=== PATIENT | male | born 1955 | race Hispanic/Latino ===

== ENCOUNTER 2017-03-26 20:55 | Inpatient (IN) | payer MEDICARE ==
[2017-03-26 22:16] LABS: ABG ALLEN TEST YES; ARTERIAL BLOOD GAS HCO3 26.9 mmol/L (21-28); ARTERIAL BLOOD GAS PH 7.44 (7.35-7.45); ARTERIAL BLOOD GAS PO2 58 mm/Hg (80-100)
[2017-03-26 22:19] LABS: BASO # 0.1 K/uL (0.0-0.2); EOS # 0.3 K/uL (0.0-0.7); EOS % 5.1 % (0.0-4.0); HEMATOCRIT 40.4 % (35.0-51.0); LYMPH # 1.9 K/uL (1.0-4.3); LYMPH % 28.2 % (20.0-40.0); MEAN CELL VOLUME 82.7 fl (80.0-94.0); MEAN CORPUSCULAR HEMOGLOBIN 27.3 pg (27.0-31.0); MEAN CORPUSCULAR HGB CONC 33.1 g/dL (33.0-37.0); MEAN PLATELET VOLUME 7.1 fl (7.2-11.7); MONO # 0.7 K/uL (0.0-0.8); MONO % 10.1 % (0.0-10.0); NEUT # 3.8 K/uL (1.8-7.0); NEUT % 55.6 % (50.0-75.0); RED CELL DISTRIBUTION WIDTH 15.7 % (11.5-14.5); WHITE BLOOD COUNT 6.8 K/uL (4.8-10.8)
--- NOTE | 2017-03-26 22:22 | ED PDOC ---
HPI: SOB/CHF/COPD Time Seen by Provider: 03/26/17 21:00 Chief Complaint (Nursing): Shortness Of Breath Chief Complaint (Provider): Shortness of Breath History Per: Patient, Family History/Exam Limitations: no limitations Onset/Duration Of Symptoms: Days (x 1) Additional Complaint(s): 61 year old male with past medical history of glioblastoma, atherosclerosis and seizures, brought in by family, who presents to the emergency department with difficulty breathing since yesterday. Patient is reported by family to be generally weaker than baseline. He fell off the couch onto the carpet earlier today and is reported as being less verbal than normal. Was just discharged from [facility]. Dr. Hughes pt neurologist at [facility] did an EEG this morning that was negative and started patient on seizure medication. Denies fever, vomiting, diarrhea. PMD: Dr. Les Holguin MD Past Medical History Reviewed: Historical Data, Nursing Documentation, Vital Signs Vital Signs: Last Vital Signs Temp 97.6 F 03/27/17 02:35 Pulse 70 03/27/17 04:15 Resp 18 03/27/17 02:44 BP 175/90 H 03/27/17 02:35 Pulse Ox 93 L 03/27/17 04:57 - Medical History PMH: Diabetes, HTN, Seizures - Surgical History Other surgeries: Brain surgery. History of neoblastoma - Family History Family History: States: Unknown Family Hx - Social History Current smoker - smoking cessation education provided: No Alcohol: None - Home Medications Home Medications: Ambulatory Orders Medication Instructions Recorded Cilostazol [Pletal] 50 mg PO Q12 03/27/17 Clopidogrel [Plavix] 75 mg PO DAILY 03/27/17 Ergocalciferol (Vitamin D2) 1.25 mg PO QWK 03/27/17 [Vitamin D2] Escitalopram [Lexapro] 10 mg PO DAILY 03/27/17 Iron Ps Cmplx/Vit B12/FA [Ferrex 150 mg PO Q12 03/27/17 150 Forte Capsule] Labetalol [Trandate] 100 mg PO Q12 03/27/17 Lacosamide [Vimpat] 150 mg PO Q12 03/27/17 Linagliptin [Tradjenta] 5 mg PO DAILY 03/27/17 Metformin HCl [Glucophage] 500 mg PO DAILY 03/27/17 Rosuvastatin Calcium [Crestor] 20 mg PO DAILY 03/27/17 Ubidecarenone [Coq-10] 100 mg PO DAILY 03/27/17 - Allergies Allergies/Adverse Reactions: Allergies Allergy/AdvReac Type Severity Reaction Status Date / Time No Known Allergies Allergy Verified 03/30/15 08:43 Review of Systems ROS Statement: Except As Marked, All Systems Reviewed And Found Negative (as per HPI, otherwise negative) Constitutional: Positive for: Weakness (Generalized). Negative for: Fever Respiratory: Positive for: Other (Difficulty breathing) Gastrointestinal: Negative for: Vomiting, Diarrhea Neurological: Positive for: Other (Less verbal) Physical Exam - Reviewed Nursing Documentation Reviewed: Yes Vital Signs Reviewed: Yes - Physical Exam Appears: Positive for: Non-toxic, No Acute Distress Head Exam: Positive for: ATRAUMATIC, NORMAL INSPECTION, NORMOCEPHALIC Skin: Positive for: Normal Color, Warm, Dry Eye Exam: Positive for: Normal appearance, PERRL Cardiovascular/Chest: Positive for: Regular Rate, Rhythm. Negative for: Murmur Respiratory: Positive for: Normal Breath Sounds. Negative for: Accessory Muscle Use, Respiratory Distress Gastrointestinal/Abdominal: Positive for: Normal Exam, Soft. Negative for: Tenderness Extremity: Negative for: Pedal Edema Neurologic/Psych: Positive for: Alert, Oriented (x1. Only to his name. ), Facial Droop (according to family, this is from previous (left facial)), Other (responsive to painful and verbal stimuli; follows basic commands). Negative for: Motor/Sensory Deficits - Laboratory Results Result Diagrams: 03/26/17 22:10 03/26/17 22:10 - ECG O2 Sat by Pulse Oximetry: 93 (RA) Pulse Ox Interpretation: Normal Medical Decision Making Medical Decision Making: Time: 21:50 Clinical Impression:weakness rule out infection as well as stroke. Initial Plan: --ABG Shock Panel --Heat CT without contrast --CMP --CBC (with differential) --Chest X-ray --Urine C&S --Urinalysis --Sodium Chloride 150 mls/hr IV Time: 21:50 --Spoke with Dr. Holguin. He agreed with plan of imaging and labs. --Dr. Holguin wants to consult Dr. Quezada of neurology 3[address] FINDINGS Brain: Ezff-wa-pmcorlca atrophy. No intracranial hemorrhage. No definite mass. Small calcification within brainstem. No definite edema. Probable mild encephalomalacia within LEFT temporal region. Several scattered foci of decreased attenuation within periventricular/ subcortical white matter. No definite edema. Ventricles: No hydrocephalus. Bones/joints: No acute fracture. LEFT craniotomy. Soft tissues: Unremarkable. Sinuses: Scattered pfzt-mz-jyfcxgrr mucosal thickening of ethmoid sinuses. Scattered minimal to mild mucosal thickening of remaining sinuses. Mastoid air cells: No mastoid effusion. Orbits: Unremarkable as visualized. IMPRESSION: 1. Nonspecific white matter changes. Acute infarction may be CT occult within first 24 hours. If a focal deficit persists, consider followup CT or MRI for further evaluation. 2. Incidental/non-acute findings are described above. Pt and family refusing Urine. explained that we need it to rule out UTI. ABG noted, o2 slightly low. patients 02 sat on room air is 95%. family raises issue that pt could have sleep apnea, doest sleep well at night/snoring etc Scribe Attestation: Documented by Moncia Peacock, acting as a scribe for Kamilla Casetllanos MD. Provider Scribe Attestation: All medical record entries made by the Scribe were at my direction and personally dictated by me. I have reviewed the chart and agree that the record accurately reflects my personal performance of the history, physical exam, medical decision making, and the department course for this patient. I have also personally directed, reviewed, and agree with the discharge instructions and disposition. Disposition - Clinical Impression Clinical Impression: Generalized weakness, Falls - Disposition Disposition Time: 23:00 Condition: STABLE
[2017-03-26 22:27] LABS: ALB/GLOB RATIO 1.2 (1.0-2.1); ALKALINE PHOSPHATASE 68 U/L (38-126); ALT/SGPT 32 U/L (21-72); AST/SGOT 25 U/L (17-59); BILIRUBIN,TOTAL 0.2 mg/dl (0.2-1.3); BLOOD UREA NITROGEN 16 mg/dl (9-20); CALCIUM 8.9 mg/dL (8.4-10.2); CARBON DIOXIDE 25 mmol/L (22-30); CHLORIDE 106 mmol/L (98-107); GFR AFRICAN-AMERICAN > 60; GLUCOSE,RANDOM 114 mg/dL (75-110); POTASSIUM 3.9 MMOL/L (3.6-5.0); SODIUM 142 mmol/l (132-148); TOTAL PROTEIN 7.9 G/DL (6.3-8.2)
[2017-03-26] MEDS ORDERED: Sodium Chloride 0.9% 1,000 ML IV STA (22:47)
--- NOTE | 2017-03-26 23:28 | CT ---
EXAM: CT Head Without Intravenous Contrast CLINICAL HISTORY: 61 years old, male; Condition or disease; Other: Lethargy; Prior surgery; Surgery date: 6+ months; Surgery type: 2010; Patient HX: Neoblastoma; Additional info: Lethargy. Sent phy. Doc. TECHNIQUE: Axial computed tomography images of the head/brain without intravenous contrast. All CT scans at this facility use one or more dose reduction techniques, viz.: automated exposure control; ma/kV adjustment per patient size (including targeted exams where dose is matched to indication; i.e. head); or iterative reconstruction technique. Coronal and sagittal reformatted images were created and reviewed. COMPARISON: MR - BRAIN W WO CONTRAST 2015-03-30 08:07 FINDINGS: Brain: Otsa-oc-llzcifax atrophy. No intracranial hemorrhage. No definite mass. Small calcification within brainstem. No definite edema. Probable mild encephalomalacia within LEFT temporal region. Several scattered foci of decreased attenuation within periventricular/subcortical white matter. No definite edema. Ventricles: No hydrocephalus. Bones/joints: No acute fracture. LEFT craniotomy. Soft tissues: Unremarkable. Sinuses: Scattered apjb-nc-klsaprrs mucosal thickening of ethmoid sinuses. Scattered minimal to mild mucosal thickening of remaining sinuses. Mastoid air cells: No mastoid effusion. Orbits: Unremarkable as visualized. IMPRESSION: 1. Nonspecific white matter changes. Acute infarction may be CT occult within first 24 hours. If a focal deficit persists, consider followup CT or MRI for further evaluation. 2. Incidental/non-acute findings are described above.
[2017-03-27] MEDS ORDERED: Ergocalciferol 50,000 Intl Units Cap PO SCH (04:15)
[2017-03-27 06:36] LABS: MAGNESIUM 2.1 MG/DL (1.6-2.3); PHOSPHOROUS 3.7 mg/dl (2.5-4.5)
[2017-03-27] MEDS ORDERED: UBIDECARENONE 100 MG PO SCH (09:00)
[2017-03-27] MEDS ORDERED: [UNRECOGNIZED DRUG - OTHER] PO SCH (09:00)
[2017-03-27] MEDS ORDERED: IRON PS CMPLX PO SCH (09:00)
[2017-03-27] MEDS ORDERED: VIT B12 PO SCH (09:00)
[2017-03-27] MEDS: Insulin Regular 100 units/ml SC SCH ×3 (09:09→16:43)
--- NOTE | 2017-03-27 09:29 | RAD ---
HISTORY: lethargy COMPARISON: No prior. FINDINGS: LUNGS: No consolidation. Lung volumes are shallow - PLEURA: No significant pleural effusion identified, no pneumothorax apparent. CARDIOVASCULAR: Heart size within normal limits - crowded central pulmonary vasculature OSSEOUS STRUCTURES: No significant abnormalities. VISUALIZED UPPER ABDOMEN: Normal. OTHER FINDINGS: None. IMPRESSION: Limited exam-given shallow inspiration /shallow lung volumes. No obvious cardiopulmonary pathology appreciated
[2017-03-27] MEDS ORDERED: Sodium Chloride 3% for Inhalation 4 ML VIAL.NEB IH PRN (09:32)
[2017-03-27] MEDS ORDERED: Albuterol-Ipratrop 3 mg / 0.5 (3 ml) UD INH PRN (09:35)
[2017-03-27] MEDS ORDERED: Gadodiamide 287 MG/ML VIAL (15ML) IV ONE (09:46)
--- NOTE | 2017-03-27 10:29 | CP.PCM.PN ---
Subjective - Date & Time of Evaluation Date of Evaluation: 03/27/17 Time of Evaluation: 10:24 - Subjective Subjective: 61 year old male admitted with neurological issues was found to have 600cc pvr on straight catheterazation,pt has hx glioblastoma and is being worked up for acute pathology by neurology,PT is in mri at this time Suggest start pt on flomax get urine c&s Cath again after flomax and if PVR is greater then 250cc leave renae in place. [place] Objective - Vital Signs/Intake and Output Vital Signs (last 24 hours): Temp Pulse Resp BP Pulse Ox 97 F L 70 18 164/89 H 99 03/27/17 08:00 03/27/17 08:00 03/27/17 08:00 03/27/17 08:00 03/27/17 08:00 - Medications Medications: Current Medications Albuterol/Ipratropium (Duoneb 3 Mg/0.5 Mg (3 Ml) Ud) 3 ml INH RQ6 PRN PRN Reason: Shortness of Breath Atorvastatin Calcium (Lipitor) 40 mg PO DAILY [facility] Cilostazol (Pletal) 50 mg PO Q12 [facility] Clopidogrel Bisulfate (Plavix) 75 mg PO DAILY [facility] Ergocalciferol (Drisdol 50,000 Intl Units Cap) 1 cap PO QWK [facility] Escitalopram Oxalate (Lexapro) 10 mg PO DAILY [facility] Home Med (Iron Ps Cmplx/Vit B12/Fa [Ferrex 150 Forte Capsule]) 150 mg PO Q12 [facility] Home Med (Ubidecarenone [Coq-10]) 100 mg PO DAILY [facility] Insulin Human Regular (Humulin R) 0 units SC BID [facility] PRN Reason: Protocol Last Admin: 03/27/17 09:10 Dose: Not Given Labetalol HCl (Trandate) 100 mg PO Q12 [facility] Lacosamide (Vimpat) 150 mg PO Q12 [facility] Metformin HCl (Glucophage) 500 mg PO DAILY [facility] Sitagliptin Phosphate (Januvia) 100 mg PO DAILY [facility] Tamsulosin HCl (Flomax) 0.4 mg PO DAILY [facility] - Labs Labs: 03/26/17 22:10 03/26/17 22:10
[2017-03-27 10:41] LABS: RBC URINE 9 /hpf (0-3); URINE BACTERIA RARE (<OCC); URINE BILIRUBIN NEGATIVE (NEGATIVE); URINE BLOOD SMALL (NEGATIVE); URINE COLOR YELLOW (YELLOW); URINE GLUCOSE (UA) NEG (Normal); URINE KETONE NEGATIVE (NEGATIVE); URINE LEUKOCYTE ESTERASE NEG Leu/uL (Negative); URINE PROTEIN NEGATIVE (NEGATIVE); URINE UROBILINOGEN 0.2-1.0 mg/dL (0.2-1.0); WBC URINE < 1 /hpf (0-5)
--- NOTE | 2017-03-27 11:18 | MRI ---
PROCEDURE: MRI BRAIN WITH AND WITHOUT CONTRAST HISTORY: recurrent mass COMPARISON: Comparison is made to the previous study dated 03/30/2015 TECHNIQUE: Multiplanar, multisequence MR images of the brain were obtained with and without intravenous contrast enhancement. FINDINGS: HEMORRHAGE: None DWI: There are foci of diffusion restriction noted at the right indu and left internal capsule consistent with acute / early subacute infarction. BRAIN PARENCHYMA: Foci of encephalomalacia is again noted at the left temporal region without evidence of enhancement likely represent encephalomalacia and post surgical changes given the patient's history of prior tumor resection at this region. There is adjacent ex vacuo dietitian of the left lateral ventricle. Bexi-em-dndbznkv atrophy is again noted. Moderate to extensive white matter chronic microvascular ischemic changes are again noted. ENHANCEMENT: No abnormal intracranial enhancement. VENTRICLES: Unremarkable. No hydrocephalus. CRANIUM: Unremarkable. ORBITS: Grossly unremarkable. PARANASAL SINUSES/MASTOIDS: Mild sinuses mucosal thickening is noted without evidence of air-fluid level. VASCULAR SYSTEM: Skull base flow voids intact. OTHER FINDINGS: None . IMPRESSION: Foci of diffusion restriction with mild increased FLAIR signal noted at the right indu and left internal capsule consistent with acute/ early subacute infarction. Otherwise no significant interval change compared to the previous exam. No evidence of enhancing mass lesion in the brain. Findings were reported to and discussed with the referring Dr.Krish Vikas MCDONOUGH at 11:07 a.m. on 03/27/2017.
[2017-03-27 12:09] VITALS: BMI 29.2
[2017-03-27] MEDS: Lacosamide 50 MG Tab PO SCH ×2 (13:10→22:25)
[2017-03-27] MEDS: Cilostazol 50 mg Tab UD PO SCH ×2 (13:12→22:25)
--- NOTE | 2017-03-27 15:16 | US ---
PROCEDURE: Bilateral duplex Doppler carotid arterial ultrasound examination HISTORY: falls lethargy COMPARISON: Not available TECHNIQUE: Ultrasound examination of the carotid and vertebral arteries was performed utilizing a linear array color Doppler transducer. FINDINGS: Right carotid artery: Intimal thickening seen throughout the CCA. No atheromatous plaque identified. Peak systolic velocity measurements: CCA: 111.3 cm/sec ICA: 62.9 cm/sec ICA/CCA peak systolic velocity ratio: 0.6 Antegrade flow demonstrated in vertebral artery Left carotid artery: Intimal thickening seen throughout CCA. No atheromatous plaque identified. Peak systolic velocity measurements: CCA: 92.4 cm/sec ICA: 74.7 cm/sec ICA/CCA peak systolic velocity ratio: 0.8 Antegrade flow demonstrated in vertebral artery IMPRESSION: No evidence of hemodynamically significant carotid arterial stenosis bilaterally (less than 50 percent).
--- NOTE | 2017-03-27 16:26 | CARD ---
APPROVED REPORT EKG Measurement Heart [id number] <Conclusion> Normal sinus rhythm Nonspecific T wave abnormality Abnormal ECG
[2017-03-27] MEDS: Aspirin-Dipyridamole 200-25 mg ER Cap PO SCH (16:43)
[2017-03-27] MEDS: Sodium Chloride 0.9% 1,000 ML IV SCH (19:30)
--- NOTE | 2017-03-27 20:30 | MRI ---
EXAM: MR Angiography Neck Without Intravenous Contrast CLINICAL HISTORY: 61 years old, male; Signs and symptoms; Other: Vasculitis TECHNIQUE: Magnetic resonance angiography images of the neck without intravenous contrast. COMPARISON: No relevant prior studies available. FINDINGS: Right common carotid artery: No significant stenosis. No dissection or occlusion. Right internal carotid artery: No significant stenosis. No dissection or occlusion. Right external carotid artery: No occlusion. Right vertebral artery: Diminutive. No dissection or occlusion. Left common carotid artery: No significant stenosis. No dissection or occlusion. Left internal carotid artery: No significant stenosis. No dissection or occlusion. Left external carotid artery: No occlusion. Left vertebral artery: Dominant. No dissection or occlusion. Soft tissues: Unremarkable as visualized. CAROTID STENOSIS REFERENCE USING NASCET CRITERIA: % ICA stenosis = (1 - narrowest ICA diameter/diameter of distal cervical ICA) x 100. Mild - <50% stenosis. Moderate - 50-69% stenosis. Severe - 70-94% stenosis. Near occlusion - 95-99% stenosis. Occluded - 100% stenosis. IMPRESSION: No significant stenosis or occlusion.
--- NOTE | 2017-03-28 00:59 | CON ---
DATE: 03/27/2017 REASON FOR THE CONSULTATION: Change in mental status and new weakness. CHIEF COMPLAINT: The patient was brought into [facility] with history of progressive weakness and change in mental status. From neurological point of view, I was called in to evaluate him for further management. HISTORY OF PRESENTING ILLNESS: Mr. Margo Martinez is a 61-year-old right-handed Stateless male who is known to me for the last more than 3 years. He is being seen by me for his new onset of seizures and workup showed left temporal lobe primary tumor (glioblastoma). Following that, he did undergo craniotomy, radiation, and chemotherapy. Patient was kept on Vimpat 150 mg for his seizure prophylaxis. He has been doing well and he has been doing his day-to-day activities. No recent seizures. Recently been evaluated by Dr. Uribe as outpatient; he did have electroencephalogram in his office and electroencephalogram shows bilateral slow activities with some sharp wave activities over his left temporal region. Medications were trying to be adjusted for the abnormal change in mental status and abnormal EEGs. However, his status got worsened to become a problem in swallow, speech, including change in mental status and progressive weakness on his right side. No history of loss of consciousness or any involuntary movements during the whole process of his event. PAST MEDICAL HISTORY: Hypertension, diabetes mellitus, dyslipidemia, primary brain tumor status post surgery, radiation therapy, and seizures. PERSONAL HISTORY: Denies smoking or alcohol use. ALLERGIES: NO KNOWN ALLERGIES. REVIEW OF SYSTEMS: Twelve-point system being reviewed. From neuro, new onset of weakness. MEDICATIONS: Drisdol, DuoNeb, Flomax, Glucophage, Humulin, Januvia, Lexapro, Lipitor, Plavix, cilostazol, and Vimpat. PHYSICAL EXAMINATION: VITAL SIGNS: Blood pressure 121/73, mean arterial pressure of 89, respiratory rate of 16, temperature 97.7 with a pulse rate of 75, regular. NECK: Supple. No carotid bruit. HEART: Sounds regular. EXTREMITIES: Left leg externally rotated. NEUROLOGIC: Patient is arousable on calling his name. He knows his family members; however, he could not recognize me. He does not follow commands. He falls back asleep with snoring. No Shivam-Strokes breathing pattern. His speech is dysarthric. No clear speech output noted. Cranial Nerve Examination: Responded to visual threat on his both sides. Corneal reflex is present. No facial sensory deficit. Dense facial asymmetry manifesting with flattening of left nasolabial fold. Impaired gag. Motor Examination: Dense hemiplegia on his left side. Deep tendon reflexes, trace. Plantars are upgoing majestically on his left side, right side was equivocal response. Sensory Examination: Responded to pain symmetrically on both sides. Coordination: Gait is deferred at this time. Patient also showed evidence of urinary retention. WORKUP: MRI of the brain showed diffusion-weighted image mismatch at right pontine and left thalamic region with superimposed encephalomalacia over his left temporal lobe. Patient also showed significant evidence of periventricular ischemic changes consistent with his small vessel disease secondary to his hypertension and diabetes mellitus with superimposed radiationd history. RECOMMENDATIONS: 1. The patient being on Plavix only; I would like to put him on better dual antiplatelets, Aggrenox is given. 2. Speech and swallow evaluation and follow their recommendation. 3. Keep the head in elevation. 4. Keep mean arterial pressure around 90 to 100. 5. Aspiration precaution.and continuos Michaels catheterization The patient's condition extensively discussed with Dr. Holguin as well as Dr. Bryan. Patient also is scheduled to have transesophageal echocardiogram on Saturday and routine echocardiogram does not show any left atrial enlargement or any thrombus formation in the atrium as well as in the ventricle. The patient will be followed closely with you. Vikas Quezada MD [facility]
--- NOTE | 2017-03-28 08:54 | RAD ---
PROCEDURE: CHEST RADIOGRAPH, 1 VIEW HISTORY: PNEUMONIA COMPARISON: 03/26/2017 FINDINGS: LUNGS: Clear. PLEURA: No pneumothorax or pleural fluid seen. CARDIOVASCULAR: Normal. OSSEOUS STRUCTURES: No significant abnormalities. VISUALIZED UPPER ABDOMEN: Normal. OTHER FINDINGS: None. IMPRESSION: No new infiltrate or CHF. Improved aeration.
--- NOTE | 2017-03-28 09:35 | CP.PCM.PN ---
Subjective - Date & Time of Evaluation Date of Evaluation: 03/28/17 Time of Evaluation: 09:37 - Subjective Subjective: MORE AWAKE TODAY MOTHER AT BEDSIDE STILL HAVING PROBLEMS SWALLOWING FOOD Objective - Vital Signs/Intake and Output Vital Signs (last 24 hours): Temp Pulse Resp BP Pulse Ox 98.1 F 72 18 143/77 99 03/28/17 08:23 03/28/17 08:23 03/28/17 08:23 03/28/17 08:23 03/28/17 08:23 Intake and Output: 03/28/17 03/28/17 06:59 18:59 Intake Total 720 Output Total 550 Balance 170 - Medications Medications: Current Medications Albuterol/Ipratropium (Duoneb 3 Mg/0.5 Mg (3 Ml) Ud) 3 ml INH RQ6 PRN PRN Reason: Shortness of Breath Atorvastatin Calcium (Lipitor) 40 mg PO DAILY [facility] Last Admin: 03/27/17 13:12 Dose: 40 mg Cilostazol (Pletal) 50 mg PO Q12 [facility] Last Admin: 03/27/17 22:25 Dose: 50 mg Clopidogrel Bisulfate (Plavix) 75 mg PO DAILY [facility] Last Admin: 03/27/17 13:12 Dose: 75 mg Dipyridamole/Aspirin (Aggrenox 25-200 Mg) 1 ea PO BID [facility] Last Admin: 03/27/17 16:43 Dose: 1 ea Ergocalciferol (Drisdol 50,000 Intl Units Cap) 1 cap PO QWK [facility] Escitalopram Oxalate (Lexapro) 10 mg PO DAILY [facility] Last Admin: 03/27/17 13:12 Dose: 10 mg Home Med (Iron Ps Cmplx/Vit B12/Fa [Ferrex 150 Forte Capsule]) 150 mg PO Q12 [facility] Home Med (Ubidecarenone [Coq-10]) 100 mg PO DAILY [facility] Sodium Chloride (Sodium Chloride 0.9%) 1,000 mls @ 60 mls/hr IV .[id number] [facility] Stop: 03/28/17 17:34 Last Admin: 03/27/17 19:30 Dose: 60 mls/hr Insulin Human Regular (Humulin R) 0 units SC BID [facility] PRN Reason: Protocol Last Admin: 03/27/17 16:43 Dose: Not Given Labetalol HCl (Trandate) 100 mg PO Q12 [facility] Last Admin: 03/27/17 22:25 Dose: 100 mg Lacosamide (Vimpat) 150 mg PO Q12 [facility] Last Admin: 03/27/17 22:25 Dose: 150 mg Metformin HCl (Glucophage) 500 mg PO DAILY [facility] Last Admin: 03/27/17 13:10 Dose: 500 mg Sitagliptin Phosphate (Januvia) 100 mg PO DAILY [facility] Last Admin: 03/27/17 10:00 Dose: Not Given Tamsulosin HCl (Flomax) 0.4 mg PO DAILY [facility] Last Admin: 03/27/17 13:10 Dose: 0.4 mg Tamsulosin HCl (Flomax) 0.4 mg PO DAILY [facility] - Labs Labs: 03/26/17 22:10 03/26/17 22:10 - Constitutional Appears: Chronically Ill - Head Exam Head Exam: ATRAUMATIC, NORMAL INSPECTION, NORMOCEPHALIC - Eye Exam Eye Exam: EOMI, Normal appearance, PERRL Pupil Exam: NORMAL ACCOMODATION, PERRL - ENT Exam ENT Exam: Mucous Membranes Moist, Normal Exam - Neck Exam Neck Exam: Full ROM, Normal Inspection. absent: Lymphadenopathy - Respiratory Exam Respiratory Exam: Decreased Breath Sounds, Rales, NORMAL BREATHING PATTERN - Cardiovascular Exam Cardiovascular Exam: REGULAR RHYTHM, +S1, +S2. absent: Murmur - GI/Abdominal Exam GI & Abdominal Exam: Soft, Normal Bowel Sounds. absent: Tenderness - Rectal Exam Rectal Exam: NORMAL INSPECTION - Extremities Exam Extremities Exam: Full ROM, Normal Capillary Refill, Normal Inspection. absent : Joint Swelling, Pedal Edema - Back Exam Back Exam: NORMAL INSPECTION - Neurological Exam Neurological Exam: Alert, Awake, CN II-XII Intact - Skin Skin Exam: Dry, Intact, Normal Color, Warm Assessment and Plan - Assessment and Plan (Free Text) Assessment: ASPIRATION PNEUMONIA PROBABLY DUE TO NEW BRAIN INFARCT Plan: CONTINUE PULMONARY TOILETRY NO NEED FOR ANTIBIOTIC RX AT PRESENT UNLESS FEVER/PURULENT SECRETIONS/POSITIVE CULTURES RESULT
[2017-03-28] MEDS: Insulin Regular 100 units/ml SC SCH ×2 (09:37→16:46)
[2017-03-28] MEDS: Cilostazol 50 mg Tab UD PO SCH ×2 (09:39→20:36)
[2017-03-28] MEDS: Aspirin-Dipyridamole 200-25 mg ER Cap PO SCH ×2 (09:40→17:26)
[2017-03-28] MEDS: Lacosamide 50 MG Tab PO SCH ×2 (09:44→20:34)
[2017-03-28] MEDS: Sodium Chloride 0.9% 1,000 ML IV SCH (12:33)
--- NOTE | 2017-03-28 16:24 | PN ---
DATE: 03/28/2017 SUBJECTIVE: The patient is seen today on 03/28/2017. He is not in any cardiopulmonary distress. The patient still has significant choking and difficulty swallowing. The patient is still open for swallowing evaluation. PHYSICAL EXAMINATION VITAL SIGNS: Blood pressure is 140/70, temperature 98.2, respiratory rate 18 and pulse is 72. HEENT: Pupils equal, reactive to light. Normal-appearing mucosa of the conjunctivae, oropharynx and nasal membrane mucosa. NECK: Supple. No JVD. No carotid bruit. No lymph nodes. No thyromegaly. CHEST AND LUNGS: Bilateral symmetrical expansion. Good air exchange. No rales, no rhonchi. CARDIOVASCULAR: PMI not localized. S1 and S2. No additional sounds. ABDOMEN: Normoactive bowel sounds. No tenderness. No organomegaly. No masses. EXTREMITIES: No cyanosis, no clubbing, no edema. 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 ASSESSMENT: 1. 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 2. Status post brain surgery for glioblastoma in 2010, status post radiation therapy and chemotherapy, currently being followed [facility] and he is not in any active oncology treatment. 3. Type 2 diabetes mellitus. 4. Hypertension. PLAN: Continue current medications and follow recommendations of Neurology. Les Holguin MD
--- NOTE | 2017-03-28 20:53 | PN ---
DATE: SUBJECTIVE: The patient is slightly more awake. He still has expressive aphasia and significant left-sided weakness. No reports of arrhythmia. PHYSICAL EXAMINATION: VITAL SIGNS: Blood pressure 151/82, heart rate 81, temperature 97.8, respirations 18. HEENT: Loss of left nasolabial fold. CHEST: Clear. HEART: S1 and S2 regular. EXTREMITIES: No edema. LABORATORY DATA: Today's blood sugar is 120. Today's chest x-ray revealed no new infiltrate or CHF. Improved aeration. ASSESSMENT: 1. Acute/subacute cerebrovascular accident involving the right side of the indu and the left internal capsule with residual left hemiplegia and expressive aphasia. 2. History of left temporal glioblastoma removal, six years ago. 3. Hypertension and diabetes mellitus. RECOMMENDATION: Continue current Aggrenox at 1 tablet twice a day, metformin 500 mg daily, Lipitor 20 mg once a day, Plavix 75 mg once a day, Pletal 50 mg p.o. twice a day, labetalol mg p.o. twice a day. The patient was evaluated by Dr. Murrell today and he recommended to continue pulmonary toiletry, no need for antibiotics at present time. Raúl Bryan MD
[2017-03-29] MEDS ORDERED: Dextrose 5%/0.9% NS 1,000 ML IV SCH (07:45)
--- NOTE | 2017-03-29 07:49 | HP ---
DATE: 03/27/2017 HISTORY OF PRESENT ILLNESS: This is a 61-year-old [place] male with history of status post brain surgery for glioblastoma, currently on antiseizure medications. The patient presented to the hospital for symptoms of inability to walk and difficulty in speech that has been happening in a fluctuating way for 4 days prior to this admission. The patient had previous visits to emergency room and one-night admission to the hospital during the last 4 days prior to this admission for similar presentation. The patient was admitted through emergency room for further management after neurology was consulted. CAT scan of the head was done that did not show any acute focal lesions. REVIEW OF SYSTEM: Other review of systems is not obtainable as the patient is aphasic at this time of examination. ALLERGIES: NO KNOWN ALLERGY. HOME MEDICATIONS: As per MAR. PAST MEDICAL HISTORY: Status post brain surgery glioblastoma multiforme done in 09/2010. Hypertension and type 2 diabetes mellitus. SOCIAL HISTORY: No history of smoking, EtOH, or substance abuse. FAMILY HISTORY: Noncontributory. PHYSICAL EXAMINATION: GENERAL: The patient is in bed, not in any cardiopulmonary distress. VITAL SIGNS: Blood pressure 126/75, temperature 98.3, respiratory rate 14 and pulse of 85. HEENT: Pupils equal, reactive to light. Normal-appearing mucosa of the conjunctivae, oropharynx, and nasal membrane mucosa. NECK: Supple. No JVD. No carotid bruit. No lymph node. No thyromegaly. CHEST AND LUNGS: Bilateral symmetrical expansion. Good air exchange. No rales, no rhonchi. CARDIOVASCULAR: PMI not localized. S1 and S2. No additional sounds. ABDOMEN: Normoactive bowel sounds. No tenderness. No organomegaly. No masses. EXTREMITIES: No cyanosis, no clubbing and no edema. CENTRAL NERVOUS SYSTEM: Awake and follow commands but there is left-sided upper motor neuron facial as well as left-sided hemiparesis. MRI of the head showed right indu as well as left internal capsule infarctions acute or early subacute. ASSESSMENT: Cardiovascular accident with left-sided hemiparesis and left upper motor neuron facial as well as difficulty swallowing and speech. PLAN: We will continue IV fluid, Michaels catheter for urinary retention, Accu-Cheks with insulin coverage, continue antiseizure medications, swallowing evaluations, physical therapy, neurology followup, and neurology recommendations. [facility] MD [facility] # [id number]
[2017-03-29] MEDS: Insulin Regular 100 units/ml SC SCH ×2 (08:00→17:00)
--- NOTE | 2017-03-29 08:15 | CON ---
CARDIOLOGY CONSULTATION DATE: REASON FOR CONSULTATION: CVA. HISTORY OF PRESENT ILLNESS: The patient is a 61-year-old [place] male who has a history of craniotomy for glioblastoma six years ago, and initially the tumor was found in the left temporal lobe. The patient since then has been on antiseizure medications and underwent radiation therapy with a followup MRI every six months. The patient had multiple ischemic strokes following the surgery. On Saturday, the patient was admitted to [facility] because of lethargy and speech difficulty. He recovered after overnight stay and was discharged to be readmitted yesterday because of left sided weakness and aphasia. A brain MRI performed today and revealed foci of diffusion restriction with mild increased FLAIR signal noted at the right indu and left internal capsule consistent with acute/early subacute infarction. No known history of arrhythmia and no reported seizure activity since the patient has a surgery, and the patient has been on seizure medications since he had his surgery. MEDICATIONS: The patient was on Plavix at 75 mg daily and Pletal 50 mg twice a day at home. Restart metformin 500 mg p.o. daily, Crestor 20 mg once a day, linagliptin 5 mg daily, labetalol 100 mg q. 12 hours, Lexapro 10 mg daily. REVIEW OF SYSTEMS: The patient is able to tolerate solid food, but no clear liquids. No fever or chills. No nausea or vomiting. PHYSICAL EXAMINATION: GENERAL: The patient is a middle-aged male who is lethargic, but responds to verbal commands. He has expressive aphasia. VITAL SIGNS: Blood pressure 121/73, heart rate 75, temperature 97.7, and respirations 16. HEENT: Loss of nasolabial fold. NECK: No JVD. CHEST: Clear. HEART: S1 and S2, regular. EXTREMITIES: No edema. LABORATORY DATA: SMA-7 is within normal limits except for glucose of 114. CBC: WBC 6.8, hemoglobin 13.4, hematocrit 40.4, platelet count 249,000. EKG revealed normal sinus rhythm at the rate of 70. I did review the echocardiography study, which revealed moderate concentric LVH with normal ejection fraction and normal left atrial size. ASSESSMENT: 1. Status post acute cerebrovascular accident involving the left internal capsule and right indu. 2. History of craniotomy for left temporal glioblastoma six years ago. 3. Hypertension and diabetes mellitus. RECOMMENDATIONS: Case was discussed at length with the primary physician, Dr. Holguin, and with the neurologist, Dr. Quezada. The patient will be maintained on Aggrenox at one tablet twice a day, Lipitor at 40 mg once a day, Plavix 75 mg once a day, Pletal at 50 mg twice a day, labetalol at 100 mg twice a day, and Vimpat at 150 mg twice a day as antiseizures. Further consideration for ABBY after more medical stability, and the earliest will be for Saturday in two days. Raúl Bryan MD
--- NOTE | 2017-03-29 08:38 | CON ---
DATE: HISTORY OF PRESENT ILLNESS: Mr. Martinez is a 61-year-old male who was referred for pulmonary consultation by Dr. Holguin. He was admitted via the emergency room because of lethargy, shortness of breath, which started 2 days prior to presentation. He was unable to give any history, but seems to respond appropriately to verbal commands by moving eyes, opening mouth and nodding his head. His family is at bedside, a brother and mother. He has a history of glioblastoma, which was surgically resected about 6 years ago and has also arteriosclerosis and seizures. As per brother, he recently had an EEG of the brain, which was unremarkable and he was just discharged from [facility]. The patient is unable to give any history, but family indicated that a few days prior to his presentation, they found out he was getting more lethargic, was snoring at night and had breath-holding episodes. He also was having difficulty swallowing, even simple orange juice was difficult to swallow and he has a lot of mucus secretions in his upper airways. FAMILY HISTORY: Nonrevealing. No other history is obtained. PHYSICAL EXAMINATION: GENERAL: The patient is responsive to verbal commands. Easily arousable, but feels somewhat drowsy. VITAL SIGNS: Remarkable for blood pressure of 164/89 with a pulse of 70, respiratory rate 18. He is afebrile. O2 sat 99% on room air. HEENT: Mouth shows fair hygiene with some mucosal engorgement of pharynx. LUNGS: Fair aeration. Some dullness at the bases. HEART: S1 and S2. ABDOMEN: Soft, nontender. No organomegaly. EXTREMITIES: Show no edema or cyanosis. CENTRAL NERVOUS SYSTEM: The patient is easily arousable. Moves all extremities, right better than left. He is able to grab my fingers and squeeze. The left side of the body appears somewhat weak. The patient is also able to open up his mouth on being instructed to do so and open up his eyes. LABORATORY DATA: Remarkable for WBC of 6.8, hemoglobin 13.4, platelet count of 249,000. ABGs done on room air: PH 7.44, pCO2 of 40, pO2 of 58, O2 sat 95%. Sodium 142, potassium 3.9, BUN of 16, creatinine 1.0, serum glucose 114. Chest x-ray official report pending, but reviewed by me, one does not see any acute cardiopulmonary pathology . CAT scan of the brain official report indicates no specific white matter changes. Acute infarctions may be consider CT followup or MRI for further evaluation. IMPRESSION: A 61-year-old male with history of glioblastoma that was surgically resected 6 years ago with history of seizures, now presented with shortness of breath and mucus plug in the upper airways, one has to entertain aspiration pneumonia, even though chest x-ray is unremarkable. One also has to entertain finding of possible obstructive sleep apnea syndrome. I would suggest BiPAP therapy especially at bedtime and nasal cannula oxygen during the day. I would repeat chest x-ray in the a.m. to further evaluate the pulmonary findings to rule out aspiration pneumonia to promote pulmonary toiletry. Swallowing evaluation in process at present. I would obtain sputum for cultures and consider empiric antibiotic therapy if fever develops. Case discussed at length with the patient's family at bedside. We will continue to follow with you. Trevor Murrell MD
[2017-03-29] MEDS ORDERED: Barium Sulfate Susp 0.1% w/v, 0.1% w/w 450 mL Bottle PO ONE (08:59)
--- NOTE | 2017-03-29 10:30 | CARD ---
APPROVED REPORT EXAM: Two-dimensional and M-mode echocardiogram with Doppler and color Doppler. Other Information Quality : GoodRhythm : NSR INDICATION [place] 2D DIMENSIONS IVSd0.86 (0.7-1.1cm)LVDd4.15 (3.9-5.9cm) LVOT Diameter2.18 (1.8-2.4cm)PWd0.59 (0.7-1.1cm) IVSs1.73 (0.8-1.2cm)LVDs1.94 (2.5-4.0cm) FS (%) 53.2 %PWs1.46 (0.8-1.2cm) M-Mode DIMENSIONS Left Atrium (MM)3.24 (2.5-4.0cm)IVSd0.65 (0.7-1.1cm) Aortic Root2.88 (2.2-3.7cm)LVDd6.50 (4.0-5.6cm) Aortic Cusp Exc.1.71 (1.5-2.0cm)PWd0.71 (0.7-1.1cm) IVSs1.47 cmFS (%) 42 % LVDs3.76 (2.0-3.8cm)PWs1.50 cm Mitral Valve MV E Pnvovfpg83.6cm/sMV DECEL [id number] A Yqjyowhu04.7cm/s MV DXA51qmQ/A ratio0.8MVA (PHT)3.30cm2 TDI Lateral E' Peak V10.19cm/sMedial E' Peak V8.47cm/sE/Lateral E'5.2 E/Medial E'6.2 Pulmonary Valve PV Peak Ueqeonaw652.2cm/s LEFT VENTRICLE The left ventricle is normal size. There is normal left ventricular wall thickness. Left ventricle systolic function is normal. The Ejection Fraction is 60-65%. There is normal LV segmental wall motion. Transmitral Doppler flow pattern is Grade I-abnormal relaxation pattern. RIGHT VENTRICLE The right ventricle is normal size. There is normal right ventricular wall thickness. The right ventricular systolic function is normal. ATRIA The left atrium size is normal. The right atrium size is normal. AORTIC VALVE The aortic valve is normal in structure. No aortic regurgitation is present. There is no aortic valvular stenosis. MITRAL VALVE The mitral valve is normal in structure. There is no evidence of mitral valve prolapse. There is no mitral valve stenosis. There is no mitral valve regurgitation noted. TRICUSPID VALVE The tricuspid valve is normal in structure. There is no tricuspid valve regurgitation noted. PULMONIC VALVE The pulmonary valve is normal in structure. There is no pulmonic valvular regurgitation. GREAT VESSELS The aortic root is normal in size. Due to poor image quality, the IVC could not be assessed. PERICARDIAL EFFUSION The pericardium appears normal. <Conclusion> The left ventricle is normal size. There is normal left ventricular wall thickness. There is normal LV segmental wall motion. Left ventricle systolic function is normal. The Ejection Fraction is 60-65%. Transmitral Doppler flow pattern is Grade I-abnormal relaxation pattern.
[2017-03-29] MEDS: Cilostazol 50 mg Tab UD PO SCH (10:39)
[2017-03-29] MEDS: Aspirin-Dipyridamole 200-25 mg ER Cap PO SCH ×2 (10:40→18:23)
[2017-03-29] MEDS: Lacosamide 50 MG Tab PO SCH ×2 (10:53→23:54)
--- NOTE | 2017-03-29 11:32 | CP.PCM.PN ---
Subjective - Date & Time of Evaluation Date of Evaluation: 03/29/17 Time of Evaluation: 11:36 - Subjective Subjective: MORE AWAKE RESPONDS TO VERBAL COMMANDS ABLE TO SWALLOW PUREE DIET Objective - Vital Signs/Intake and Output Vital Signs (last 24 hours): Temp Pulse Resp BP Pulse Ox 98.4 F 74 18 156/82 H 96 03/29/17 08:04 03/29/17 10:41 03/29/17 08:04 03/29/17 10:41 03/29/17 08:04 Intake and Output: 03/29/17 03/29/17 06:59 18:59 Intake Total 490 Output Total 500 Balance -10 - Medications Medications: Current Medications Albuterol/Ipratropium (Duoneb 3 Mg/0.5 Mg (3 Ml) Ud) 3 ml INH RQ6 PRN PRN Reason: Shortness of Breath Last Admin: 03/29/17 07:51 Dose: 3 ml Atorvastatin Calcium (Lipitor) 40 mg PO DAILY COUNT INCLUDES THE [facility] Last Admin: 03/29/17 10:42 Dose: 40 mg Cilostazol (Pletal) 50 mg PO Q12 COUNT INCLUDES THE [facility] Last Admin: 03/29/17 10:39 Dose: 50 mg Clopidogrel Bisulfate (Plavix) 75 mg PO DAILY COUNT INCLUDES THE [facility] Last Admin: 03/29/17 10:41 Dose: 75 mg Dipyridamole/Aspirin (Aggrenox 25-200 Mg) 1 ea PO BID COUNT INCLUDES THE [facility] Last Admin: 03/29/17 10:40 Dose: 1 ea Ergocalciferol (Drisdol 50,000 Intl Units Cap) 1 cap PO QWK COUNT INCLUDES THE [facility] Escitalopram Oxalate (Lexapro) 10 mg PO DAILY COUNT INCLUDES THE [facility] Last Admin: 03/29/17 10:40 Dose: 10 mg Dextrose/Sodium Chloride (Dextrose 5%/0.9% Ns 1000 Ml) 1,000 mls @ 50 mls/hr IV .Q20H COUNT INCLUDES THE [facility] Stop: 03/30/17 07:42 Insulin Human Regular (Humulin R) 0 units SC BID LOUISE PRN Reason: Protocol Last Admin: 03/29/17 08:00 Dose: Not Given Labetalol HCl (Trandate) 100 mg PO Q12 COUNT INCLUDES THE [facility] Last Admin: 03/29/17 10:41 Dose: 100 mg Lacosamide (Vimpat) 150 mg PO Q12 COUNT INCLUDES THE [facility] Last Admin: 03/29/17 10:53 Dose: 150 mg Metformin HCl (Glucophage) 500 mg PO DAILY COUNT INCLUDES THE [facility] Last Admin: 03/29/17 10:40 Dose: 500 mg Sitagliptin Phosphate (Januvia) 100 mg PO DAILY COUNT INCLUDES THE [facility] Last Admin: 03/29/17 10:38 Dose: 100 mg Tamsulosin HCl (Flomax) 0.4 mg PO DAILY COUNT INCLUDES THE [facility] Last Admin: 03/29/17 10:42 Dose: 0.4 mg - Labs Labs: 03/26/17 22:10 03/26/17 22:10 - Constitutional Appears: No Acute Distress - Head Exam Head Exam: ATRAUMATIC, NORMAL INSPECTION, NORMOCEPHALIC - Eye Exam Eye Exam: EOMI, Normal appearance, PERRL Pupil Exam: NORMAL ACCOMODATION, PERRL - ENT Exam ENT Exam: Mucous Membranes Moist, Normal Exam - Neck Exam Neck Exam: Full ROM, Normal Inspection. absent: Lymphadenopathy - Respiratory Exam Respiratory Exam: Clear to Ausculation Bilateral, NORMAL BREATHING PATTERN - Cardiovascular Exam Cardiovascular Exam: REGULAR RHYTHM, +S1, +S2. absent: Murmur - GI/Abdominal Exam GI & Abdominal Exam: Soft, Normal Bowel Sounds. absent: Tenderness - Rectal Exam Rectal Exam: NORMAL INSPECTION - Extremities Exam Extremities Exam: Full ROM, Normal Capillary Refill, Normal Inspection. absent : Joint Swelling, Pedal Edema Additional comments: L ARM AND LEG WEAKNESS PERSIST - Back Exam Back Exam: NORMAL INSPECTION - Neurological Exam Neurological Exam: Alert, Awake, CN II-XII Intact - Skin Skin Exam: Dry, Intact, Normal Color, Warm Assessment and Plan - Assessment and Plan (Free Text) Assessment: CVA WITH DYSPHAGIA Plan: CONTINUE RX ORDERED
--- NOTE | 2017-03-29 12:03 | PN ---
FOLLOWUP DATE: SUBJECTIVE: The patient still has dense left hemiplegia and verbal aphasia. He does not appear to be in respiratory distress. He follows command by allowing for good it senior analyst on the right hand. PHYSICAL EXAMINATION: VITAL SIGNS: Blood pressure 156/82, heart rate 74, temperature 98.4, respirations 18. HEENT: Loss of left nasolabial fold. CHEST: Clear. HEART: S1 and S2 regular. EXTREMITIES: No edema. LABORATORY DATA: Today's blood sugar is 88. ASSESSMENT: 1. Acute cerebrovascular accident. Consider ischemic left pontine and right internal capsule infarcts. 2. History of left temporal glioblastoma, removed 6 years ago. 3. Hypertension and diabetes mellitus. RECOMMENDATIONS: Continue with current Plavix 75 mg once a day, Pletal 50 mg twice a day, Lipitor 40 mg once a day, Aggrenox 25/200 mg twice a day. The patient underwent barium swallow study and I have followed the results. Raúl Bryan MD
--- NOTE | 2017-03-29 12:52 | RAD ---
PROCEDURE: Modified barium swallow study. HISTORY: recommended by speech therapist COMPARISON: None available. TECHNIQUE: Under fluoroscopic guidance, barium meals of various consistency were administered to the patient by the speech pathologist. FINDINGS: Laryngeal penetration with honey thick liquids was noted with silent aspiration identified in 1 trial. Delayed swallow initiation was evident. No penetration was seen with chin-tuck. IMPRESSION: Laryngeal penetration with honey thick liquids with 1 episode of silent aspiration. Please refer to the detailed report and recommendations of the speech pathologist.
--- NOTE | 2017-03-29 15:54 | PN ---
DATE: NEUROLOGICAL PROBLEM: Brainstem infarct, left hemiparesis. PHYSICAL EXAMINATION: VITAL SIGNS: Blood pressure 165/83, mean arterial pressure of 110, respiratory rate 18, temperature 97.9, pulse rate 82. NEUROLOGIC: The patient is examined in the presence of the family members including his son. The patient is awake, good visual contact. Keep follows 1-step command. His weakness on his left arm is somewhat improved to 4/5. Still he has left leg weakness about 2/5. Plantars are upgoing on his left side. LABORATORY DATA: His electroencephalogram had been reviewed. No acute paroxysmal activities or focal slowing noted. RECOMMENDATION: The patient is tolerating Aggrenox. The patient can continue Aggrenox with Plavix. The patient failed with cilostazol at this point. He does not need cilostazol at present. Because of the polypharmacy, I suggested to cut down the all medications which are unwanted for him at present. The patient is also scheduled to have a transesophageal echocardiogram which probably will be done on Saturday. DVT prophylaxis and the patient should get bedside physical therapy. The patient is a very good candidate for acute rehabilitation. Continue with the present management. The patient will be followed closely while he is in the hospital. Vikas Quezada MD [email or web address]
[2017-03-30] MEDS ORDERED: Labetalol 5 mg/ml Inj 20ML IVP STA (01:10)
[2017-03-30 08:09] LABS: BASO % 0.5 % (0.0-2.0); EOS # 0.1 K/uL (0.0-0.7); HEMATOCRIT 39.1 % (35.0-51.0); LYMPH # 1.6 K/uL (1.0-4.3); LYMPH % 22.7 % (20.0-40.0); MEAN CELL VOLUME 82.3 fl (80.0-94.0); MEAN CORPUSCULAR HEMOGLOBIN 27.7 pg (27.0-31.0); MEAN CORPUSCULAR HGB CONC 33.7 g/dL (33.0-37.0); MEAN PLATELET VOLUME 7.2 fl (7.2-11.7); MONO # 0.7 K/uL (0.0-0.8); MONO % 10.4 % (0.0-10.0); NEUT # 4.6 K/uL (1.8-7.0); NEUT % 64.4 % (50.0-75.0); RED CELL DISTRIBUTION WIDTH 15.8 % (11.5-14.5); WHITE BLOOD COUNT 7.2 K/uL (4.8-10.8)
[2017-03-30] MEDS: Lacosamide 50 MG Tab PO SCH ×2 (08:51→22:20)
[2017-03-30] MEDS: Aspirin-Dipyridamole 200-25 mg ER Cap PO SCH ×2 (08:52→18:13)
[2017-03-30] MEDS: Insulin Regular 100 units/ml SC SCH ×2 (08:53→18:12)
[2017-03-30 08:58] LABS: ALB/GLOB RATIO 1.2 (1.0-2.1); ALKALINE PHOSPHATASE 75 U/L (38-126); ALT/SGPT 37 U/L (21-72); AST/SGOT 40 U/L (17-59); BILIRUBIN,TOTAL 0.5 mg/dl (0.2-1.3); BLOOD UREA NITROGEN 16 mg/dl (9-20); CALCIUM 8.9 mg/dL (8.4-10.2); CARBON DIOXIDE 26 mmol/L (22-30); CHLORIDE 104 mmol/L (98-107); GFR AFRICAN-AMERICAN > 60; GLUCOSE,RANDOM 116 mg/dL (75-110); POTASSIUM 3.9 MMOL/L (3.6-5.0); SODIUM 140 mmol/l (132-148)
[2017-03-30] MEDS ORDERED: Sodium Chloride 0.9% 1,000 ML IV SCH (14:45)
--- NOTE | 2017-03-30 15:39 | CT ---
PROCEDURE: CT HEAD WITHOUT CONTRAST. HISTORY: New Stroke Vs. Bleed COMPARISON: 03/26/2017 TECHNIQUE: Axial computed tomography images were obtained through the head/brain without intravenous contrast. Radiation dose: Total exam DLP = mGy-cm. This CT exam was performed using one or more of the following dose reduction techniques: Automated exposure control, adjustment of the mA and/or kV according to patient size, and/or use of iterative reconstruction technique. FINDINGS: HEMORRHAGE: No intracranial hemorrhage. BRAIN: No mass effect or edema. Extensive periventricular white matter ischemic disease with old left temporal infarct. Re- demonstration of focal hypodensity in the left indu compatible with ischemia. No acute hemorrhage. VENTRICLES: Unremarkable. No hydrocephalus. CALVARIUM: Unremarkable. PARANASAL SINUSES: Unremarkable as visualized. No significant inflammatory changes. MASTOID AIR CELLS: Unremarkable as visualized. No inflammatory changes. OTHER FINDINGS: None. IMPRESSION: Extensive periventricular white matter ischemic disease with old left temporal infarct. Re- demonstration of focal hypodensity in the left indu compatible with ischemia. No acute hemorrhage. No significant interval change.
--- NOTE | 2017-03-30 21:53 | PN ---
CARDIOLOGY FOLLOWUP DATE: SUBJECTIVE: The patient became mildly hypotensive and then lethargic. No reported arrhythmia. PHYSICAL EXAMINATION: VITAL SIGNS: Blood pressure 119/73, heart rate 75, temperature 97.9, and respirations 20. HEENT: Loss of left nasolabial fold. CHEST: Clear. HEART: S1 and S2 regular. NEUROLOGIC: Dense left-sided hemiplegia. LABORATORY DATA: Today's SMA-7 is within normal limits, except for glucose of 116, and today's hemoglobin and hematocrit, white count, and platelet count are within normal limits. Repeat head CT scan around 02:30 p.m. revealed extensive periventricular white matter ischemic disease, also old left temporal infarct, demonstration of focal hypodensity in the left indu compatible with ischemia, no acute hemorrhage, and no significant interval change. ASSESSMENT: 1. Acute cerebrovascular disease with residual left hemiplegia and expressive aphasia. 2. History of surgical removal of left temporal glioblastoma six years ago. 3. Mild hypotension, most likely iatrogenic. RECOMMENDATIONS: The case was discussed with Dr. Holguin. The patient will be maintained on Aggrenox and Plavix. Pletal was discontinued. The patient will be also maintained on Lipitor at 40 mg once a day. A repeat CAT scan will be done tonight to rule out any hemorrhagic changes and the recent infarct zone. Raúl Bryan MD
[2017-03-30] MEDS: Sodium Chloride 0.9% 1,000 ML IV SCH (22:21)
[2017-03-31] MEDS: Insulin Regular 100 units/ml SC SCH ×2 (09:27→19:47)
[2017-03-31] MEDS: Aspirin-Dipyridamole 200-25 mg ER Cap PO SCH ×2 (09:30→16:40)
[2017-03-31] MEDS: Lacosamide 50 MG Tab PO SCH ×2 (09:30→21:41)
[2017-03-31] MEDS: Sodium Chloride 0.9% 1,000 ML IV SCH (09:37)
--- NOTE | 2017-03-31 13:11 | CP.PCM.PN ---
Subjective - Date & Time of Evaluation Date of Evaluation: 03/31/17 Time of Evaluation: 13:12 - Subjective Subjective: SLEEPING WITHOUT BIPAP NO APPARENT DISTRESS ABLE TO EAT TODAY Objective - Vital Signs/Intake and Output Vital Signs (last 24 hours): Temp Pulse Resp BP Pulse Ox 97.7 F 77 20 140/71 95 03/31/17 12:00 03/31/17 12:00 03/31/17 12:00 03/31/17 12:00 03/31/17 12:00 Intake and Output: 03/31/17 03/31/17 06:59 18:59 Intake Total 960 Output Total 350 Balance 610 - Medications Medications: Current Medications Albuterol/Ipratropium (Duoneb 3 Mg/0.5 Mg (3 Ml) Ud) 3 ml INH RQ6 PRN PRN Reason: Shortness of Breath Last Admin: 03/29/17 07:51 Dose: 3 ml Atorvastatin Calcium (Lipitor) 40 mg PO DAILY [facility] [place] Last Admin: 03/31/17 09:31 Dose: 40 mg Clopidogrel Bisulfate (Plavix) 75 mg PO DAILY [facility] Last Admin: 03/31/17 09:31 Dose: 75 mg Dipyridamole/Aspirin (Aggrenox 25-200 Mg) 1 ea PO BID [facility] [place] Last Admin: 03/31/17 09:30 Dose: 1 ea Ergocalciferol (Drisdol 50,000 Intl Units Cap) 1 cap PO QWK [facility] [place] Escitalopram Oxalate (Lexapro) 10 mg PO DAILY [facility] [place] Last Admin: 03/31/17 09:31 Dose: 10 mg Sodium Chloride (Sodium Chloride 0.9%) 1,000 mls @ 80 mls/hr IV .[id number] [facility] Stop: 03/31/17 14:38 Last Admin: 03/31/17 09:37 Dose: 80 mls/hr Insulin Human Regular (Humulin R) 0 units SC BID [facility] PRN Reason: Protocol Last Admin: 03/31/17 09:27 Dose: Not Given Labetalol HCl (Trandate) 50 mg PO Q8 [facility] Last Admin: 03/31/17 09:27 Dose: Not Given Lacosamide (Vimpat) 150 mg PO Q12 [facility] [place] Last Admin: 03/31/17 09:30 Dose: 150 mg Metformin HCl (Glucophage) 500 mg PO DAILY [facility] [place] Last Admin: 03/31/17 09:31 Dose: 500 mg Sitagliptin Phosphate (Januvia) 25 mg PO DAILY [facility] - Labs Labs: 03/30/17 06:30 03/30/17 06:30 - Constitutional Appears: No Acute Distress - Head Exam Head Exam: ATRAUMATIC, NORMAL INSPECTION, NORMOCEPHALIC - Eye Exam Eye Exam: EOMI, Normal appearance, PERRL Pupil Exam: NORMAL ACCOMODATION, PERRL - ENT Exam ENT Exam: Mucous Membranes Moist, Normal Exam - Neck Exam Neck Exam: Full ROM, Normal Inspection. absent: Lymphadenopathy - Respiratory Exam Respiratory Exam: Clear to Ausculation Bilateral, NORMAL BREATHING PATTERN - Cardiovascular Exam Cardiovascular Exam: REGULAR RHYTHM, +S1, +S2. absent: Murmur - GI/Abdominal Exam GI & Abdominal Exam: Soft, Normal Bowel Sounds. absent: Tenderness - Rectal Exam Rectal Exam: NORMAL INSPECTION - Extremities Exam Extremities Exam: Full ROM, Normal Capillary Refill, Normal Inspection. absent : Joint Swelling, Pedal Edema - Back Exam Back Exam: NORMAL INSPECTION - Skin Skin Exam: Dry, Intact, Normal Color, Warm Assessment and Plan - Assessment and Plan (Free Text) Plan: WILL CHANGE BIPAP TO BEDTIME
--- NOTE | 2017-03-31 20:05 | PN ---
DATE: SUBJECTIVE: The patient's condition of alertness has improved today. The patient has left hemiplegia with expressive aphasia; however, he can sit, follow commands, and he was able to eat soft diet. No reported arrhythmia. PHYSICAL EXAMINATION: VITAL SIGNS: Blood pressure 140/71, heart rate 77, temperature 97.7, respirations 20. HEENT: Loss of left nasolabial fold. CHEST: Clear. HEART: Sounds are regular. EXTREMITIES: No edema. LABORATORY DATA: Today's blood sugar is 106 and 116. ASSESSMENT: 1. Acute cerebrovascular accident with left hemiplegia and expressive aphasia. 2. Hypertension and diabetes mellitus. 3. History of removal of left temporal glioblastoma. RECOMMENDATIONS: Continue current Aggrenox 1 tablet twice a day, metformin 500 mg daily, Januvia 25 mg once a day, Plavix 75 mg once a day, Lipitor 40 mg once a day, and labetalol 50 mg q. 8 hours. Raúl Bryan MD
--- NOTE | 2017-04-01 00:14 | PN ---
DATE: 03/31/2017 SUBJECTIVE: The patient is seen today on 03/31/2017. He is able to swallow today better than the last 2 days. PHYSICAL EXAMINATION: GENERAL: The patient is awake and follows commands. VITAL SIGNS: Blood pressure 168/91, temperature 97.8, respiratory rate 20, and pulse 83. HEENT: Pupils equal and reactive to light. Normal-appearing mucosa of the conjunctivae, oropharynx, and nasal membrane mucosa. NECK: Supple. No JVD. No carotid bruit. No lymph nodes. No thyromegaly. CHEST AND LUNGS: Bilateral symmetrical expansion. Good air exchange. No rales, no rhonchi. CARDIOVASCULAR: PMI not localized. S1 and S2. No additional sounds. ABDOMEN: Normoactive bowel sounds. No tenderness. No organomegaly. No masses. EXTREMITIES: No cyanosis. No clubbing. No edema. CENTRAL NERVOUS SYSTEM: Alert, awake, oriented x3. There is left-sided upper motor neuron facial as well as left upper and lower extremity weakness. ASSESSMENT: 1. Cerebrovascular accident with left-sided hemiplegia and left facial palsy as well as difficulty swallowing and speech. 2. Hypertension. 3. Type 2 diabetes mellitus. PLAN: 1. We will continue current management including the Aggrenox and Plavix. 2. We will manage hypertension to keep systolic blood pressure around 140 to 150. 3. Physical therapy and discharge plan to acute rehabilitation. Les Holguin MD
[2017-04-01 08:09] VITALS: RESP 20
--- NOTE | 2017-04-01 08:35 | PN ---
DATE: 03/30/2017 SUBJECTIVE: The patient is seen today, 03/30/2017. He is not in any cardiopulmonary distress. PHYSICAL EXAMINATION: VITAL SIGNS: Blood pressure 126/68, temperature 97.7, respiratory rate 20, and pulse 82. HEENT: Pupils equal, reactive to light. Normal-appearing mucosa of the conjunctivae, oropharyngeal and nasal membrane mucosa. NECK: Supple. No JVD. No carotid bruit. No lymph node. No thyromegaly. CHEST AND LUNGS: Bilateral symmetrical expansion. Good air exchange. No rales, no rhonchi. CARDIOVASCULAR SYSTEM: PMI not localized. S1 and S2. No additional sounds. ABDOMEN: Normoactive bowel sounds. No tenderness. No organomegaly. No masses. EXTREMITIES: No cyanosis, no clubbing. No edema. CENTRAL NERVOUS SYSTEMS: Awake and oriented x2. Patient has slurred speech as well as left-sided hemiparesis. ASSESSMENT: 1. Cerebrovascular accidents with above neurological deficits. 2. Hypertension. 3. Type 2 diabetes mellitus. 4. Possible sleep apnea. PLAN: We will give patient BiPAP at night and give the patient today on IV bolus as he was more lethargic during the course of the day when his systolic blood pressure was 110/71. Patient was given enalapril as well as labetalol over social welfare research worker due to his increased blood pressure. We will continue the labetalol with parameters to hold his systolic blood pressure below 140. Communicated all these information with the nurse on duty. Les Holguin MD
--- NOTE | 2017-04-01 08:37 | PN ---
DATE: 03/29/2017 SUBJECTIVE: The patient was seen on 03/29/2017. He was more awake and alert, still has difficulty swallowing as well as difficulty to speak and left-sided hemiparesis. PHYSICAL EXAMINATION: VITAL SIGNS: Blood pressure was 156/82, temperature 98.4, respiratory rate 20 and pulse 74. HEENT: Pupils equal and reactive to light. Normal-appearing mucosa of the conjunctivae, oropharyngeal and nasal membrane mucosa. NECK: Supple. No JVD. No carotid bruit. No lymph node. No thyromegaly. CHEST AND LUNGS: Bilateral symmetrical expansion. Good air exchange. No rales, no rhonchi. CARDIOVASCULAR: PMI not localized. S1 and S2. No additional sounds. ABDOMEN: Normoactive bowel sounds. No tenderness. No organomegaly. No masses. EXTREMITIES: No cyanosis, no clubbing, no edema. CENTRAL NERVOUS SYSTEM: The patient is awake and he is oriented to person and place, but he has decreased speech output as well as left-sided hemiparesis. Patient had a swallow evaluation that allowed patient to eat pureed diet with thickened liquid. ASSESSMENT: Cerebrovascular accident with left-sided hemiparesis, difficulty speaking and difficulty swallowing. Hypertension, type 2 diabetes mellitus, history of glioblastoma status post brain surgery in 2010. PLAN: Continue current medications. Maintain systolic blood pressure around 140 to 150. Physical therapy and follow recommendations of the physical medicine and rehabilitation. Les Holguin MD
[2017-04-01] MEDS: Aspirin-Dipyridamole 200-25 mg ER Cap PO SCH ×2 (08:45→17:45)
[2017-04-01] MEDS: Lacosamide 50 MG Tab PO SCH (08:47)
[2017-04-01] MEDS: Insulin Regular 100 units/ml SC SCH ×2 (09:00→18:02)
--- NOTE | 2017-04-01 09:10 | EEG ---
DATE: 03/27/2017 This is a 16-channel electroencephalogram of aphasic adult. During the study, photic stimulation was performed, hyperventilation was not performed. The resting electroencephalogram consists of 30 to 40 microvolt diffuse 4 to 5 Hz delta mixed with theta activities noted in bilateral cortical leads. This low activity is continuously noted. Some frontal muscle artifact contaminated the background rhythm. There is diffuse delta activity seen which is consistent with drowsy. The photic stimulation did not evoke driving response noted at 2 to 20 Hz. IMPRESSION: This is abnormal electroencephalogram because of persistent slowing throughout the record suggestive of bilateral cerebral dysfunction. This is probably secondary to metabolic vascular degenerative process. During the study, neither electroencephalographic paroxysmal activities nor focal slowing noted. Vikas Quezada MD
--- NOTE | 2017-04-01 10:50 | CP.PCM.CON ---
History of Present Illness - History of Present Illness History of Present Illness: Dr Weiss PMR consultation on Margo Martinez, born 1955 who has been admitted to [facility] with acute onset of left HP secondary to a right CVA. He had been independent [employer]. He is right hand dominant. MRI showed acute right Pontine infarct Past Patient History - Past Medical History & Family History Past Medical History?: Yes - Past Social History Alcohol: None - CARDIAC Hx Hypertension: Yes - PULMONARY Hx Respiratory Disorders: No - NEUROLOGICAL Hx Seizures: Yes - HEENT Hx HEENT Problems: No - RENAL Hx Chronic Kidney Disease: No - ENDOCRINE/METABOLIC Hx Endocrine Disorders: Yes Hx Diabetes Mellitus Type 2: Yes - HEMATOLOGICAL/ONCOLOGICAL Hx Blood Disorders: No Hx AIDS: No Hx Human Immunodeficiency Virus (HIV): No - INTEGUMENTARY Hx Dermatological Problems: No - MUSCULOSKELETAL/RHEUMATOLOGICAL Hx Musculoskeletal Disorders: Yes Hx Falls: Yes - GASTROINTESTINAL Hx Gastrointestinal Disorders: No - GENITOURINARY/GYNECOLOGICAL Hx Genitourinary Disorders: No - PSYCHIATRIC Hx Psychophysiologic Disorder: No Hx Substance Use: No - SURGICAL HISTORY Hx Surgeries: Yes Other/Comment: Brain surgery - ANESTHESIA Hx Anesthesia: Yes Hx Anesthesia Reactions: No Meds Home Medications: Home Medication List Medication Instructions Recorded Confirmed Type Albuterol/Ipratropium [Duoneb 3 3 ml INH RQ6 PRN neb 04/01/17 Rx mg/0.5 mg (3 ml) UD] SITagliptin [Januvia] 25 mg PO DAILY tab 04/01/17 Rx Allergies/Adverse Reactions: Allergies Allergy/AdvReac Type Severity Reaction Status Date / Time No Known Allergies Allergy Verified 03/30/15 08:43 - Medications Medications: Current Medications Albuterol/Ipratropium (Duoneb 3 Mg/0.5 Mg (3 Ml) Ud) 3 ml INH RQ6 PRN PRN Reason: Shortness of Breath Last Admin: 03/29/17 07:51 Dose: 3 ml Atorvastatin Calcium (Lipitor) 40 mg PO DAILY [facility] Last Admin: 04/01/17 08:45 Dose: 40 mg Clopidogrel Bisulfate (Plavix) 75 mg PO DAILY [facility] Last Admin: 04/01/17 08:45 Dose: 75 mg Dipyridamole/Aspirin (Aggrenox 25-200 Mg) 1 ea PO BID [facility] Last Admin: 04/01/17 08:45 Dose: 1 ea Ergocalciferol (Drisdol 50,000 Intl Units Cap) 1 cap PO QWK [facility] Escitalopram Oxalate (Lexapro) 10 mg PO DAILY [facility] Last Admin: 04/01/17 08:45 Dose: 10 mg Insulin Human Regular (Humulin R) 0 units SC BID [facility] PRN Reason: Protocol Last Admin: 03/31/17 19:47 Dose: Not Given Labetalol HCl (Trandate) 50 mg PO Q8H [facility] Last Admin: 04/01/17 08:45 Dose: 50 mg Lacosamide (Vimpat) 150 mg PO Q12 [facility] Last Admin: 04/01/17 08:47 Dose: 150 mg Metformin HCl (Glucophage) 500 mg PO DAILY [facility] Last Admin: 04/01/17 08:45 Dose: 500 mg Sitagliptin Phosphate (Januvia) 25 mg PO DAILY [facility] Last Admin: 04/01/17 08:45 Dose: 25 mg Physical Exam - Constitutional Appears: Non-toxic - Head Exam Head Exam: ATRAUMATIC, NORMAL INSPECTION, NORMOCEPHALIC - ENT Exam ENT Exam: Mucous Membranes Moist - Respiratory Exam Respiratory Exam: NORMAL BREATHING PATTERN - Cardiovascular Exam Cardiovascular Exam: REGULAR RHYTHM - GI/Abdominal Exam GI & Abdominal Exam: absent: Firm, Guarding - Extremities Exam Extremities exam: Negative for: calf tenderness, pedal edema - Neurological Exam Neurological exam: Alert Results - Vital Signs Recent Vital Signs: Last Vital Signs Temp 98.7 F 04/01/17 08:00 Pulse 74 04/01/17 08:45 Resp 20 04/01/17 08:00 BP 153/85 H 04/01/17 08:45 Pulse Ox 96 04/01/17 08:00 - Labs Result Diagrams: 03/30/17 06:30 03/30/17 06:30 Labs: Laboratory Results - last 24 hr 03/31/17 03/31/17 04/01/17 10:53 17:10 05:39 POC Glucose (mg/dL) 116 H 133 H 126 H Assessment & Plan - Assessment and Plan (Free Text) Assessment: Patient with left HP 0/5 left UE and 1+/5 proximal left LE strength He is able to look to the left side and there is not blatant left neglect but as he becomes more active this will be further evaluated He is able to follow commands (simple) He has left sided facial weakness as well but can puff up cheeks albeit asymmetrically Plan: He will need acute inpatient rehab and is an ideal candidate He may require REGULO as well and this will be determined as he progresses in therapies He has 15 stairs to get to his room but a basement room is available as well which is only 5 steps
--- NOTE | 2017-04-01 12:52 | CON ---
DATE: 03/27/2017 CHIEF COMPLAINT: Urinary retention. HISTORY OF PRESENT ILLNESS: The patient was admitted with neurological issues and found to have a 600 mL postvoid residual. He has a history of glioblastoma and he is being worked up for acute cerebral event by Neurology. The patient was having difficulty urination with straight cath and found to have over 600 mL postvoid residual. Subsequently, Michaels catheter was inserted and a similar amount of urine was obtained. PHYSICAL EXAMINATION: GENERAL: The patient is awake, alert, but appears not fully oriented. HEENT: Within normal limits. NECK: Supple. There are no bruits. No evidence of masses. CHEST: Clear bilaterally. There are no rales or rhonchi. HEART: Normal sinus rhythm. ABDOMEN: There are no masses or organomegaly. Soft, nontender. Bladder is not palpably distended. LUNGS: Clear bilaterally. There are no rales or rhonchi. EXTREMITIES: Normal. RECTAL: Examination shows a 2 to 3+ prostate. PLAN: Suggest the following; the patient should be started on Flomax and give PVR checked again. If the PVR is over 250 mL, suggest leaving the Michaels catheter and once the patient is stabilized, he may be referred for outpatient urological evaluation. Gael Sen MD
--- NOTE | 2017-04-01 13:02 | PQF GENQUE ---
This form is a permanent part of the medical record 04/01/17 Dr. Murrell, Would you please clarify if Aspiration Pneumonia is ruled in or ruled out after workup. Admitted with difficulty breathing, weakness, inability to walk and difficulty in speech. MRI Brain + acute infarct. + difficulty swallowing and difficulty with speech. Pulmonary consult: presents with sob and mucus plug in the upper airways, one has to ruled entertain aspiration pneumonia even though cxr is unremarkable. Consider antibiotic therapy if fever develops. Clarification of your documentation is requested to better reflect the severity of illness and intensity of treatment of your patient. Indicators present [] Specify: [] [] Specify: [] [] Specify: [] [] Specify: [] Location in the medical record that reflects the above clinical findings: [] Treatment Provided: [] PHYSICIAN'S RESPONSE Based on your medical judgment of the clinical indicators outlined above please clarify the following: [] Practitioner response [] If unable to determine, please check the box, sign and date. Present On Admission (POA) Indicator: [] Present at the time of admission [] Not present at the time of admission [] Clinically Undetermined In responding to this query, please exercise your independent professional judgment. The fact that a question is asked does not imply that any particular answer is desired or expected. Thank you for your clarification on this documentation. If you have any questions please call:extension [phone] * Thank you, Angelica Akhtar RN [facility]
--- NOTE | 2017-04-01 13:41 | PN ---
DATE: SUBJECTIVE: The patient is currently sleepy, the family at the bedside. According to family members, the patient started to verbalize a few words today. He was able to swallow without choking. He still has significant left-sided weakness. PHYSICAL EXAMINATION: VITAL SIGNS: Blood pressure 153/85, heart rate 74, temperature 98.7, respirations 20. LABORATORY DATA: Today's blood sugar is 126. ASSESSMENT: 1. Acute cerebrovascular accident with residual expressive aphasia and left hemiplegia. 2. Diabetes mellitus. 3. History of left temporal glioblastoma, removed 6 years ago. RECOMMENDATIONS: Continue current Aggrenox, Lipitor, Plavix, and labetalol. Plan is to perform transesophageal echo. We will await until a definite decision is made by neurologist. Case was discussed with Dr. Holguin. Raúl Bryan MD
[2017-04-01 16:13] VITALS: BP 139/81; PULSE 75; TEMP 98.3; O2SAT 100
--- NOTE | 2017-04-02 00:14 | DS ---
REASON FOR ADMISSION: This is a 61-year-old Bangladeshi male with history of glioblastoma, status post craniotomy with excision of brain tumor in 2010, status post radiation and chemotherapy, was admitted for acute CVA of the right indu. COURSE OF HOSPITALIZATION: Patient was admitted to the telemetry floor and he had Neurology consult with Dr. Quezada and Cardiology consult with Dr. Bryan. Patient was started on Aggrenox in addition to Plavix. Patient was started also on physical therapy. Patient states, telemetry was uneventful with slight improvement of swallowing and speech, but still has left-sided hemiplegia. The patient was discharged to acute rehabilitation floor after he had a consultation by Dr. Jack Weiss. FINAL DIAGNOSES: 1. Acute cerebrovascular accident, right indu. 2. Hypertension. 3. Type 2 diabetes mellitus. 4. History of glioblastoma, status post excision in 2010. [facility] MD Ezio
== END 2017-04-01 18:50 | DRG 64 ==
LOC: H.ER 20:55 → H.ERHOLD 03-27 00:36 → H.TEL 03-27 02:00
PROVIDERS: ADMIT Internal Medicine; ATTEND Internal Medicine
DX: I63.9 Cerebral infarction, unspecified (principal); J69.0 Pneumonitis due to inhalation of food and vomit; C71.2 Malignant neoplasm of temporal lobe; R56.9 Unspecified convulsions; I95.9 Hypotension, unspecified; G81.94 Hemiplegia, unspecified affecting left nondominant side; R13.10 Dysphagia, unspecified; E11.9 Type 2 diabetes mellitus without complications; E78.5 Hyperlipidemia, unspecified; G51.0 Bell's palsy; I10 Essential (primary) hypertension; I67.89 Other cerebrovascular disease; I69.320 Aphasia following cerebral infarction; J44.9 Chronic obstructive pulmonary disease, unspecified; I69.391 Dysphagia following cerebral infarction; R33.9 Retention of urine, unspecified; Z91.81 History of falling; Z79.02 Long term (current) use of antithrombotics/antiplatelets; Z79.84 Long term (current) use of oral hypoglycemic drugs; Z79.899 Other long term (current) drug therapy; Z85.841 Personal history of malignant neoplasm of brain; Z92.21 Personal history of antineoplastic chemotherapy; Z92.3 Personal history of irradiation; R26.2 Difficulty in walking, not elsewhere classified; R41.82 Altered mental status, unspecified

== ENCOUNTER 2017-04-01 15:45 | Inpatient (IN) | payer MEDICARE ==
[2017-04-01] MEDS ORDERED: Albuterol-Ipratrop 3 mg / 0.5 (3 ml) UD INH PRN (20:33)
[2017-04-01] MEDS ORDERED: Ergocalciferol 50,000 Intl Units Cap PO SCH (20:45)
[2017-04-01] MEDS: Aspirin-Dipyridamole 200-25 mg ER Cap PO SCH (21:00)
[2017-04-01] MEDS: Sodium Chloride 0.9% 1,000 ML IV SCH (22:11)
[2017-04-01] MEDS: Insulin Regular 100 units/ml SC SCH (22:13)
[2017-04-01] MEDS: Lacosamide 50 MG Tab PO SCH (22:57)
[2017-04-02] MEDS: Insulin Regular 100 units/ml SC SCH ×2 (06:00→21:13)
[2017-04-02] MEDS: Aspirin-Dipyridamole 200-25 mg ER Cap PO SCH ×2 (08:41→21:11)
[2017-04-02] MEDS: Lacosamide 50 MG Tab PO SCH ×2 (08:45→21:02)
--- NOTE | 2017-04-02 13:02 | CP.PCM.CON ---
History of Present Illness - History of Present Illness History of Present Illness: Dr Weiss PMR consultation on Margo Martinez, born 1955, who has been admitted to [facility] acute rehab following a right pontine CVA with left hemiplegia. He has increased lethargy at times. Prior he was independent Review of Systems - Review of Systems Systems not reviewed;Unavailable: Altered Mental Status Past Patient History - Past Medical History & Family History Past Medical History?: Yes - Past Social History Smoking Status: Never Smoked Alcohol: None Drugs: Denies Home Situation {Lives}: With Family - CARDIAC Hx Cardiac Disorders: Yes Hx Hypercholesterolemia: Yes Hx Hypertension: Yes Other/Comment: Atherosclerosis,Dyslipidemia - PULMONARY Hx Respiratory Disorders: No - NEUROLOGICAL HX Cerebrovascular Accident: Yes (past CVA's) Hx Seizures: Yes - HEENT Hx HEENT Problems: Yes Hx Difficulty Chewing: Yes Other/Comment: uses eyeglasses for reading and distance - RENAL Hx Chronic Kidney Disease: No - ENDOCRINE/METABOLIC Hx Endocrine Disorders: Yes Hx Diabetes Mellitus Type 2: Yes - HEMATOLOGICAL/ONCOLOGICAL Hx Blood Disorders: Yes Hx AIDS: No Hx Blood Transfusions: Yes Hx Human Immunodeficiency Virus (HIV): No - INTEGUMENTARY Hx Dermatological Problems: No - MUSCULOSKELETAL/RHEUMATOLOGICAL Hx Falls: Yes (fall off couch on 03/26/2017) - GASTROINTESTINAL Hx Gastrointestinal Disorders: No - GENITOURINARY/GYNECOLOGICAL Hx Genitourinary Disorders: Yes Other/Comment: 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 - PSYCHIATRIC Hx Psychophysiologic Disorder: No Hx Substance Use: No - SURGICAL HISTORY Hx Surgeries: Yes Other/Comment: s/p Craniotomy,Radiation and Chemotherapy=09/2010-Glioblastoma - ANESTHESIA Hx Anesthesia: Yes Hx Anesthesia Reactions: No Hx Malignant Hyperthermia: No Meds Allergies/Adverse Reactions: Allergies Allergy/AdvReac Type Severity Reaction Status Date / Time No Known Allergies Allergy Verified 04/01/17 20:07 - Medications Medications: Current Medications Albuterol/Ipratropium (Duoneb 3 Mg/0.5 Mg (3 Ml) Ud) 3 ml INH RQ6 PRN PRN Reason: Shortness of Breath Atorvastatin Calcium (Lipitor) 40 mg PO HS [facility] Clopidogrel Bisulfate (Plavix) 75 mg PO DAILY [facility] Last Admin: 04/02/17 08:41 Dose: 75 mg Dipyridamole/Aspirin (Aggrenox 25-200 Mg) 1 ea PO Q12 [facility] Last Admin: 04/02/17 08:41 Dose: 1 ea Ergocalciferol (Drisdol 50,000 Intl Units Cap) 1 cap PO TUE [facility] Escitalopram Oxalate (Lexapro) 10 mg PO DAILY [facility] Last Admin: 04/02/17 08:41 Dose: 10 mg Sodium Chloride (Sodium Chloride 0.9%) 1,000 mls @ 70 mls/hr IV .[id number] [facility] Stop: 04/02/17 20:38 Last Admin: 04/01/17 22:11 Dose: 70 mls/hr Insulin Human Regular (Humulin R) 0 units SC 0600,2100 [facility] PRN Reason: Protocol Last Admin: 04/02/17 06:00 Dose: Not Given Labetalol HCl (Trandate) 50 mg PO Q8@0200,1000,1800 [facility] Last Admin: 04/02/17 10:40 Dose: 50 mg Lacosamide (Vimpat) 150 mg PO Q12 [facility] Last Admin: 04/02/17 08:45 Dose: 150 mg Metformin HCl (Glucophage) 500 mg PO DAILYWM [facility] Last Admin: 04/02/17 08:41 Dose: 500 mg Sitagliptin Phosphate (Januvia) 25 mg PO DAILY [facility] Last Admin: 04/02/17 08:41 Dose: 25 mg Physical Exam - Constitutional Appears: Other (lethargy) - Head Exam Head Exam: ATRAUMATIC, NORMAL INSPECTION, NORMOCEPHALIC - Eye Exam Eye Exam: EOMI - ENT Exam ENT Exam: Mucous Membranes Moist - Respiratory Exam Respiratory Exam: NORMAL BREATHING PATTERN - Cardiovascular Exam Cardiovascular Exam: REGULAR RHYTHM - GI/Abdominal Exam GI & Abdominal Exam: absent: Firm - Extremities Exam Extremities exam: Negative for: calf tenderness - Neurological Exam Neurological exam: Altered Results - Vital Signs Recent Vital Signs: Last Vital Signs Temp 98.2 F 04/02/17 12:02 Pulse 76 04/02/17 12:02 Resp 21 04/02/17 12:02 BP 146/91 H 04/02/17 12:02 Pulse Ox 97 04/02/17 10:00 - Labs Labs: Laboratory Results - last 24 hr 04/02/17 06:00 POC Glucose (mg/dL) 117 H Assessment & Plan - Assessment and Plan (Free Text) Assessment: Right MCA CVA with left HP PT/OT to continue to help increase functional independence Team conference for d/c planning Pain: controlled Vascular: no evidence of DVT GI: No evidence of constipation or diarrhea I will put on a low dose of Provigil Patient is an excellent acute rehabilitation candidate and will have focused speech, PT, OT and recreational therapy to help facilitate a safe and appropriate d/c plan
--- NOTE | 2017-04-02 13:03 | PCM.OPOC ---
Physiatry Overall Plan of Care - Overall Plan of Care Estimated Length of Stay in Weeks: 3 Rehab Impairment: Mobility, Gait, Cognition, Speech, Balance, Coordination Etiologic Diagnosis: Cerebrovascular Accident Rehab/Medical Prognosis: Fair - Anticipated Interventions Physical Therapy:: Yes Occupational Therapy:: Yes Speech Therapy:: Yes Recreational Therapy:: Yes - Therapy Goals Bed Mobility: Minimal Assistance Ambulation: Minimal Assistance Functional Positional Changes:: Minimal Assistance - Discharge Plan Identification of Barriers to Discharge: Home Situation Discharge Destination: Subacute
--- NOTE | 2017-04-02 13:18 | PSY.TMCNF ---
Nursing - Vital Signs Vital Signs (Last 8 hours): Vital Signs 04/02/17 04/02/17 04/02/17 08:57 10:00 10:40 Temperature 98.2 F Pulse Rate 81 76 76 Respiratory 21 Rate Blood Pressure 133/71 146/91 H 146/91 H O2 Sat by Pulse 97 97 Oximetry 04/02/17 12:02 Temperature 98.2 F Pulse Rate 76 Respiratory 21 Rate Blood Pressure 146/91 H O2 Sat by Pulse Oximetry Pain: 0 - Precautions: Precautions: Aspiration - Medications/Other Issues Comment: Aphasic - Consults Comment: Dr. Weiss - Toileting Toileting: Dependent - Bladder Management Voiding Method: Indwelling Catheter Bladder Management: Dependent Frequency of Accidents: 0 - Bowel Management Bowel Pattern: Incontinent Bowel Management: Dependent Frequency of Accidents: >5 - Transfers Transfers: Maximal Assistance - ADL's ADL's: Dependent - Patient/Family Teaching Comments: Care post CVA, Safety and Aspiration precautions - Goals/Time Frame Comments: Per multidisciplinary care plans and goals - Provider Provider: Nelly CUELLARN RN CRRN Physical Therapy - Bed Mobility Bed Mobility: Moderate Assistance, Maximum Assistance Comment: rolling R: mod A. rolling L: min A. supine to sit: max A - Transfers Wheelchair to Mat: Verbal Cues, Maximum Assistance Sit to Stand: Verbal Cues, Moderate Assistance, Maximum Assistance Comment: no device - Ambulation Level of Assistance: Maximum Assistance Distance (ft.): 12 Orthoses: LUE giv-sarthak sling Comment: 12 feet, R wall bar, LUE giv-sarthak sling. -max A for LLE progression in swing for flexion and control and max to mod A to stabilize LLE during stance into knee extension. -step by step VCs for sequencing with facilitation for hip extension and VCs for upright gaze; assistance for weight shifting. - mirror feedback utilized with close WC follow for safety - Stair Negotiation Stairs: Level of Assistance: Not Tested Comment: to be assessed when medically appropriate - Standing Balance Static Stand: Moderate Assistance Dynamic Stand: Maximal Assistance - Pain Pain (assessed during therapy session): 0 Comment: pt denies pain - Insight/Carryover Insight/Carryover: Fair - Patient/Family Education Comment: therapy schedule, therapy goals, mobility, safety, use of call larry, stroke recovery, POC, various services, safety, postural control - Assessment/Plan Assessment: Mr. Martinez is a 61 year old male admitted to [facility] acute rehab on s/p CVA. Patient requires moderate complexity decision making and condition is evolving. Patient's history of glioblastoma removal, HTN, DM, falls and his home set-up which includes stairs to enter and negotiate inside of the home will all impact his PT POC. Patient has impaired strength/reduced muscular activation of the L side, impaired postural control, and reduced tolerance to activity, impaired gait, impaired mobility and impaired safety. Pt requires moderate to maximal assistance with all tasks at this time with close monitoring of vital signs. Patient will benefit from skilled therapy services addressing above limited impairments 5-6x per week for 3-4 weeks to maximize safety and independence with all tasks s/p CVA. PT recommends home with 24 hour assistance possible at a WC level pending patient's progress in therapy at completion of full length of stay in acute rehab. - Goals Timeframe: 7 days Goals: Negotiate 4 training steps with single rail with max A. Ambulate 25 feet with WBQC with mod A. min A for sit to/from stand transfers. mod A for SPT. rolling left: CG. rolling right: min A. supine to/from sit: mod A - Provider Therapist: Tina Treadwell PT, DPT License Number: [id number] Occupational Therapy - Arousal/Attention/Orientation Patient Orientation: Person - Pain Pain (assessed during therapy session): 0 Comment: pt denies pain - Insight/Carryover Insight/Carryover: Fair - Patient/Family Education Comment: therapy schedule, therapy goals, mobility, safety, use of call larry, stroke recovery, POC, various services, safety, postural control - Assessment/Plan Assessment: Mr. Martinez is a 61 year old male admitted to [facility] acute rehab on s/p CVA. Patient requires moderate complexity decision making and condition is evolving. Patient's history of glioblastoma removal, HTN, DM, falls and his home set-up which includes stairs to enter and negotiate inside of the home will all impact his PT POC. Patient has impaired strength/reduced muscular activation of the L side, impaired postural control, and reduced tolerance to activity, impaired gait, impaired mobility and impaired safety. Pt requires moderate to maximal assistance with all tasks at this time with close monitoring of vital signs. Patient will benefit from skilled therapy services addressing above limited impairments 5-6x per week for 3-4 weeks to maximize safety and independence with all tasks s/p CVA. PT recommends home with 24 hour assistance possible at a WC level pending patient's progress in therapy at completion of full length of stay in acute rehab. - Goals Timeframe: 7 days Goals: Negotiate 4 training steps with single rail with max A. Ambulate 25 feet with WBQC with mod A. min A for sit to/from stand transfers. mod A for SPT. rolling left: CG. rolling right: min A. supine to/from sit: mod A Speech Therapy - Plan Assessment: Mr. Martinez is a 61 year old male admitted to [facility] acute rehab on s/p CVA. Patient requires moderate complexity decision making and condition is evolving. Patient's history of glioblastoma removal, HTN, DM, falls and his home set-up which includes stairs to enter and negotiate inside of the home will all impact his PT POC. Patient has impaired strength/reduced muscular activation of the L side, impaired postural control, and reduced tolerance to activity, impaired gait, impaired mobility and impaired safety. Pt requires moderate to maximal assistance with all tasks at this time with close monitoring of vital signs. Patient will benefit from skilled therapy services addressing above limited impairments 5-6x per week for 3-4 weeks to maximize safety and independence with all tasks s/p CVA. PT recommends home with 24 hour assistance possible at a WC level pending patient's progress in therapy at completion of full length of stay in acute rehab. Recreational Therapy - Assessment Assessment/Plan: Mr. Martinez is a 61 year old male admitted to [facility] acute rehab on 04/01/17 s/p CVA. Patient requires moderate complexity decision making and condition is evolving. Patient's history of glioblastoma removal, HTN, DM, falls and his home set-up which includes stairs to enter and negotiate inside of the home will all impact his PT POC. Patient has impaired strength/reduced muscular activation of the L side, impaired postural control, and reduced tolerance to activity, impaired gait, impaired mobility and impaired safety. Pt requires moderate to maximal assistance with all tasks at this time with close monitoring of vital signs. Patient will benefit from skilled therapy services addressing above limited impairments 5-6x per week for 3-4 weeks to maximize safety and independence with all tasks s/p CVA. PT recommends home with 24 hour assistance possible at a level pending patient's progress in therapy at completion of full length of stay in acute rehab. Nutrition - Current Diet Current Diet/ Supplement/ Feedings: moderate consistent CHO 2 gram NA pureed honey thick liquids - Appetite Percent Meal Consumed: 75-100% - Comments Comments: Care post CVA, Safety and Aspiration precautions - Assessment/Goals/Time Frame Assessment/Goals/Time Frame: Aphasic - Provider Provider: Hannah Hopson RD Case Management - Discharge Plan Discharge Plan: Subacute care Rehabilitation Plan - Treatment Plan Treatment Plan: Physical Therapy, Occupational Therapy, Speech, Dietary, Patient /Family Education - Discharge Plan Discharge to: Subacute
[2017-04-02] MEDS: Ergocalciferol 50,000 Intl Units Cap PO SCH (13:30)
[2017-04-02] MEDS: Sodium Chloride 0.9% 1,000 ML IV SCH ×2 (13:30→17:56)
[2017-04-03] MEDS ORDERED: Sodium Chloride 0.9% 1,000 ML IV SCH (00:10)
[2017-04-03] MEDS: Insulin Regular 100 units/ml SC SCH ×2 (07:00→21:49)
[2017-04-03] MEDS: Aspirin-Dipyridamole 200-25 mg ER Cap PO SCH ×2 (08:34→21:48)
[2017-04-03] MEDS: Lacosamide 50 MG Tab PO SCH ×2 (08:37→21:47)
--- NOTE | 2017-04-03 12:28 | CP.PCM.PN ---
Subjective - Date & Time of Evaluation Date of Evaluation: 04/03/17 Time of Evaluation: 12:28 - Subjective Subjective: Pt with recent c[place] [id number] cc pvr on admission to [facility] pt is now in rehab. Suggest leave renae when out of rehab refer for gu reEVAL. Thanks Mckinley Objective - Vital Signs/Intake and Output Vital Signs (last 24 hours): Temp Pulse Resp BP Pulse Ox 98.4 F 86 20 173/76 H 97 04/03/17 08:17 04/03/17 09:20 04/03/17 08:17 04/03/17 09:20 04/03/17 08:17 Intake and Output: 04/03/17 04/03/17 06:59 18:59 Intake Total 940 Output Total 1000 Balance -60 - Medications Medications: Current Medications Albuterol/Ipratropium (Duoneb 3 Mg/0.5 Mg (3 Ml) Ud) 3 ml INH RQ6 PRN PRN Reason: Shortness of Breath Atorvastatin Calcium (Lipitor) 40 mg PO HS [facility] Last Admin: 04/02/17 21:11 Dose: 40 mg Clopidogrel Bisulfate (Plavix) 75 mg PO DAILY [facility] Last Admin: 04/03/17 08:34 Dose: 75 mg Dipyridamole/Aspirin (Aggrenox 25-200 Mg) 1 ea PO Q12 [facility] Last Admin: 04/03/17 08:34 Dose: 1 ea Ergocalciferol (Drisdol 50,000 Intl Units Cap) 1 cap PO TUE [facility] Last Admin: 04/02/17 13:30 Dose: 1 cap Escitalopram Oxalate (Lexapro) 10 mg PO DAILY [facility] Last Admin: 04/03/17 08:34 Dose: 10 mg Famotidine (Pepcid) 20 mg PO BID [facility] Last Admin: 04/03/17 08:34 Dose: 20 mg Heparin Sodium (Porcine) (Heparin) 5,000 units SC Q12 [facility] PRN Reason: Protocol Last Admin: 04/03/17 08:34 Dose: 5,000 units Insulin Human Regular (Humulin R) 0 units SC 0600,2100 [facility] PRN Reason: Protocol Last Admin: 04/03/17 07:00 Dose: Not Given Labetalol HCl (Trandate) 50 mg PO Q8@0200,1000,1800 [facility] Last Admin: 04/03/17 09:20 Dose: 50 mg Lacosamide (Vimpat) 150 mg PO Q12 [facility] Last Admin: 04/03/17 08:37 Dose: 150 mg Metformin HCl (Glucophage) 500 mg PO DAILYWM [facility] Last Admin: 04/03/17 08:35 Dose: 500 mg Modafinil (Provigil) 100 mg PO DAILY [facility] Last Admin: 04/03/17 08:37 Dose: 100 mg Sitagliptin Phosphate (Januvia) 25 mg PO DAILY [facility] Last Admin: 04/03/17 08:34 Dose: 25 mg Tamsulosin HCl (Flomax) 0.4 mg PO HS [facility] Last Admin: 04/02/17 21:44 Dose: 0.4 mg
[2017-04-03] MEDS ORDERED: cefTRIAXone IV 1 gm in Dextros 50 ML IVPB SCH (15:34)
--- NOTE | 2017-04-03 18:03 | RAD ---
HISTORY: FEVER COMPARISON: Chest x-ray performed 03/28/17 TECHNIQUE: Chest PA and lateral FINDINGS: Examination limited by habitus. Lateral view obscured by patient's arm which was not elevated. LUNGS: Biapical pleural thickening. Mild patchy opacity in the right hilar/infrahilar region ; infiltrate is not excluded. Please note that chest x-ray has limited sensitivity for the detection of pulmonary masses. PLEURA: No significant pleural effusion identified. No definite pneumothorax . CARDIOVASCULAR: Heart size appears within normal limits. OSSEOUS STRUCTURES: Degenerative changes. VISUALIZED UPPER ABDOMEN: Unremarkable. OTHER FINDINGS: None. IMPRESSION: Biapical pleural thickening. Mild patchy opacity in the right hilar/infrahilar region ; infiltrate is not excluded.
[2017-04-03 18:49] LABS: RBC URINE 1924 /hpf (0-3); URINE BILIRUBIN NEGATIVE (NEGATIVE); URINE BLOOD LARGE (NEGATIVE); URINE COLOR YELLOW (YELLOW); URINE GLUCOSE (UA) NEG (Normal); URINE KETONE TRACE mg/dL (NEGATIVE); URINE LEUKOCYTE ESTERASE TRACE Leu/uL (Negative); URINE PROTEIN 100 mg/dL (NEGATIVE); URINE UROBILINOGEN 0.2-1.0 mg/dL (0.2-1.0); WBC URINE 65 /hpf (0-5)
[2017-04-03] MEDS: Sodium Chloride 0.9% 1,000 ML IV SCH (18:52)
[2017-04-03] MEDS: Piperacillin/Tazobact 3.375 GM in Sodium Chloride 0.9% 100 ML IVPB SCH (23:54)
[2017-04-04 00:07] LABS: BASO % 0.2 % (0.0-2.0); EOS % 0.1 % (0.0-4.0); HEMATOCRIT 37.7 % (35.0-51.0); LYMPH # 1.2 K/uL (1.0-4.3); LYMPH % 10.3 % (20.0-40.0); MEAN CELL VOLUME 82.9 fl (80.0-94.0); MEAN CORPUSCULAR HEMOGLOBIN 27.1 pg (27.0-31.0); MEAN CORPUSCULAR HGB CONC 32.6 g/dL (33.0-37.0); MEAN PLATELET VOLUME 7.4 fl (7.2-11.7); MONO # 1.1 K/uL (0.0-0.8); MONO % 9.2 % (0.0-10.0); NEUT # 9.5 K/uL (1.8-7.0); NEUT % 80.2 % (50.0-75.0); RED CELL DISTRIBUTION WIDTH 15.7 % (11.5-14.5); WHITE BLOOD COUNT 11.8 K/uL (4.8-10.8)
[2017-04-04 00:16] LABS: ALB/GLOB RATIO 1.1 (1.0-2.1); ALKALINE PHOSPHATASE 82 U/L (38-126); ALT/SGPT 32 U/L (21-72); AST/SGOT 33 U/L (17-59); BILIRUBIN,TOTAL 0.6 mg/dl (0.2-1.3); BLOOD UREA NITROGEN 23 mg/dl (9-20); CALCIUM 9.1 mg/dL (8.4-10.2); CARBON DIOXIDE 24 mmol/L (22-30); CHLORIDE 106 mmol/L (98-107); GFR AFRICAN-AMERICAN > 60; GLUCOSE,RANDOM 152 mg/dL (75-110); SODIUM 142 mmol/l (132-148); TOTAL PROTEIN 7.8 G/DL (6.3-8.2)
--- NOTE | 2017-04-04 02:33 | PN ---
DATE: 04/03/2017 SUBJECTIVE: The patient is seen today, 04/03/2017. The patient is more lethargic and he developed fever of 101.4. PHYSICAL EXAMINATION VITAL SIGNS: Temperature 101.4, blood pressure 178/82, respiratory rate 20, and pulse 111. HEENT: Pupils are equal and reactive to light. Normal-appearing mucosa of the conjunctivae, oropharynx, and nasal membrane mucosa. NECK: Supple. No JVD, no carotid bruit, no lymph node, and no thyromegaly. CHEST AND LUNGS: Bilaterally symmetrical expansion. Good air exchange. No rales or rhonchi. CARDIOVASCULAR SYSTEM: PMI is not localized. S1, S2. No additional sounds. ABDOMEN: Normoactive bowel sounds. No tenderness. No organomegaly. No masses. EXTREMITIES: No cyanosis. No clubbing. No edema. CENTRAL NERVOUS SYSTEM: Awake, but has aphasia and left-sided hemiplegia. ASSESSMENT: 1. Cerebrovascular accident. 2. Rule out aspiration pneumonia versus urinary tract infection related to the Michaels catheter. 3. Hypertension. 4. Type 2 diabetes mellitus. PLAN: Chest x-ray and follow results. Urinalysis and culture. Infectious Disease consult. Started Rocephin 1 g IV daily. Stoney MD Ezio
[2017-04-04] MEDS: Piperacillin/Tazobact 3.375 GM in Sodium Chloride 0.9% 100 ML IVPB SCH ×4 (05:06→23:51)
[2017-04-04] MEDS: Insulin Regular 100 units/ml SC SCH ×2 (05:30→21:52)
[2017-04-04 06:32] LABS: BASO % 0.3 % (0.0-2.0); EOS % 0.1 % (0.0-4.0); HEMATOCRIT 37.4 % (35.0-51.0); LYMPH # 1.3 K/uL (1.0-4.3); LYMPH % 10.6 % (20.0-40.0); MEAN CELL VOLUME 84.1 fl (80.0-94.0); MEAN CORPUSCULAR HEMOGLOBIN 27.6 pg (27.0-31.0); MEAN CORPUSCULAR HGB CONC 32.8 g/dL (33.0-37.0); MEAN PLATELET VOLUME 7.6 fl (7.2-11.7); MONO # 1.1 K/uL (0.0-0.8); MONO % 8.9 % (0.0-10.0); NEUT # 10.2 K/uL (1.8-7.0); NEUT % 80.1 % (50.0-75.0); RED CELL DISTRIBUTION WIDTH 15.7 % (11.5-14.5); WHITE BLOOD COUNT 12.7 K/uL (4.8-10.8)
[2017-04-04] MEDS: Sodium Chloride 0.9% 1,000 ML IV SCH (08:13)
[2017-04-04] MEDS: Aspirin-Dipyridamole 200-25 mg ER Cap PO SCH ×2 (08:14→21:51)
[2017-04-04] MEDS: Lacosamide 50 MG Tab PO SCH ×2 (08:20→21:50)
--- NOTE | 2017-04-04 08:58 | HP ---
HISTORY OF PRESENT ILLNESS: This is a 61-year-old [place] male with history of multiple medical problems, recently had a CVA with left-sided hemiplegia. The patient was admitted to acute rehabilitation at [facility] for physical, occupational and speech therapy. The patient still has slurred speech with slight improvement of swallowing. The patient still has left-sided weakness. No chest pain or shortness of breath. REVIEW OF SYSTEMS: Other review of systems is negative. ALLERGIES: No known allergy. MEDICATIONS: As per MAR. PAST MEDICAL HISTORY: 1. History of glioblastoma status post right craniotomy with excision followed by radiation and chemotherapy in 2010. 2. Hypertension. 3. Type 2 diabetes mellitus. SOCIAL HISTORY: No history of smoking, EtOH or substance abuse. FAMILY HISTORY: Not contributory. PHYSICAL EXAMINATION: GENERAL: The patient is in bed comfortable, at the time of this examination. VITAL SIGNS: Blood pressure 131/66, temperature 97.4, respiratory rate 20 and pulse 70. HEENT: Pupils equal, reactive to light. Normal-appearing mucosa of the conjunctivae, oropharynx and nasal membrane mucosa. NECK: Supple. No JVD. No carotid bruit. No lymph node. No thyromegaly. CHEST AND LUNGS: Bilateral symmetrical expansion. Good air exchange. No rales, no rhonchi. CARDIOVASCULAR: PMI not localized. S1 and S2. No additional sounds. ABDOMEN: Normoactive bowel sounds. No tenderness. No organomegaly. No masses. EXTREMITIES: No cyanosis, no clubbing, no edema. 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 ASSESSMENT 1. Cerebrovascular accident. 2. Hypertension. 3. Type 2 diabetes mellitus. 4. Functional urinary retention. PLAN: Continue Michaels catheter for now and we will start the patient on DVT prophylaxis and GI prophylaxis. Neurology consult. Continue physical therapy and current medications. Les Holguin MD
--- NOTE | 2017-04-04 10:51 | CP.PCM.CON ---
History of Present Illness - History of Present Illness History of Present Illness: Infectious Disease Consultation Note- Asked to see this patient at the request of for fever. HPI- Patient is a pleasant 61 year old male with pmh of Gliobalstoma 6 years ago s/p chemo and radiation, atherosclerosis and seizures who was admitted on 2016 for resp difficulty and weakness and was admitted for further work up and he developed difficulty swallowing and had Brain CT and MRI which showed acute pontine infarct and hence was transferred to acute rehab unit for PT and rehab since he has developed left hemiplagia and almost nonverbal at this time. I'm asked to evaluate him because he was more lethargic yesterday and was found to have new onset of fever of 101. per pt. has had renae catheter in place since admission because he was also found to have urinary retention and was advised buy to have renae in place. yesterday UA and urine cx was sent from old renae and new renae was placed. pt. currently sitting in wheelchair with his son by his side in the room and PT also in the room. Pt. can nod yes or no to questions and currently he is denying any complaints. PMD: Dr. Les Holguin MD Review of Systems - Review of Systems Review of Systems: ROS- denies any chills, denies any LERNER, denies any cough but he can't swallow his own spit well secondary to the CVA , denies any sob, denies anyc hest pain, denies any abd. pain. no nausea or vomiting, denies any diarrhea as per pt's son no h/o UTI in the past and pt. did not c/o any dysurea prior to admission or on admission Past Patient History - Past Medical History & Family History Past Medical History?: Yes - Past Social History Smoking Status: Never Smoked Alcohol: None Drugs: Denies Home Situation {Lives}: With Family - CARDIAC Hx Hypertension: Yes - PULMONARY Hx Respiratory Disorders: No - NEUROLOGICAL HX Cerebrovascular Accident: Yes (past CVA's) Hx Seizures: Yes - HEENT Hx HEENT Problems: Yes Hx Difficulty Chewing: Yes Other/Comment: uses eyeglasses for reading and distance - RENAL Hx Chronic Kidney Disease: No - HEMATOLOGICAL/ONCOLOGICAL Hx Cancer: Yes (glioblastoma) - INTEGUMENTARY Hx Dermatological Problems: No - MUSCULOSKELETAL/RHEUMATOLOGICAL Hx Falls: Yes (fall off couch on 03/26/2017) - GASTROINTESTINAL Hx Gastrointestinal Disorders: No - GENITOURINARY/GYNECOLOGICAL Hx Genitourinary Disorders: Yes Other/Comment: 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 - PSYCHIATRIC Hx Psychophysiologic Disorder: No Hx Substance Use: No - SURGICAL HISTORY Hx Surgeries: Yes Other/Comment: s/p Craniotomy,Radiation and Chemotherapy=09/2010-Glioblastoma - ANESTHESIA Hx Anesthesia: Yes Hx Anesthesia Reactions: No Hx Malignant Hyperthermia: No Meds Allergies/Adverse Reactions: Allergies Allergy/AdvReac Type Severity Reaction Status Date / Time No Known Allergies Allergy Verified 04/01/17 20:07 - Medications Medications: Current Medications Acetaminophen (Tylenol 650 Mg Supp) 650 mg [place] Q4 PRN PRN Reason: Fever >100.4 F Last Admin: 04/03/17 18:10 Dose: 650 mg Albuterol/Ipratropium (Duoneb 3 Mg/0.5 Mg (3 Ml) Ud) 3 ml INH RQ6 PRN PRN Reason: Shortness of Breath Atorvastatin Calcium (Lipitor) 40 mg PO HS [facility] Last Admin: 04/03/17 21:48 Dose: 40 mg Clopidogrel Bisulfate (Plavix) 75 mg PO DAILY [facility] Last Admin: 04/04/17 08:17 Dose: 75 mg Dipyridamole/Aspirin (Aggrenox 25-200 Mg) 1 ea PO Q12 [facility] Last Admin: 04/04/17 08:14 Dose: 1 ea Ergocalciferol (Drisdol 50,000 Intl Units Cap) 1 cap PO TUE [facility] Last Admin: 04/02/17 13:30 Dose: 1 cap Escitalopram Oxalate (Lexapro) 10 mg PO DAILY [facility] Last Admin: 04/04/17 08:15 Dose: 10 mg Famotidine (Pepcid) 20 mg PO BID [facility] Last Admin: 04/04/17 08:15 Dose: 20 mg Heparin Sodium (Porcine) (Heparin) 5,000 units SC Q12 [facility] PRN Reason: Protocol Last Admin: 04/04/17 08:14 Dose: 5,000 units Sodium Chloride (Sodium Chloride 0.9%) 1,000 mls @ 70 mls/hr IV .[id number] [facility] Stop: 04/04/17 18:08 Last Admin: 04/04/17 08:13 Dose: 70 mls/hr Piperacillin Sod/Tazobactam (Sod 3.375 gm/ Sodium Chloride) 100 mls @ 100 mls/ hr IVPB Q6 [facility] PRN Reason: Protocol Last Admin: 04/04/17 05:06 Dose: 100 mls/hr Insulin Human Regular (Humulin R) 0 units SC 0600,2100 [facility] PRN Reason: Protocol Last Admin: 04/04/17 05:30 Dose: Not Given Labetalol HCl (Trandate) 50 mg PO Q8 [facility] Last Admin: 04/04/17 05:24 Dose: 50 mg Lacosamide (Vimpat) 150 mg PO Q12 [facility] Last Admin: 04/04/17 08:20 Dose: 150 mg Metformin HCl (Glucophage) 500 mg PO DAILYWM [facility] Last Admin: 04/04/17 08:13 Dose: 500 mg Sitagliptin Phosphate (Januvia) 25 mg PO DAILY [facility] Last Admin: 04/04/17 08:14 Dose: 25 mg Tamsulosin HCl (Flomax) 0.4 mg PO HS [facility] Last Admin: 04/03/17 21:48 Dose: 0.4 mg Physical Exam - Constitutional Appears: No Acute Distress - Eye Exam Eye Exam: EOMI - ENT Exam ENT Exam: Normal Oropharynx - Neck Exam Neck exam: Positive for: Full Rom Additional comments: supple - Respiratory Exam Respiratory Exam: NORMAL BREATHING PATTERN Additional comments: no wheezing no crackles slightly decreased breath sounds at bases but also pt. with poor inspiratory effort - Cardiovascular Exam Cardiovascular Exam: RRR, +S1, +S2 - GI/Abdominal Exam GI & Abdominal Exam: Normal Bowel Sounds, Soft Additional comments: NT, ND - Extremities Exam Extremities exam: Positive for: normal inspection - Neurological Exam Neurological exam: Alert Additional comments: left Hemiplagia Results - Vital Signs Recent Vital Signs: Last Vital Signs Temp 97.9 F 04/04/17 08:25 Pulse 96 H 04/04/17 08:25 Resp 22 04/04/17 08:25 BP 135/71 04/04/17 08:25 Pulse Ox 92 L 04/04/17 08:25 - Labs Result Diagrams: 04/04/17 05:25 04/04/17 00:00 Labs: Laboratory Results - last 24 hr 04/03/17 04/03/17 04/04/17 18:32 21:01 00:00 WBC 11.8 H D RBC 4.55 Hgb 12.3 Hct 37.7 MCV 82.9 MCH 27.1 MCHC 32.6 L RDW 15.7 H Plt Count 256 MPV 7.4 Neut % (Auto) 80.2 H Lymph % (Auto) 10.3 L [place] % (Auto) 9.2 Eos % (Auto) 0.1 Baso % (Auto) 0.2 Neut # 9.5 H Lymph # 1.2 [place] # 1.1 H Eos # 0.0 Baso # 0.0 Sodium Potassium Chloride Carbon Dioxide Anion Gap BUN Creatinine Est GFR ( Amer) Est GFR (Non-Af Amer) POC Glucose (mg/dL) 167 H Random Glucose Calcium Total Bilirubin AST ALT Alkaline Phosphatase Total Protein Albumin Globulin Albumin/Globulin Ratio Urine Color Yellow Urine Clarity Cloudy Urine pH 6.0 Ur Specific [place] 1.026 Urine Protein 100 Urine Glucose (UA) Neg Urine Ketones Trace Urine Blood Large Urine Nitrate Negative Urine Bilirubin Negative Urine Urobilinogen 0.2-1.0 Ur Leukocyte Esterase Trace Urine RBC (Auto) 1924 H Urine Microscopic WBC 65 H Ur Squamous Epith Cells 2 Urine Yeast (Budding) Few H 04/04/17 04/04/17 04/04/17 00:00 05:16 05:25 WBC 12.7 H RBC 4.44 Hgb 12.3 Hct 37.4 MCV 84.1 MCH 27.6 MCHC 32.8 L RDW 15.7 H Plt Count 251 MPV 7.6 Neut % (Auto) 80.1 H Lymph % (Auto) 10.6 L [place] % (Auto) 8.9 Eos % (Auto) 0.1 Baso % (Auto) 0.3 Neut # 10.2 H Lymph # 1.3 [place] # 1.1 H Eos # 0.0 Baso # 0.0 Sodium 142 Potassium 4.0 Chloride 106 Carbon Dioxide 24 Anion Gap 16 BUN 23 H Creatinine 1.0 Est GFR ( Amer) > 60 Est GFR (Non-Af Amer) > 60 POC Glucose (mg/dL) 135 H Random Glucose 152 H Calcium 9.1 Total Bilirubin 0.6 AST 33 ALT 32 Alkaline Phosphatase 82 Total Protein 7.8 Albumin 4.1 Globulin 3.7 Albumin/Globulin Ratio 1.1 Urine Color Urine Clarity Urine pH Ur Specific [place] Urine Protein Urine Glucose (UA) Urine Ketones Urine Blood Urine Nitrate Urine Bilirubin Urine Urobilinogen Ur Leukocyte Esterase Urine RBC (Auto) Urine Microscopic WBC Ur Squamous Epith Cells Urine Yeast (Budding) Laboratory Results - last 72 hr 04/02/17 04/02/17 04/02/17 06:00 16:38 20:51 WBC RBC Hgb Hct MCV MCH MCHC RDW Plt Count MPV Neut % (Auto) Lymph % (Auto) [place] % (Auto) Eos % (Auto) Baso % (Auto) Neut # Lymph # [place] # Eos # Baso # Sodium Potassium Chloride Carbon Dioxide Anion Gap BUN Creatinine Est GFR ( Amer) Est GFR (Non-Af Amer) POC Glucose (mg/dL) 117 H 117 H 143 H Random Glucose Calcium Total Bilirubin AST ALT Alkaline Phosphatase Total Protein Albumin Globulin Albumin/Globulin Ratio Urine Color Urine Clarity Urine pH Ur Specific [place] Urine Protein Urine Glucose (UA) Urine Ketones Urine Blood Urine Nitrate Urine Bilirubin Urine Urobilinogen Ur Leukocyte Esterase Urine RBC (Auto) Urine Microscopic WBC Ur Squamous Epith Cells Urine Yeast (Budding) 04/03/17 04/03/17 04/03/17 06:47 18:32 21:01 WBC RBC Hgb Hct MCV MCH MCHC RDW Plt Count MPV Neut % (Auto) Lymph % (Auto) [place] % (Auto) Eos % (Auto) Baso % (Auto) Neut # Lymph # [place] # Eos # Baso # Sodium Potassium Chloride Carbon Dioxide Anion Gap BUN Creatinine Est GFR ( Amer) Est GFR (Non-Af Amer) POC Glucose (mg/dL) 145 H 167 H Random Glucose Calcium Total Bilirubin AST ALT Alkaline Phosphatase Total Protein Albumin Globulin Albumin/Globulin Ratio Urine Color Yellow Urine Clarity Cloudy Urine pH 6.0 Ur Specific [place] 1.026 Urine Protein 100 Urine Glucose (UA) Neg Urine Ketones Trace Urine Blood Large Urine Nitrate Negative Urine Bilirubin Negative Urine Urobilinogen 0.2-1.0 Ur Leukocyte Esterase Trace Urine RBC (Auto) 1924 H Urine Microscopic WBC 65 H Ur Squamous Epith Cells 2 Urine Yeast (Budding) Few H 04/04/17 04/04/17 04/04/17 00:00 00:00 05:16 WBC 11.8 H D RBC 4.55 Hgb 12.3 Hct 37.7 MCV 82.9 MCH 27.1 MCHC 32.6 L RDW 15.7 H Plt Count 256 MPV 7.4 Neut % (Auto) 80.2 H Lymph % (Auto) 10.3 L [place] % (Auto) 9.2 Eos % (Auto) 0.1 Baso % (Auto) 0.2 Neut # 9.5 H Lymph # 1.2 [place] # 1.1 H Eos # 0.0 Baso # 0.0 Sodium 142 Potassium 4.0 Chloride 106 Carbon Dioxide 24 Anion Gap 16 BUN 23 H Creatinine 1.0 Est GFR ( Amer) > 60 Est GFR (Non-Af Amer) > 60 POC Glucose (mg/dL) 135 H Random Glucose 152 H Calcium 9.1 Total Bilirubin 0.6 AST 33 ALT 32 Alkaline Phosphatase 82 Total Protein 7.8 Albumin 4.1 Globulin 3.7 Albumin/Globulin Ratio 1.1 Urine Color Urine Clarity Urine pH Ur Specific [place] Urine Protein Urine Glucose (UA) Urine Ketones Urine Blood Urine Nitrate Urine Bilirubin Urine Urobilinogen Ur Leukocyte Esterase Urine RBC (Auto) Urine Microscopic WBC Ur Squamous Epith Cells Urine Yeast (Budding) 04/04/17 05:25 WBC 12.7 H RBC 4.44 Hgb 12.3 Hct 37.4 MCV 84.1 MCH 27.6 MCHC 32.8 L RDW 15.7 H Plt Count 251 MPV 7.6 Neut % (Auto) 80.1 H Lymph % (Auto) 10.6 L [place] % (Auto) 8.9 Eos % (Auto) 0.1 Baso % (Auto) 0.3 Neut # 10.2 H Lymph # 1.3 [place] # 1.1 H Eos # 0.0 Baso # 0.0 Sodium Potassium Chloride Carbon Dioxide Anion Gap BUN Creatinine Est GFR ( Amer) Est GFR (Non-Af Amer) POC Glucose (mg/dL) Random Glucose Calcium Total Bilirubin AST ALT Alkaline Phosphatase Total Protein Albumin Globulin Albumin/Globulin Ratio Urine Color Urine Clarity Urine pH Ur Specific [place] Urine Protein Urine Glucose (UA) Urine Ketones Urine Blood Urine Nitrate Urine Bilirubin Urine Urobilinogen Ur Leukocyte Esterase Urine RBC (Auto) Urine Microscopic WBC Ur Squamous Epith Cells Urine Yeast (Budding) Microbiology 04/03/17 18:32 Urine,Catheterized Urine Culture - Preliminary Gram Negative Nikhil Accession No. : [id number] Patient Name / ID : ARLENE CHIRINOS / [id number] Exam Date : 03/30/2017 14:58:06 ( Approved ) Study Comment : Sex / Age : M / 61Y Creator : Jack Stevenson MD Dictator : Jack Stevenson MD Director Of Federal Sales : Scale Technician : Jack Stevenson MD Approver2 : Report Date : 03/30/2017 15:38:24 My Comment : PROCEDURE: CT HEAD WITHOUT CONTRAST. HISTORY: New Stroke Vs. Bleed COMPARISON: 03/26/2017 TECHNIQUE: Axial computed tomography images were obtained through the head/brain without intravenous contrast. Radiation dose: Total exam DLP = mGy-cm. This CT exam was performed using one or more of the following dose reduction techniques: Automated exposure control, adjustment of the mA and/or kV according to patient size, and/or use of iterative reconstruction technique. FINDINGS: HEMORRHAGE: No intracranial hemorrhage. BRAIN: No mass effect or edema. Extensive periventricular white matter ischemic disease with old left temporal infarct. Re- demonstration of focal hypodensity in the left indu compatible with ischemia. No acute hemorrhage. VENTRICLES: Unremarkable. No hydrocephalus. CALVARIUM: Unremarkable. PARANASAL SINUSES: Unremarkable as visualized. No significant inflammatory changes. MASTOID AIR CELLS: Unremarkable as visualized. No inflammatory changes. OTHER FINDINGS: None. IMPRESSION: Extensive periventricular white matter ischemic disease with old left temporal infarct. Re- demonstration of focal hypodensity in the left indu compatible with ischemia. No acute hemorrhage. No significant interval change. Accession No. : [id number] Patient Name / ID : ARLENE CHIRINOS / [id number] Exam Date : 04/03/2017 16:07:47 ( Approved ) Study Comment : Sex / Age : M / 61Y Creator : Shivani Booth MD Dictator : Shivani Booth MD Director Of Federal Sales : Scale Technician : Shivani Booth MD Approver2 : Report Date : 04/03/2017 18:01:21 My Comment : HISTORY: FEVER COMPARISON: Chest x-ray performed 03/28/17 TECHNIQUE: Chest PA and lateral FINDINGS: Examination limited by habitus. Lateral view obscured by patient's arm which was not elevated. LUNGS: Biapical pleural thickening. Mild patchy opacity in the right hilar/infrahilar region ; infiltrate is not excluded. Please note that chest x-ray has limited sensitivity for the detection of pulmonary masses. PLEURA: No significant pleural effusion identified. No definite pneumothorax . CARDIOVASCULAR: Heart size appears within normal limits. OSSEOUS STRUCTURES: Degenerative changes. VISUALIZED UPPER ABDOMEN: Unremarkable. OTHER FINDINGS: None. IMPRESSION: Biapical pleural thickening. Mild patchy opacity in the right hilar/infrahilar region ; infiltrate is not excluded. Accession No. : [id number] Patient Name / ID : ARLENE CHIRINOS / [id number] Exam Date : 03/27/2017 10:00:06 ( Approved ) Study Comment : Sex / Age : M / 61Y Creator : Claudia Casas MD Dictator : Claudia Casas MD Director Of Federal Sales : Scale Technician : Claudia Casas MD Approver2 : Report Date : 03/27/2017 11:12:52 My Comment : PROCEDURE: MRI BRAIN WITH AND WITHOUT CONTRAST HISTORY: recurrent mass COMPARISON: Comparison is made to the previous study dated 03/30/2015 TECHNIQUE: Multiplanar, multisequence MR images of the brain were obtained with and without intravenous contrast enhancement. FINDINGS: HEMORRHAGE: None DWI: There are foci of diffusion restriction noted at the right indu and left internal capsule consistent with acute / early subacute infarction. BRAIN PARENCHYMA: Foci of encephalomalacia is again noted at the left temporal region without evidence of enhancement likely represent encephalomalacia and post surgical changes given the patient's history of prior tumor resection at this region. There is adjacent ex vacuo dietitian of the left lateral ventricle. Mild-to- moderate atrophy is again noted. Moderate to extensive white matter chronic microvascular ischemic changes are again noted. ENHANCEMENT: No abnormal intracranial enhancement. VENTRICLES: Unremarkable. No hydrocephalus. CRANIUM: Unremarkable. ORBITS: Grossly unremarkable. PARANASAL SINUSES/MASTOIDS: Mild sinuses mucosal thickening is noted without evidence of air-fluid level. VASCULAR SYSTEM: Skull base flow voids intact. OTHER FINDINGS: None . IMPRESSION: Foci of diffusion restriction with mild increased FLAIR signal noted at the right indu and left internal capsule consistent with acute/ early subacute infarction. Otherwise no significant interval change compared to the previous exam. No evidence of enhancing mass lesion in the brain. Findings were reported to and discussed with the referring Dr.Krish Vikas MCDONOUGH at 11:07 a.m. on 03/27/2017. Assessment & Plan (1) Generalized weakness Status: Acute (2) Aphasia S/P CVA Status: Acute (3) Dysphasia following cerebrovascular accident (CVA) Status: Acute (4) Fever Status: Acute (5) Leucocytosis Status: Acute - Assessment and Plan (Free Text) Assessment: A/P- 61 year old male with h/o Gliobalstoma few years ago s/p chemo and radiation who was admitted with weakness and resp difficulty 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 pt. s/p CVA and has left hemiplagia and dysohagia and was found to have new onset fever yesterday. the source of the fever could be either from the renae cath vs pneumonitis secondary to aspiration specially since pt. has trouble swallowing. blood cx- pending UA- negative Urine cx- prelim GNR cxr- ? right hilar patchy opacity as per report. Plan- await final ID of the GNR in urine cx. await blood cx results. agree with IV zosyn that was initiated by PCP last night as it has broad gram neg coverage pending ID and sensitivity of the urine cx. advise strict aspiration precautions. monitor temp and wbc. all above d/w patient and his son(consuelo) who is at bedside and his nurse and . Thank you for allowing me to take part in the care of this patient.
--- NOTE | 2017-04-04 18:26 | CP.PCM.PN ---
Subjective - Date & Time of Evaluation Date of Evaluation: 04/04/17 Time of Evaluation: 18:25 - Subjective Subjective: Patient seen in room lethargic had been on Provigil for one day but d/c'd because of tachycardia now seen by neuro and concern of possible repeat CVA and will get CT scan now he was able to open eyes and had a good morning if no acute abnormality will consider restarting the Provigil Objective - Vital Signs/Intake and Output Vital Signs (last 24 hours): Temp Pulse Resp BP Pulse Ox 97.9 F 89 22 140/70 98 04/04/17 08:25 04/04/17 13:27 04/04/17 08:25 04/04/17 13:27 04/04/17 11:24 Intake and Output: 04/04/17 04/04/17 06:59 18:59 Intake Total 210 Output Total 200 Balance 10 - Medications Medications: Current Medications Acetaminophen (Tylenol 650 Mg Supp) 650 mg [place] Q4 PRN PRN Reason: Fever >100.4 F Last Admin: 04/04/17 11:31 Dose: 650 mg Albuterol/Ipratropium (Duoneb 3 Mg/0.5 Mg (3 Ml) Ud) 3 ml INH RQ6 PRN PRN Reason: Shortness of Breath Atorvastatin Calcium (Lipitor) 40 mg PO HS [facility] Last Admin: 04/03/17 21:48 Dose: 40 mg Clopidogrel Bisulfate (Plavix) 75 mg PO DAILY [facility] Last Admin: 04/04/17 08:17 Dose: 75 mg Dipyridamole/Aspirin (Aggrenox 25-200 Mg) 1 ea PO Q12 [facility] Last Admin: 04/04/17 08:14 Dose: 1 ea Ergocalciferol (Drisdol 50,000 Intl Units Cap) 1 cap PO TUE [facility] Last Admin: 04/02/17 13:30 Dose: 1 cap Escitalopram Oxalate (Lexapro) 10 mg PO DAILY [facility] Last Admin: 04/04/17 08:15 Dose: 10 mg Famotidine (Pepcid) 20 mg PO BID [facility] Last Admin: 04/04/17 17:16 Dose: 20 mg Heparin Sodium (Porcine) (Heparin) 5,000 units SC Q12 [facility] PRN Reason: Protocol Last Admin: 04/04/17 08:14 Dose: 5,000 units Piperacillin Sod/Tazobactam (Sod 3.375 gm/ Sodium Chloride) 100 mls @ 100 mls/ hr IVPB Q6 [facility] PRN Reason: Protocol Last Admin: 04/04/17 17:16 Dose: 100 mls/hr Insulin Human Regular (Humulin R) 0 units SC 0600,2100 [facility] PRN Reason: Protocol Last Admin: 04/04/17 05:30 Dose: Not Given Labetalol HCl (Trandate) 50 mg PO Q8 [facility] Last Admin: 04/04/17 13:27 Dose: 50 mg Lacosamide (Vimpat) 150 mg PO Q12 [facility] Last Admin: 04/04/17 08:20 Dose: 150 mg Metformin HCl (Glucophage) 500 mg PO DAILYWM [facility] Last Admin: 04/04/17 08:13 Dose: 500 mg Modafinil (Provigil) 100 mg PO DAILY [facility] Sitagliptin Phosphate (Januvia) 25 mg PO DAILY [facility] Last Admin: 04/04/17 08:14 Dose: 25 mg Tamsulosin HCl (Flomax) 0.4 mg PO HS [facility] Last Admin: 04/03/17 21:48 Dose: 0.4 mg - Labs Labs: 04/04/17 05:25 04/04/17 00:00
--- NOTE | 2017-04-04 19:06 | CT ---
PROCEDURE: CT HEAD WITHOUT CONTRAST. HISTORY: r/o bleed COMPARISON: Noncontrast head CT performed 03/30/17 TECHNIQUE: Axial computed tomography images were obtained through the head/brain without intravenous contrast. Radiation dose: Total exam DLP = 789.67 MGy-cm. This CT exam was performed using one or more of the following dose reduction techniques: Automated exposure control, adjustment of the mA and/or kV according to patient size, and/or use of iterative reconstruction technique. FINDINGS: HEMORRHAGE: No intracranial hemorrhage. BRAIN: No mass effect or edema. Extensive periventricular white matter ischemic disease with old left temporal infarct. Re- demonstration of focal hypodensity in the left indu compatible with ischemia. No acute hemorrhage. VENTRICLES: Ex vacuo dilatation, left lateral ventricle. No hydrocephalus. CALVARIUM: Left craniotomy. PARANASAL SINUSES: Unremarkable as visualized. No significant inflammatory changes. MASTOID AIR CELLS: Unremarkable as visualized. No inflammatory changes. OTHER FINDINGS: None. IMPRESSION: Extensive periventricular white matter ischemic disease with old left temporal infarct. Re- demonstration of focal hypodensity in the left indu compatible with ischemia. No acute intracranial hemorrhage identified. No significant interval change.
[2017-04-05] MEDS: Piperacillin/Tazobact 3.375 GM in Sodium Chloride 0.9% 100 ML IVPB SCH ×4 (05:21→23:26)
[2017-04-05] MEDS: Insulin Regular 100 units/ml SC SCH ×2 (05:41→21:31)
--- NOTE | 2017-04-05 06:25 | CON ---
DATE: 04/04/2017 ATTENDING PHYSICIAN: Les Holguin MD LOCATION: Patient is in room number 625. REASON FOR THE CONSULTATION: Stroke. CHIEF COMPLAINT: Patient was transferred from Telemetry to the Physical Therapy Unit to improve his strength from his stroke. From neurological point of view, I was called in to evaluate him for further management. HISTORY OF PRESENT ILLNESS: Mr. Margo Martinez is a 61-year-old, right-handed, Citizen Of [place] male, who is known to me for more than 5 years, knowing from he did have glioblastoma, being in surgery. Following surgery, I have not seen him for about 2 to 3 years. Patient was brought into [facility] with a history of worsening his mental status. Following this, patient developed left-sided weakness. The exam was consistent with brain stem stroke; however, the MRI of the brain and followup CAT scan showed that right pontine and left thalamic infarcts. Considering the infarct region, this looks like it is small embolic /?ischemic infarct. Patient was worked up basically for his stroke and he was transferred back to the Physical Therapy Unit. Patient's mental status has been changed today, manifesting with increasing sleepiness, nonresponsive to verbal stimuli, and not communicating at present. Constantly sleeping with heavy snoring consistent with Shivam-Stoke breathing. PAST MEDICAL HISTORY: [id number] diabetes mellitus, hypertension, coronary artery disease, status post glioblastoma multiforme surgery, on radiation, seizures. PERSONAL HISTORY: Denies smoking, alcohol use. REVIEW OF SYSTEMS: A 12-point system being reviewed. From neuro, change in mental status and worsening his neuro status. MEDICATIONS: Aggrenox, Drisdol, Flomax, Glucophage, Humulin, Januvia, Lexapro, Lipitor, piperacillin and tazobactam, Plavix, Provigil, Trandate, Tylenol, and Vimpat. PHYSICAL EXAMINATION: VITAL SIGNS: Blood pressure 143/75, respiratory rate 22, temperature 97.9 with a pulse rate 90. NECK: Supple. HEART: Systolic murmur. EXTREMITIES: Left leg externally rotated. NEUROLOGIC: The patient verbally not arousable. On tactile stimuli, patient is arousable. Some facial sign as answers to the questions. He went constantly back to the sleep. Sleep consistent with the Shivam-Stroke breathing. On opening the eyelids, pupils reactive to light, had good corneal reflex. Left, had dense facial asymmetry and flattening of the nasolabial fold. Gag could not able to be evaluated. Motor examination: Spontaneous movement of the right arm, left side is completely hemiplegic. Deep tendon reflexes: Hyperreflexic on the right side. Plantars are upgoing on the right side. Sensory examination: Responded to pain symmetrically on both sides. Coordination: Gait deferred at this time. The patient was examined in the presence of his sons as well as his . The patient's condition also discussed personally with the customer account technician, Dr. Bryan. LABORATORY DATA: His recent workup, WBC 12.7, hemoglobin 12.3, hematocrit 37.4, platelets 251. Sodium 142, potassium 4.0, chloride 106, bicarbonate 24, BUN 16, glucose 135. Urine shows 1924 rbc's with a few yeast on 04/03/2017. CONCLUSION: Mr. Margo Martinez presenting with left-sided hemiplegia, Shivam-Stroke breathing with new lethargicness. There is a possibility of increasing intracranial pressure Vs Central Sleep Apnea. Due to the sudden change in the neuro status, any acute pathology should be ruled out from neuro point of view. RECOMMENDATION: CT of the head is recommended to rule out any intracranial acute pathology. Bipap as recommended, If the problem is unchanged, probably patient may need appropriate antibiotic for unexplained fever at present. ?Fever may be central process. Continue the present management. I will follow the CT of the head and necessary arrangements will be made if CT of the head is positive. The patient's condition has been discussed with all family members. Vikas Quezada MD [facility]
--- NOTE | 2017-04-05 07:00 | CP.PCM.CON ---
History of Present Illness - History of Present Illness History of Present Illness: consult was dictated NEW LETHARGIES WITH CHYENE STOKE BREATHING SGGEST INC ICP Vs CENTRAL SLEEP APNEA REC CAT AND R/O NEW PATHOLOGICAL FINDINGS SUGGEST BIPAP ASPIRATION PRECAUTION Past Patient History - Past Medical History & Family History Past Medical History?: Yes - Past Social History Smoking Status: Never Smoked Alcohol: None Drugs: Denies Home Situation {Lives}: With Family - CARDIAC Hx Hypertension: Yes - PULMONARY Hx Respiratory Disorders: No - NEUROLOGICAL HX Cerebrovascular Accident: Yes (past CVA's) Hx Seizures: Yes - HEENT Hx HEENT Problems: Yes Hx Difficulty Chewing: Yes Other/Comment: uses eyeglasses for reading and distance - RENAL Hx Chronic Kidney Disease: No - ENDOCRINE/METABOLIC Hx Diabetes Mellitus Type 2: Yes - HEMATOLOGICAL/ONCOLOGICAL Hx Cancer: Yes (glioblastoma) - INTEGUMENTARY Hx Dermatological Problems: No - MUSCULOSKELETAL/RHEUMATOLOGICAL Hx Falls: Yes (fall off couch on 03/26/2017) - GASTROINTESTINAL Hx Gastrointestinal Disorders: No - GENITOURINARY/GYNECOLOGICAL Hx Genitourinary Disorders: Yes Other/Comment: 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 - PSYCHIATRIC Hx Psychophysiologic Disorder: No Hx Substance Use: No - SURGICAL HISTORY Hx Surgeries: Yes Other/Comment: s/p Craniotomy,Radiation and Chemotherapy=09/2010-Glioblastoma - ANESTHESIA Hx Anesthesia: Yes Hx Anesthesia Reactions: No Hx Malignant Hyperthermia: No Meds Allergies/Adverse Reactions: Allergies Allergy/AdvReac Type Severity Reaction Status Date / Time No Known Allergies Allergy Verified 04/01/17 20:07 - Medications Medications: Current Medications Acetaminophen (Tylenol 650 Mg Supp) 650 mg [place] Q4 PRN PRN Reason: Fever >100.4 F Last Admin: 04/04/17 11:31 Dose: 650 mg Albuterol/Ipratropium (Duoneb 3 Mg/0.5 Mg (3 Ml) Ud) 3 ml INH RQ6 PRN PRN Reason: Shortness of Breath Atorvastatin Calcium (Lipitor) 40 mg PO HS [facility] Last Admin: 04/04/17 21:51 Dose: 40 mg Clopidogrel Bisulfate (Plavix) 75 mg PO DAILY [facility] Last Admin: 04/04/17 08:17 Dose: 75 mg Dipyridamole/Aspirin (Aggrenox 25-200 Mg) 1 ea PO Q12 [facility] Last Admin: 04/04/17 21:51 Dose: 1 ea Ergocalciferol (Drisdol 50,000 Intl Units Cap) 1 cap PO TUE [facility] Last Admin: 04/02/17 13:30 Dose: 1 cap Escitalopram Oxalate (Lexapro) 10 mg PO DAILY [facility] Last Admin: 04/04/17 08:15 Dose: 10 mg Famotidine (Pepcid) 20 mg PO BID [facility] Last Admin: 04/04/17 17:16 Dose: 20 mg Heparin Sodium (Porcine) (Heparin) 5,000 units SC Q12 [facility] PRN Reason: Protocol Last Admin: 04/04/17 21:51 Dose: 5,000 units Piperacillin Sod/Tazobactam (Sod 3.375 gm/ Sodium Chloride) 100 mls @ 100 mls/ hr IVPB Q6 [facility] PRN Reason: Protocol Last Admin: 04/05/17 05:21 Dose: 100 mls/hr Sodium Chloride 1,000 ml/ IV (SUPPLIES) 1,000 mls @ 70 mls/hr IV DAILY [facility] Insulin Human Regular (Humulin R) 0 units SC 0600,2100 [facility] PRN Reason: Protocol Last Admin: 04/05/17 05:41 Dose: Not Given Labetalol HCl (Trandate) 50 mg PO Q8 [facility] Last Admin: 04/05/17 05:40 Dose: 50 mg Lacosamide (Vimpat) 150 mg PO Q12 [facility] Last Admin: 04/04/17 21:50 Dose: 150 mg Metformin HCl (Glucophage) 500 mg PO DAILYWM [facility] Last Admin: 04/04/17 08:13 Dose: 500 mg Modafinil (Provigil) 100 mg PO DAILY [facility] Sitagliptin Phosphate (Januvia) 25 mg PO DAILY [facility] Last Admin: 04/04/17 08:14 Dose: 25 mg Tamsulosin HCl (Flomax) 0.4 mg PO HS [facility] Last Admin: 04/04/17 21:51 Dose: 0.4 mg Results - Vital Signs Recent Vital Signs: Last Vital Signs Temp 98.2 F 04/04/17 21:00 Pulse 82 04/05/17 05:40 Resp 20 04/04/17 21:00 BP 136/74 04/05/17 05:40 Pulse Ox 100 04/04/17 21:00 - Labs Result Diagrams: 04/04/17 05:04/04/17 00:00 Labs: Laboratory Results - last 24 hr 04/04/17 04/05/17 21:07 05:14 POC Glucose (mg/dL) 134 H 114 H
[2017-04-05] MEDS: Lacosamide 50 MG Tab PO SCH ×2 (08:17→21:35)
[2017-04-05] MEDS: Aspirin-Dipyridamole 200-25 mg ER Cap PO SCH ×2 (08:18→21:34)
[2017-04-05 09:19] LABS: BASO % 0.2 % (0.0-2.0); EOS # 0.1 K/uL (0.0-0.7); EOS % 0.6 % (0.0-4.0); HEMATOCRIT 34.7 % (35.0-51.0); LYMPH # 1.1 K/uL (1.0-4.3); LYMPH % 11.9 % (20.0-40.0); MEAN CELL VOLUME 84.1 fl (80.0-94.0); MEAN CORPUSCULAR HEMOGLOBIN 27.8 pg (27.0-31.0); MONO # 0.8 K/uL (0.0-0.8); MONO % 8.1 % (0.0-10.0); NEUT # 7.6 K/uL (1.8-7.0); NEUT % 79.2 % (50.0-75.0); RED CELL DISTRIBUTION WIDTH 16.3 % (11.5-14.5); WHITE BLOOD COUNT 9.6 K/uL (4.8-10.8)
--- NOTE | 2017-04-05 11:27 | PN ---
DATE: 04/04/2017 SUBJECTIVE: The patient was seen on 04/04/2017. He was not in any cardiopulmonary distress. The patient's mental status was fluctuating during the day. PHYSICAL EXAMINATION: VITAL SIGNS: Blood pressure was 132/71, temperature 98.2, respiratory rate 20, and pulse 88. HEENT: Pupils equal, reactive to light. NECK: Supple. No JVD. No carotid bruit. No lymph node. No thyromegaly. CHEST AND LUNGS: Bilateral symmetrical expansion. Good air exchange. No rales. No rhonchi. CARDIOVASCULAR SYSTEM: PMI not localized. S1 and S2. No additional sounds. ABDOMEN: Normoactive bowel sounds. No tenderness. No organomegaly. No masses. EXTREMITIES: No cyanosis. No clubbing. No edema. CENTRAL NERVOUS SYSTEM: Awake and having aphasia and left-sided hemiparesis. ASSESSMENT: 1. Cerebrovascular accident. 2. Acute rehabilitation. 3. Type 2 diabetes mellitus. 4. Hypertension. 5. Aspiration pneumonia. 6. Urinary tract infection. PLAN: Continue antibiotics as per ID and continue physical therapy, occupational therapy, and current medications. Les Holguin MD
--- NOTE | 2017-04-05 12:14 | CP.PCM.PN ---
Subjective - Date & Time of Evaluation Date of Evaluation: 04/05/17 Time of Evaluation: 12:00 - Subjective Subjective: ID note- Pt. seen and examined today in acute rehab doing his PT session and his at his bedisde. Pt. much more alert today and smiles and feels better overall . denies any fever or chills. Objective - Vital Signs/Intake and Output Vital Signs (last 24 hours): Temp Pulse Resp BP Pulse Ox 97.9 F 85 20 147/81 99 04/05/17 08:09 04/05/17 08:09 04/05/17 08:09 04/05/17 08:09 04/05/17 08:09 Intake and Output: 04/05/17 04/05/17 06:59 18:59 Intake Total 1090 Output Total 550 Balance 540 - Medications Medications: Current Medications Acetaminophen (Tylenol 650 Mg Supp) 650 mg [place] Q4 PRN PRN Reason: Fever >100.4 F Last Admin: 04/04/17 11:31 Dose: 650 mg Albuterol/Ipratropium (Duoneb 3 Mg/0.5 Mg (3 Ml) Ud) 3 ml INH RQ6 PRN PRN Reason: Shortness of Breath Atorvastatin Calcium (Lipitor) 40 mg PO HS [facility] Last Admin: 04/04/17 21:51 Dose: 40 mg Clopidogrel Bisulfate (Plavix) 75 mg PO DAILY [facility] Last Admin: 04/05/17 08:18 Dose: 75 mg Dipyridamole/Aspirin (Aggrenox 25-200 Mg) 1 ea PO Q12 [facility] Last Admin: 04/05/17 08:18 Dose: 1 ea Ergocalciferol (Drisdol 50,000 Intl Units Cap) 1 cap PO TUE [facility] Last Admin: 04/02/17 13:30 Dose: 1 cap Escitalopram Oxalate (Lexapro) 10 mg PO DAILY [facility] Last Admin: 04/05/17 08:18 Dose: 10 mg Famotidine (Pepcid) 20 mg PO BID [facility] Last Admin: 04/05/17 08:17 Dose: 20 mg Heparin Sodium (Porcine) (Heparin) 5,000 units SC Q12 [facility] PRN Reason: Protocol Last Admin: 04/05/17 08:18 Dose: 5,000 units Piperacillin Sod/Tazobactam (Sod 3.375 gm/ Sodium Chloride) 100 mls @ 100 mls/ hr IVPB Q6 [facility] PRN Reason: Protocol Last Admin: 04/05/17 12:07 Dose: 100 mls/hr Sodium Chloride 1,000 ml/ IV (SUPPLIES) 1,000 mls @ 70 mls/hr IV DAILY [facility] Last Admin: 04/05/17 08:19 Dose: 70 mls/hr Insulin Human Regular (Humulin R) 0 units SC 0600,2100 [facility] PRN Reason: Protocol Last Admin: 04/05/17 05:41 Dose: Not Given Labetalol HCl (Trandate) 50 mg PO Q8 [facility] Last Admin: 04/05/17 05:40 Dose: 50 mg Lacosamide (Vimpat) 150 mg PO Q12 [facility] Last Admin: 04/05/17 08:17 Dose: 150 mg Metformin HCl (Glucophage) 500 mg PO DAILYWM [facility] Last Admin: 04/05/17 08:18 Dose: 500 mg Modafinil (Provigil) 100 mg PO DAILY [facility] Last Admin: 04/05/17 08:17 Dose: 100 mg Sitagliptin Phosphate (Januvia) 25 mg PO DAILY [facility] Last Admin: 04/05/17 08:18 Dose: 25 mg Tamsulosin HCl (Flomax) 0.4 mg PO HS [facility] Last Admin: 04/04/17 21:51 Dose: 0.4 mg - Labs Labs: - Additional Findings Additional findings: - Constitutional Appears: No Acute Distress, better today - Eye Exam Eye Exam: EOMI - ENT Exam ENT Exam: Normal Oropharynx - Neck Exam Neck exam: Positive for: Full Rom Additional comments: supple - Respiratory Exam Respiratory Exam: NORMAL BREATHING PATTERN Additional comments: no wheezing no crackles - Cardiovascular Exam Cardiovascular Exam: RRR, +S1, +S2 - GI/Abdominal Exam GI & Abdominal Exam: Normal Bowel Sounds, Soft Additional comments: NT, ND - Extremities Exam Extremities exam: Positive for: normal inspection - Neurological Exam Neurological exam: Alert Additional comments: left Hemiplegia Laboratory Results - last 72 hr 04/02/17 04/02/17 04/03/17 16:38 20:51 06:47 WBC RBC Hgb Hct MCV MCH MCHC RDW Plt Count MPV Neut % (Auto) Lymph % (Auto) [place] % (Auto) Eos % (Auto) Baso % (Auto) Neut # Lymph # [place] # Eos # Baso # Sodium Potassium Chloride Carbon Dioxide Anion Gap BUN Creatinine Est GFR ( Amer) Est GFR (Non-Af Amer) POC Glucose (mg/dL) 117 H 143 H 145 H Random Glucose Calcium Total Bilirubin AST ALT Alkaline Phosphatase Total Protein Albumin Globulin Albumin/Globulin Ratio Urine Color Urine Clarity Urine pH Ur Specific [place] Urine Protein Urine Glucose (UA) Urine Ketones Urine Blood Urine Nitrate Urine Bilirubin Urine Urobilinogen Ur Leukocyte Esterase Urine RBC (Auto) Urine Microscopic WBC Ur Squamous Epith Cells Urine Yeast (Budding) 04/03/17 04/03/17 04/04/17 18:32 21:01 00:00 WBC 11.8 H D RBC 4.55 Hgb 12.3 Hct 37.7 MCV 82.9 MCH 27.1 MCHC 32.6 L RDW 15.7 H Plt Count 256 MPV 7.4 Neut % (Auto) 80.2 H Lymph % (Auto) 10.3 L [place] % (Auto) 9.2 Eos % (Auto) 0.1 Baso % (Auto) 0.2 Neut # 9.5 H Lymph # 1.2 [place] # 1.1 H Eos # 0.0 Baso # 0.0 Sodium Potassium Chloride Carbon Dioxide Anion Gap BUN Creatinine Est GFR ( Amer) Est GFR (Non-Af Amer) POC Glucose (mg/dL) 167 H Random Glucose Calcium Total Bilirubin AST ALT Alkaline Phosphatase Total Protein Albumin Globulin Albumin/Globulin Ratio Urine Color Yellow Urine Clarity Cloudy Urine pH 6.0 Ur Specific [place] 1.026 Urine Protein 100 Urine Glucose (UA) Neg Urine Ketones Trace Urine Blood Large Urine Nitrate Negative Urine Bilirubin Negative Urine Urobilinogen 0.2-1.0 Ur Leukocyte Esterase Trace Urine RBC (Auto) 1924 H Urine Microscopic WBC 65 H Ur Squamous Epith Cells 2 Urine Yeast (Budding) Few H 04/04/17 04/04/17 04/04/17 00:00 05:16 05:25 WBC 12.7 H RBC 4.44 Hgb 12.3 Hct 37.4 MCV 84.1 MCH 27.6 MCHC 32.8 L RDW 15.7 H Plt Count 251 MPV 7.6 Neut % (Auto) 80.1 H Lymph % (Auto) 10.6 L [place] % (Auto) 8.9 Eos % (Auto) 0.1 Baso % (Auto) 0.3 Neut # 10.2 H Lymph # 1.3 [place] # 1.1 H Eos # 0.0 Baso # 0.0 Sodium 142 Potassium 4.0 Chloride 106 Carbon Dioxide 24 Anion Gap 16 BUN 23 H Creatinine 1.0 Est GFR ( Amer) > 60 Est GFR (Non-Af Amer) > 60 POC Glucose (mg/dL) 135 H Random Glucose 152 H Calcium 9.1 Total Bilirubin 0.6 AST 33 ALT 32 Alkaline Phosphatase 82 Total Protein 7.8 Albumin 4.1 Globulin 3.7 Albumin/Globulin Ratio 1.1 Urine Color Urine Clarity Urine pH Ur Specific [place] Urine Protein Urine Glucose (UA) Urine Ketones Urine Blood Urine Nitrate Urine Bilirubin Urine Urobilinogen Ur Leukocyte Esterase Urine RBC (Auto) Urine Microscopic WBC Ur Squamous Epith Cells Urine Yeast (Budding) 04/04/17 04/05/17 04/05/17 21:07 05:14 09:03 WBC 9.6 RBC 4.13 L Hgb 11.5 L Hct 34.7 L MCV 84.1 MCH 27.8 MCHC 33.0 RDW 16.3 H Plt Count 273 MPV 8.0 Neut % (Auto) 79.2 H Lymph % (Auto) 11.9 L [place] % (Auto) 8.1 Eos % (Auto) 0.6 Baso % (Auto) 0.2 Neut # 7.6 H Lymph # 1.1 [place] # 0.8 Eos # 0.1 Baso # 0.0 Sodium Potassium Chloride Carbon Dioxide Anion Gap BUN Creatinine Est GFR ( Amer) Est GFR (Non-Af Amer) POC Glucose (mg/dL) 134 H 114 H Random Glucose Calcium Total Bilirubin AST ALT Alkaline Phosphatase Total Protein Albumin Globulin Albumin/Globulin Ratio Urine Color Urine Clarity Urine pH Ur Specific [place] Urine Protein Urine Glucose (UA) Urine Ketones Urine Blood Urine Nitrate Urine Bilirubin Urine Urobilinogen Ur Leukocyte Esterase Urine RBC (Auto) Urine Microscopic WBC Ur Squamous Epith Cells Urine Yeast (Budding) Microbiology 04/03/17 18:32 Urine,Catheterized Urine Culture - Final Escherichia Coli 04/03/17 16:05 Blood Blood Culture - Preliminary NO GROWTH AFTER 24 HOURS 04/03/17 16:05 Blood Blood Culture - Preliminary NO GROWTH AFTER 24 HOURS Assessment and Plan (1) Generalized weakness Status: Acute (2) Aphasia S/P CVA Status: Acute (3) Dysphasia following cerebrovascular accident (CVA) Status: Acute (4) Fever Status: Acute (5) Leucocytosis Status: Acute - Assessment and Plan (Free Text) Assessment: A/P- 61 year old male with h/o Gliobalstoma few years ago s/p chemo and radiation who was admitted with weakness and resp difficulty 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 pt. s/p CVA and has left hemiplagia and dysohagia and was found to have new onset fever yesterday. the source of the fever could be either from the renae cath vs pneumonitis secondary to aspiration specially since pt. has trouble swallowing. blood cx- negative UA- negative Urine cx- e.coli pansensitive ( sens to zosyn) cxr- ? right hilar patchy opacity as per report. Plan- continue with with IV zosyn for e.coli UTI and pneumonitis.day #2. advise strict aspiration precautions. monitor temp and wbc.
[2017-04-06] MEDS: Piperacillin/Tazobact 3.375 GM in Sodium Chloride 0.9% 100 ML IVPB SCH ×4 (06:33→23:25)
[2017-04-06] MEDS: Insulin Regular 100 units/ml SC SCH ×2 (06:35→21:37)
[2017-04-06] MEDS: Aspirin-Dipyridamole 200-25 mg ER Cap PO SCH ×2 (08:46→21:41)
[2017-04-06] MEDS: Lacosamide 50 MG Tab PO SCH ×2 (08:50→21:41)
--- NOTE | 2017-04-06 14:25 | MRI ---
PROCEDURE: MRI BRAIN WITHOUT CONTRAST HISTORY: Recurrent stroke COMPARISON: Comparison made with the CT scan and MRI of the brain dated 04/04/2017 hand 03/27/2017 respectively. TECHNIQUE: Multiplanar, multisequence MR images of the brain were obtained without intravenous contrast enhancement. FINDINGS: HEMORRHAGE: No acute parenchymal, subarachnoid or extra-axial hemorrhage. DWI: Again noted is a late subacute infarct in the right mid and inferior indu. Note that the infarct appears to have increased in size slightly; raising the possibility of recurrent acute infarct in this location. Clinical correlation recommended. In additional of late subacute infarct in the left internal capsule has diminished in size slightly. No additional acute infarcts are identified. . BRAIN PARENCHYMA: Re- demonstrated are partially cystic encephalomalacia changes left temporal lobe with ex vacuo dilatation of the left lateral ventricle, particularly the left temporal horn and left atrium. . Chronic infarct changes also involve the left basal ganglia. Moderate diffuse/ confluent chronic white matter ischemic changes are also seen extending peripherally into the deep and subcortical white matter of both cerebral hemispheres. Multiple more discrete chronic chronic infarct changes seen within the deep and subcortical white matter and both basal nuclei. Wallerian degeneration of the left cerebral peduncle again noted. . . Moderate generalized volume loss not withstanding the aforementioned encephalomalacia and vacuo dilatation of the ventricular system as above. VENTRICLES: Unremarkable. No hydrocephalus. As above. No obstructive hydrocephalus. CRANIUM: Unremarkable. ORBITS: Orbits and contents grossly unremarkable. . PARANASAL SINUSES/MASTOIDS: Mild mucosal thickening noted within the ethmoid air complex extending superiorly into the frontal sinus. There is also mild mucosal thickening within both maxillary antra. VASCULAR SYSTEM: Visualized major vascular flow voids at skull base are patent. OTHER FINDINGS: None. IMPRESSION: No acute intracranial hemorrhage. Re- demonstrated are late subacute infarct changes and the right mid and inferior indu slightly increased in size from prior study ; raising the possibility of an additional small acute infarct in this same location. Clinical correlation recommended. . Small late subacute infarct left internal capsule slightly decreased in size from prior study. Re- demonstrated is cystic encephalomalacia left temporal lobe consistent with old infarct involving temporal branches of the left MCA. There also chronic infarct changes in the left basal ganglia. Moderate to significant diffuse/confluent chronic white matter ischemic changes with multiple more discrete deep and subcortical white matter and bilateral basal nuclei lacunar type infarcts. . Ex vacuo dilatation left lateral ventricle, particularly the left temporal horn and left atrium. Moderate generalized volume loss. Moderate to significant volume loss of with what layering degeneration of the left cerebral peduncle. These findings were discussed with Dr. Quezada at approximately 2:18 p.m. with written down and read back verification.
[2017-04-07] MEDS: Insulin Regular 100 units/ml SC SCH ×2 (06:04→21:51)
[2017-04-07] MEDS: Piperacillin/Tazobact 3.375 GM in Sodium Chloride 0.9% 100 ML IVPB SCH ×4 (06:06→23:53)
[2017-04-07] MEDS: Lacosamide 50 MG Tab PO SCH ×2 (08:28→22:11)
[2017-04-07] MEDS: Aspirin-Dipyridamole 200-25 mg ER Cap PO SCH ×2 (08:29→22:07)
[2017-04-07] MEDS ORDERED: Albuterol-Ipratrop 3 mg / 0.5 (3 ml) UD INH PRN (18:24)
[2017-04-08] MEDS: Piperacillin/Tazobact 3.375 GM in Sodium Chloride 0.9% 100 ML IVPB SCH ×4 (06:25→23:26)
[2017-04-08] MEDS: Insulin Regular 100 units/ml SC SCH ×2 (06:30→21:20)
--- NOTE | 2017-04-08 07:19 | PN ---
DAILY PROGRESS NOTE DATE: 04/06/2017 SUBJECTIVE: The patient was seen, 04/06/2017. He was not in any cardiopulmonary distress. OBJECTIVE: VITAL SIGNS: Blood pressure was 164/98, temperature 99.2, respiratory rate 20 and pulse 72. HEENT: Pupils equal, reactive to light. Normal-appearing mucosa of the conjunctivae, oropharynx and nasal membrane mucosa. NECK: Supple. No JVD. No carotid bruit. No lymph node. No thyromegaly. CHEST AND LUNGS: Bilateral symmetrical expansion. Good air exchange. No rales. No rhonchi. CARDIOVASCULAR SYSTEM: PMI not localized. S1, S2. No additional sounds. ABDOMEN: Normoactive bowel sounds. No tenderness. No organomegaly. No masses. EXTREMITIES: No cyanosis, no clubbing, no edema. TERRITORY SALES MANAGER MEDICAL: Alert, awake, oriented x3. No neurological deficit could be appreciated. ASSESSMENT: 1. Cerebrovascular accident with left-sided hemiplegia. 2. Hypertension. 3. Type 2 diabetes mellitus. PLAN: Continue current physical therapy and current treatment and continue antibiotics treating urinary tract infection. [facility] MD Ezio
[2017-04-08] MEDS: Aspirin-Dipyridamole 200-25 mg ER Cap PO SCH ×2 (08:14→21:17)
[2017-04-08] MEDS: Lactobacillus Acidophilus 500 MU Cap PO SCH ×2 (08:17→17:13)
--- NOTE | 2017-04-08 09:00 | PN ---
DATE: 04/05/2017 SUBJECTIVE: He is not in any cardiopulmonary distress. The patient is cooperative with physical therapy. PHYSICAL EXAMINATION: VITAL SIGNS: No fever, temperature 97.9, blood pressure 147/81, pulse 85, respiratory rate 20. HEENT: Pupils equal and reactive to light. Normal-appearing mucosa of the conjunctivae, oropharynx and nasal membrane mucosa. NECK: Supple. No JVD. No carotid bruit. No lymph node. No thyromegaly. CHEST AND LUNGS: Bilateral symmetrical expansion. Good air exchange. No rales. No rhonchi. CARDIOVASCULAR SYSTEM: PMI not localized. S1, S2. No additional sounds. ABDOMEN: Normoactive bowel sounds. No tenderness. No organomegaly. No masses. EXTREMITIES: No cyanosis, no clubbing, no edema. DATA CAPTURE CLERK: Alert, awake, oriented x2 with aphasia and left-sided hemiparesis. ASSESSMENT: CVA, hypertension, type 2 diabetes mellitus, urinary tract infection with E. coli. PLAN: Continue Zosyn and aspiration precautions. Continue current medications including IV fluid at night, so we will give the patient trial of discontinuing Michaels catheter. Les Holguin MD
[2017-04-08] MEDS: Lacosamide 50 MG Tab PO SCH ×2 (09:16→21:19)
--- NOTE | 2017-04-08 12:23 | CP.PCM.PN ---
Subjective - Date & Time of Evaluation Date of Evaluation: 04/08/17 Time of Evaluation: 14:00 - Subjective Subjective: ID note- Pt. seen and examined today while doing his PT session. Pt. doing much better, smiles and as per PT is doing much better as well. afebrile. Objective - Vital Signs/Intake and Output Vital Signs (last 24 hours): Temp Pulse Resp BP Pulse Ox 98.2 F 67 18 156/76 H 100 04/08/17 08:10 04/08/17 08:10 04/08/17 08:10 04/08/17 08:10 04/08/17 08:10 Intake and Output: 04/08/17 04/08/17 06:59 18:59 Intake Total 900 Output Total 750 Balance 150 - Medications Medications: Current Medications Acetaminophen (Tylenol 650 Mg Supp) 650 mg LA Q4 PRN PRN Reason: Fever >100.4 F Last Admin: 04/04/17 11:31 Dose: 650 mg Albuterol/Ipratropium (Duoneb 3 Mg/0.5 Mg (3 Ml) Ud) 3 ml INH RQ6 PRN PRN Reason: Shortness of Breath Albuterol/Ipratropium (Duoneb 3 Mg/0.5 Mg (3 Ml) Ud) 3 ml INH RQ6 PRN PRN Reason: Shortness of Breath Atorvastatin Calcium (Lipitor) 40 mg PO HS [facility] Last Admin: 04/07/17 22:08 Dose: 40 mg Clopidogrel Bisulfate (Plavix) 75 mg PO DAILY [facility] Last Admin: 04/08/17 08:14 Dose: 75 mg Dipyridamole/Aspirin (Aggrenox 25-200 Mg) 1 ea PO Q12 [facility] Last Admin: 04/08/17 08:14 Dose: 1 ea Ergocalciferol (Drisdol 50,000 Intl Units Cap) 1 cap PO TUE [facility] Last Admin: 04/02/17 13:30 Dose: 1 cap Escitalopram Oxalate (Lexapro) 10 mg PO DAILY [facility] Last Admin: 04/08/17 08:18 Dose: 10 mg Famotidine (Pepcid) 20 mg PO BID [facility] Last Admin: 04/08/17 08:14 Dose: 20 mg Heparin Sodium (Porcine) (Heparin) 5,000 units SC Q12 [facility] PRN Reason: Protocol Last Admin: 04/08/17 08:18 Dose: 5,000 units Piperacillin Sod/Tazobactam (Sod 3.375 gm/ Sodium Chloride) 100 mls @ 100 mls/ hr IVPB Q6 [facility] PRN Reason: Protocol Last Admin: 04/08/17 12:15 Dose: 100 mls/hr Sodium Chloride 1,000 ml/ IV (SUPPLIES) 1,000 mls @ 70 mls/hr IV DAILY [facility] Last Admin: 04/07/17 17:42 Dose: 70 mls/hr Insulin Human Regular (Humulin R) 0 units SC 0600,2100 [facility] PRN Reason: Protocol Last Admin: 04/08/17 06:30 Dose: Not Given Labetalol HCl (Trandate) 50 mg PO Q8 [facility] Last Admin: 04/08/17 06:29 Dose: 50 mg Lacosamide (Vimpat) 150 mg PO Q12 [facility] Last Admin: 04/08/17 09:16 Dose: 150 mg Lactobacillus Acidophilus (Bacid Acidophilus) 1 cap PO BID [facility] Last Admin: 04/08/17 08:17 Dose: 1 cap Metformin HCl (Glucophage) 500 mg PO DAILYWM [facility] Last Admin: 04/08/17 08:14 Dose: 500 mg Modafinil (Provigil) 100 mg PO DAILY [facility] Last Admin: 04/08/17 08:19 Dose: Not Given Sitagliptin Phosphate (Januvia) 25 mg PO DAILY [facility] Last Admin: 04/08/17 08:15 Dose: 25 mg Tamsulosin HCl (Flomax) 0.4 mg PO HS [facility] Last Admin: 04/07/17 22:07 Dose: 0.4 mg - Labs Labs: - Additional Findings Additional findings: - Constitutional Appears: No Acute Distress, better today - Eye Exam Eye Exam: EOMI - ENT Exam ENT Exam: Normal Oropharynx - Neck Exam Neck exam: Positive for: Full Rom Additional comments: supple - Respiratory Exam Respiratory Exam: NORMAL BREATHING PATTERN Additional comments: no wheezing no crackles - Cardiovascular Exam Cardiovascular Exam: RRR, +S1, +S2 - GI/Abdominal Exam GI & Abdominal Exam: Normal Bowel Sounds, Soft Additional comments: NT, ND - Extremities Exam Extremities exam: Positive for: normal inspection - Neurological Exam Neurological exam: Alert Additional comments: left Hemiplegia Laboratory Results - last 72 hr 04/05/17 04/06/17 04/06/17 21:29 05:58 20:48 POC Glucose (mg/dL) 152 H 136 H 158 H 04/07/17 04/07/17 04/08/17 05:42 21:06 05:26 POC Glucose (mg/dL) 125 H 150 H 126 H Microbiology 04/03/17 16:05 Blood Blood Culture - Preliminary NO GROWTH AFTER 4 DAYS 04/03/17 16:05 Blood Blood Culture - Preliminary NO GROWTH AFTER 4 DAYS 04/03/17 18:32 Urine,Catheterized Urine Culture - Final Escherichia Coli Assessment and Plan (1) Generalized weakness Status: Acute (2) Aphasia S/P CVA Status: Acute (3) Dysphasia following cerebrovascular accident (CVA) Status: Acute (4) Fever Status: Acute (5) Leucocytosis Status: Acute - Assessment and Plan (Free Text) Assessment: A/P- 61 year old male with h/o Gliobalstoma few years ago s/p chemo and radiation who was admitted with weakness and resp difficulty 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 clinically better. afebrile blood cx- negative UA- trace LE Urine cx- e.coli pansensitive ( sens to zosyn) cxr- ? right hilar patchy opacity as per report. Plan- continue with with IV zosyn for e.coli UTI and pneumonitis.day #4. advise strict aspiration precautions. advise if possible to d/c the renae cath. check repeat UA and urine cx.
--- NOTE | 2017-04-08 20:25 | CP.PCM.PN ---
Subjective - Date & Time of Evaluation Date of Evaluation: 04/08/17 Time of Evaluation: 20:24 - Subjective Subjective: Patient doing better today participating in therapies family is very supportive and with patient at all times team conf is set for tomorrow and will discuss progress and discharge plans with the patient and family Objective - Vital Signs/Intake and Output Vital Signs (last 24 hours): Temp Pulse Resp BP Pulse Ox 97.7 F 65 20 146/76 99 04/08/17 19:47 04/08/17 19:47 04/08/17 19:47 04/08/17 19:47 04/08/17 19:47 Intake and Output: 04/08/17 04/09/17 18:59 06:59 Intake Total 540 Output Total 800 Balance -260 - Medications Medications: Current Medications Acetaminophen (Tylenol 650 Mg Supp) 650 mg [place] Q4 PRN PRN Reason: Fever >100.4 F Last Admin: 04/04/17 11:31 Dose: 650 mg Albuterol/Ipratropium (Duoneb 3 Mg/0.5 Mg (3 Ml) Ud) 3 ml INH RQ6 PRN PRN Reason: Shortness of Breath Albuterol/Ipratropium (Duoneb 3 Mg/0.5 Mg (3 Ml) Ud) 3 ml INH RQ6 PRN PRN Reason: Shortness of Breath Atorvastatin Calcium (Lipitor) 40 mg PO HS [facility] Last Admin: 04/07/17 22:08 Dose: 40 mg Clopidogrel Bisulfate (Plavix) 75 mg PO DAILY [facility] Last Admin: 04/08/17 08:14 Dose: 75 mg Dipyridamole/Aspirin (Aggrenox 25-200 Mg) 1 ea PO Q12 [facility] Last Admin: 04/08/17 08:14 Dose: 1 ea Ergocalciferol (Drisdol 50,000 Intl Units Cap) 1 cap PO TUE [facility] Last Admin: 04/02/17 13:30 Dose: 1 cap Escitalopram Oxalate (Lexapro) 10 mg PO DAILY [facility] Last Admin: 04/08/17 08:18 Dose: 10 mg Famotidine (Pepcid) 20 mg PO BID [facility] Last Admin: 04/08/17 17:24 Dose: 20 mg Heparin Sodium (Porcine) (Heparin) 5,000 units SC Q12 [facility] PRN Reason: Protocol Last Admin: 04/08/17 08:18 Dose: 5,000 units Piperacillin Sod/Tazobactam (Sod 3.375 gm/ Sodium Chloride) 100 mls @ 100 mls/ hr IVPB Q6 [facility] PRN Reason: Protocol Last Admin: 04/08/17 17:13 Dose: 100 mls/hr Sodium Chloride 1,000 ml/ IV (SUPPLIES) 1,000 mls @ 70 mls/hr IV DAILY [facility] Last Admin: 04/08/17 17:23 Dose: 70 mls/hr Insulin Human Regular (Humulin R) 0 units SC 0600,2100 [facility] PRN Reason: Protocol Last Admin: 04/08/17 06:30 Dose: Not Given Labetalol HCl (Trandate) 50 mg PO Q8 [facility] Last Admin: 04/08/17 14:13 Dose: 50 mg Lacosamide (Vimpat) 150 mg PO Q12 [facility] Last Admin: 04/08/17 09:16 Dose: 150 mg Lactobacillus Acidophilus (Bacid Acidophilus) 1 cap PO BID [facility] Last Admin: 04/08/17 17:13 Dose: 1 cap Metformin HCl (Glucophage) 500 mg PO DAILYWM [facility] Last Admin: 04/08/17 08:14 Dose: 500 mg Modafinil (Provigil) 100 mg PO DAILY [facility] Last Admin: 04/08/17 08:19 Dose: Not Given Sitagliptin Phosphate (Januvia) 25 mg PO DAILY [facility] Last Admin: 04/08/17 08:15 Dose: 25 mg Tamsulosin HCl (Flomax) 0.4 mg PO HS [facility] Last Admin: 04/07/17 22:07 Dose: 0.4 mg - Labs Labs: 04/05/17 09:03 04/04/17 00:00
--- NOTE | 2017-04-08 21:06 | PN ---
DATE: 04/08/2017 SUBJECTIVE: The patient is seen today, 04/08/2017. He is not in any cardiopulmonary distress. The patient was cooperative to physical therapy and occupational therapy. PHYSICAL EXAMINATION: VITAL SIGNS: Blood pressure 146/76, temperature 97.7, respiratory rate 20, and pulse 65. HEENT: Pupils equal, reactive to light. Normal-appearing mucosa of the conjunctivae, oropharynx, and nasal membrane mucosa. NECK: Supple. No JVD. No carotid bruit. No lymph node. No thyromegaly. CHEST AND LUNGS: Bilateral symmetrical expansion. Good air exchange. No rales. No rhonchi. CARDIOVASCULAR SYSTEM: PMI not localized. S1, S2. No additional sounds. ABDOMEN: Normoactive bowel sounds. No tenderness. No organomegaly. No masses. EXTREMITIES: No cyanosis. No clubbing. No edema. CENTRAL NERVOUS SYSTEM: Alert, awake, oriented x2. The patient has left-sided hemiplegia. ASSESSMENT: 1. Cerebrovascular accident with left-sided hemiplegia and subtle aspiration. 2. Hypertension. 3. Type 2 diabetes mellitus. PLAN: Continue physical therapy and occupational therapy. Continue current medications. The patient is for ABBY tomorrow by Cardiology. Les Holguin MD
[2017-04-09] MEDS: Piperacillin/Tazobact 3.375 GM in Sodium Chloride 0.9% 100 ML IVPB SCH ×4 (05:12→23:20)
[2017-04-09] MEDS: Insulin Regular 100 units/ml SC SCH ×2 (05:46→21:45)
[2017-04-09] MEDS: Lactobacillus Acidophilus 500 MU Cap PO SCH ×2 (08:30→17:23)
[2017-04-09] MEDS: Aspirin-Dipyridamole 200-25 mg ER Cap PO SCH ×2 (08:30→21:29)
[2017-04-09] MEDS: Lacosamide 50 MG Tab PO SCH ×2 (08:32→21:45)
--- NOTE | 2017-04-09 13:19 | PSY.TMCNF ---
Nursing - Vital Signs Vital Signs (Last 8 hours): Vital Signs 04/09/17 04/09/17 04/09/17 05:46 08:03 09:21 Temperature 97.7 F 97.7 F Pulse Rate 62 60 60 Respiratory 22 22 Rate Blood Pressure 139/76 168/74 H 168/74 H O2 Sat by Pulse 98 Oximetry Pain: 0 - Precautions: Precautions: Aspiration - Medications/Other Issues Comment: Pt is having ABBY done over at today. Still on IV ABT Zosyn q6H. on nocturnal IVF 0.9% NSS at 70ml/hr from 6pm to 8am - Consults Comment: Dr. Weiss, Dr. Richards, Dr. Quezada, Dr. Rain, Dr. Sen - Toileting Toileting: Dependent - Bladder Management Voiding Method: Indwelling Catheter Bladder Management: Dependent Frequency of Accidents: 0 - Bowel Management Bowel Pattern: Normal Bowel Management: Dependent Frequency of Accidents: x 2 - Transfers Transfers: Dependent - ADL's ADL's: Dependent - Patient/Family Teaching Comments: Care post CVA and safety precautions - Goals/Time Frame Comments: Per multidisciplinary care plans and goals - Provider Provider: Nelly CUELLARN RN CRRN Physical Therapy - Bed Mobility Bed Mobility: Minimal Assistance, Moderate Assistance, Maximum Assistance Comment: rolling R: mod A. rolling L: min A. supine to sit: max A - Transfers Wheelchair to Mat: Verbal Cues, Maximum Assistance Sit to Stand: Verbal Cues, Moderate Assistance - Ambulation Level of Assistance: Maximum Assistance Distance (ft.): 10 Assistive Devices: Wide base quad cane Orthoses: L DF wrap. SURJIT tijerina Comment: -x 2 trials with R wall bar. -x 2 trials with WBQC (RUE). -R wall bar , Surjit tijerina, close WC follow, LLE dorsiflexion wrap. -step-to pattern. - total A to progress and to stabilize LLE, assistance to weight shift and facilitation anterior and posterior for trunk extension and hip extension for upright stance. -verbal cues for forward gaze with use of mirror to facilitate upright posture and self-awareness. -able to take larger steps with RLE. - requires assistance to progress and cueing to stabilize WBQC during stance - Stair Negotiation Stairs: Level of Assistance: Not Tested - Standing Balance Static Stand: Moderate Assistance Dynamic Stand: Maximal Assistance - Pain Pain (assessed during therapy session): 0 - Insight/Carryover Insight/Carryover: Fair - Patient/Family Education Comment: Recovery after CVA, compensatory strategies for ADLs and ADL transfers , requires continued education - Assessment/Plan Assessment: Pt requires continued OT services to address inattention, LUE decreased AROM/strength/coordination, impaired sitting/standing balance, apraxia , and decreased endurance to maximize independence with ADLs and functional - Goals Timeframe: 1 week Goals: MAX A UE Dressing. MAX A LE dressing. MIN A grooming. MIN A toilet txfer. MAX A toileting - Provider Therapist: Tina TreadwellPT, DPT License Number: [id number] Occupational Therapy - Arousal/Attention/Orientation Level of Consciousness: Awake Patient Orientation: Person - ADL/IADL Self Feeding: Maximum Assistance Grooming: Maximum Assistance Dressing-Upper Extremity: Dependent Dressing-Lower Extremity: Dependent - Sitting Balance Static Sitting: Contact Guard Assist Dynamic Sitting: Maximal Assistance - Transfers Wheelchair to Bed Transfers: Verbal Cues, Set-up Help, Moderate Assistance Toilet Transfers: Verbal Cues, Set-up Help, Moderate Assistance - Wheelchair Management Level of Assistance: Dependent - Upper Extremity Status Right Upper Extremity Comment: ROM WFL, MMT grossly 4/5 Left Upper Extremity Comment: L anterior glenohumeral subluxation. PROM WFL with exception to shoulder flexion approx 120* - Pain Pain (assessed during therapy session): 0 - Insight/Carryover Insight/Carryover: Fair - Patient/Family Education Comment: Recovery after CVA, compensatory strategies for ADLs and ADL transfers , requires continued education - Assessment/Plan Assessment: Pt requires continued OT services to address inattention, LUE decreased AROM/strength/coordination, impaired sitting/standing balance, apraxia , and decreased endurance to maximize independence with ADLs and functional - Goals Timeframe: 1 week Goals: MAX A UE Dressing. MAX A LE dressing. MIN A grooming. MIN A toilet txfer. MAX A toileting - Provider Therapist: Tashia Borden License Number: [id number] Speech Therapy - Consult Information Patient on Program: No Medical Diagnosis: CVA Treatment Diagnosis: severe dysarthria. moderate receptive and expressive aphasia. moderate-severe oropharyngeal dysphagia - Assessment Expressive Language Impairment: Moderate Receptive Language Impairment: Moderate Speech/Articulation Impairment: Severe Dysphagia/Swallowing Impairment: Severe - Plan Assessment: Pt requires continued OT services to address inattention, LUE decreased AROM/strength/coordination, impaired sitting/standing balance, apraxia , and decreased endurance to maximize independence with ADLs and functional - Provider Therapist: Lillie Winston License Number: [id number] Recreational Therapy - Participation Participation: Participates in Individual and/or Group Sessions - Attendance Attendance: Daily - Activities Leisure Activities: music - Socialization Level of Socialization: Requires 1:1 guidance to respond, Minimal initiation of interaction to request basic needs, Minimal or no response, Socialization severely limited - Diversional Time Diversional Time: television, music - Assessment Assessment/Plan: Pt requires continued OT services to address inattention, LUE decreased AROM/strength/coordination, impaired sitting/standing balance, apraxia , and decreased endurance to maximize independence with ADLs and functional - Provider Therapist: Savanna Weldon, ASSIST[employer] #[id number] Nutrition - Current Diet Current Diet/ Supplement/ Feedings: Moderate consistent CHO 2 gram Na pureed honey thick liquids - Appetite Percent Meal Consumed: 75-100% - Comments Comments: Care post CVA and safety precautions - Assessment/Goals/Time Frame Assessment/Goals/Time Frame: Pt is having ABBY done over at today. Still on IV ABT Zosyn q6H. on nocturnal IVF 0.9% NSS at 70ml/hr from 6pm to 8am - Provider Provider: Hannah Hopson RD Case Management - Discharge Plan Discharge Plan: Subacute care Rehabilitation Plan - Treatment Plan Treatment Plan: Physical Therapy, Occupational Therapy, Speech, Dietary, Patient /Family Education - Discharge Plan Estimated Date of Discharge: 04/25/17 Discharge to: Subacute
[2017-04-09] MEDS: Ergocalciferol 50,000 Intl Units Cap PO SCH (17:23)
--- NOTE | 2017-04-10 03:32 | PN ---
DATE: 04/09/2017 SUBJECTIVE: The patient is seen today, 04/09/2017. He is not in any cardiopulmonary distress, status post ABBY, which was normal. PHYSICAL EXAMINATION: VITAL SIGNS: Blood pressure is 168/74, temperature 97.4, respiratory rate 20 and pulse 60. HEENT: Pupils equal, reactive to light. Normal-appearing mucosa of the conjunctivae, oropharynx, and nasal membrane mucosa. NECK: Supple. No JVD. No carotid bruit. No lymph node. No thyromegaly. CHEST AND LUNGS: Bilateral symmetrical expansion. Good air exchange. No rales. No rhonchi. CARDIOVASCULAR SYSTEM: PMI not localized. S1, S2. No additional sounds. ABDOMEN: Normoactive bowel sounds. No tenderness. No organomegaly. No masses. EXTREMITIES: No cyanosis. No clubbing. No edema. CENTRAL NERVOUS SYSTEM: Alert, awake, oriented x2. The patient has aphasia as well as left-sided hemiplegia. ASSESSMENT: 1. Cerebrovascular accident with acute rehabilitation. 2. Hypertension. 3. Type 2 diabetes mellitus. PLAN: Continue current medications. We will do bladder training tonight to try removal of the Michaels catheter. The patient also was found to have groin rashes for which Lotrisone cream was ordered. Les Holguin MD
[2017-04-10] MEDS: Piperacillin/Tazobact 3.375 GM in Sodium Chloride 0.9% 100 ML IVPB SCH ×4 (05:42→23:56)
[2017-04-10] MEDS: Insulin Regular 100 units/ml SC SCH ×2 (06:45→21:38)
[2017-04-10] MEDS: Lactobacillus Acidophilus 500 MU Cap PO SCH ×2 (08:47→17:27)
[2017-04-10] MEDS: Lacosamide 50 MG Tab PO SCH ×2 (08:47→21:37)
[2017-04-10] MEDS: Aspirin-Dipyridamole 200-25 mg ER Cap PO SCH ×2 (08:48→21:34)
--- NOTE | 2017-04-10 14:18 | CP.PCM.PN ---
Subjective - Date & Time of Evaluation Date of Evaluation: 04/10/17 Time of Evaluation: 13:00 - Subjective Subjective: ID note- Pt. seen and examined today in acute rehab unit. pt. resting in bed but denies any complaints. as per nurse renae cath was removed earlier today and waiting to see if patient can void w/o problems. remains afebrile. Objective - Vital Signs/Intake and Output Vital Signs (last 24 hours): Temp Pulse Resp BP Pulse Ox 97.7 F 71 21 142/65 95 04/10/17 08:46 04/10/17 13:47 04/10/17 08:46 04/10/17 13:47 04/09/17 20:35 Intake and Output: 04/10/17 04/10/17 06:59 18:59 Intake Total 1140 Output Total 1200 Balance -60 - Medications Medications: Current Medications Acetaminophen (Tylenol 650 Mg Supp) 650 mg [place] Q4 PRN PRN Reason: Fever >100.4 F Last Admin: 04/04/17 11:31 Dose: 650 mg Albuterol/Ipratropium (Duoneb 3 Mg/0.5 Mg (3 Ml) Ud) 3 ml INH RQ6 PRN PRN Reason: Shortness of Breath Albuterol/Ipratropium (Duoneb 3 Mg/0.5 Mg (3 Ml) Ud) 3 ml INH RQ6 PRN PRN Reason: Shortness of Breath Atorvastatin Calcium (Lipitor) 40 mg PO HS [facility] Last Admin: 04/09/17 21:44 Dose: 40 mg Clopidogrel Bisulfate (Plavix) 75 mg PO DAILY [facility] Last Admin: 04/10/17 08:47 Dose: 75 mg Clotrimazole (Lotrimin 1% Cream) 1 applic TOP BID [facility] Last Admin: 04/10/17 08:49 Dose: 1 applic Dipyridamole/Aspirin (Aggrenox 25-200 Mg) 1 ea PO Q12 [facility] Last Admin: 04/10/17 08:48 Dose: 1 ea Ergocalciferol (Drisdol 50,000 Intl Units Cap) 1 cap PO TUE [facility] Last Admin: 04/09/17 17:23 Dose: 1 cap Escitalopram Oxalate (Lexapro) 10 mg PO DAILY [facility] Last Admin: 04/10/17 08:47 Dose: 10 mg Famotidine (Pepcid) 20 mg PO BID [facility] Last Admin: 04/10/17 08:48 Dose: 20 mg Heparin Sodium (Porcine) (Heparin) 5,000 units SC Q12 [facility] PRN Reason: Protocol Last Admin: 04/10/17 08:47 Dose: 5,000 units Piperacillin Sod/Tazobactam (Sod 3.375 gm/ Sodium Chloride) 100 mls @ 100 mls/ hr IVPB Q6 [facility] PRN Reason: Protocol Last Admin: 04/10/17 12:36 Dose: 100 mls/hr Sodium Chloride 1,000 ml/ IV (SUPPLIES) 1,000 mls @ 70 mls/hr IV DAILY [facility] Last Admin: 04/09/17 17:26 Dose: 70 mls/hr Insulin Human Regular (Humulin R) 0 units SC 0600,2100 [facility] PRN Reason: Protocol Last Admin: 04/10/17 06:45 Dose: Not Given Labetalol HCl (Trandate) 50 mg PO Q8 [facility] Last Admin: 04/10/17 13:47 Dose: 50 mg Lacosamide (Vimpat) 150 mg PO Q12 [facility] Last Admin: 04/10/17 08:47 Dose: 150 mg Lactobacillus Acidophilus (Bacid Acidophilus) 1 cap PO BID [facility] Last Admin: 04/10/17 08:47 Dose: 1 cap Metformin HCl (Glucophage) 500 mg PO DAILYWM [facility] Last Admin: 04/10/17 08:47 Dose: 500 mg Modafinil (Provigil) 100 mg PO DAILY [facility] Last Admin: 04/10/17 08:47 Dose: 100 mg Sitagliptin Phosphate (Januvia) 25 mg PO DAILY [facility] Last Admin: 04/10/17 08:48 Dose: 25 mg Tamsulosin HCl (Flomax) 0.4 mg PO HS [facility] Last Admin: 04/09/17 21:45 Dose: 0.4 mg - Labs Labs: - Additional Findings Additional findings: - Constitutional Appears: No Acute Distress, better today - Eye Exam Eye Exam: EOMI - ENT Exam ENT Exam: Normal Oropharynx - Neck Exam Neck exam: Positive for: Full Rom Additional comments: supple - Respiratory Exam Respiratory Exam: NORMAL BREATHING PATTERN Additional comments: no wheezing no crackles - Cardiovascular Exam Cardiovascular Exam: RRR, +S1, +S2 - GI/Abdominal Exam GI & Abdominal Exam: Normal Bowel Sounds, Soft Additional comments: NT, ND - Extremities Exam Extremities exam: Positive for: normal inspection - Neurological Exam Neurological exam: Alert Additional comments: left Hemiplegia Laboratory Results - last 72 hr 04/07/17 04/08/17 04/08/17 21:06 05:26 20:59 POC Glucose (mg/dL) 150 H 126 H 153 H 04/09/17 04/09/17 04/10/17 05:41 21:08 05:47 POC Glucose (mg/dL) 140 H 162 H 118 H Microbiology 04/03/17 16:05 Blood Blood Culture - Final NO GROWTH AFTER 5 DAYS 04/03/17 16:05 Blood Gram Stain - Final TEST NOT PERFORMED 04/03/17 16:05 Blood Blood Culture - Final NO GROWTH AFTER 5 DAYS 04/03/17 16:05 Blood Gram Stain - Final TEST NOT PERFORMED 04/03/17 18:32 Urine,Catheterized Urine Culture - Final Escherichia Coli Assessment and Plan (1) Generalized weakness Status: Acute (2) Aphasia S/P CVA Status: Acute (3) Dysphasia following cerebrovascular accident (CVA) Status: Acute (4) Fever Status: Acute (5) Leucocytosis Status: Acute - Assessment and Plan (Free Text) Assessment: A/P- 61 year old male with h/o Gliobalstoma few years ago s/p chemo and radiation who was admitted with weakness and resp difficulty 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 clinically better. afebrile blood cx- negative x 2 UA- trace LE Urine cx- e.coli pansensitive ( sens to zosyn) Plan- continue with with IV zosyn for e.coli UTI and pneumonitis.day #6 advise 1 more day of IV abx for UTI. advise strict aspiration precautions. all above d/w .
--- NOTE | 2017-04-10 17:53 | CP.PCM.PN ---
Subjective - Date & Time of Evaluation Date of Evaluation: 04/10/17 Time of Evaluation: 17:50 - Subjective Subjective: Patient seen and discussed with family, staff and Dr Holguin. He has made really good gains. He has been much more alert today. He has been doing much better in therapies. He was able to ambulate 30' with a WBQC and max A. He is able to push against my hand with some force in both the upper and lower extremities. He is an excellent acute rehab candidate. continue current care Objective - Vital Signs/Intake and Output Vital Signs (last 24 hours): Temp Pulse Resp BP Pulse Ox 97.7 F 74 21 142/65 99 04/10/17 08:46 04/10/17 16:35 04/10/17 08:46 04/10/17 13:47 04/10/17 16:35 Intake and Output: 04/10/17 04/10/17 06:59 18:59 Intake Total 1140 Output Total 1200 Balance -60 - Medications Medications: Current Medications Acetaminophen (Tylenol 650 Mg Supp) 650 mg MD Q4 PRN PRN Reason: Fever >100.4 F Last Admin: 04/04/17 11:31 Dose: 650 mg Albuterol/Ipratropium (Duoneb 3 Mg/0.5 Mg (3 Ml) Ud) 3 ml INH RQ6 PRN PRN Reason: Shortness of Breath Albuterol/Ipratropium (Duoneb 3 Mg/0.5 Mg (3 Ml) Ud) 3 ml INH RQ6 PRN PRN Reason: Shortness of Breath Atorvastatin Calcium (Lipitor) 40 mg PO HS [facility] Last Admin: 04/09/17 21:44 Dose: 40 mg Clopidogrel Bisulfate (Plavix) 75 mg PO DAILY [facility] Last Admin: 04/10/17 08:47 Dose: 75 mg Clotrimazole (Lotrimin 1% Cream) 1 applic TOP BID [facility] Last Admin: 04/10/17 17:28 Dose: 1 applic Dipyridamole/Aspirin (Aggrenox 25-200 Mg) 1 ea PO Q12 [facility] Last Admin: 04/10/17 08:48 Dose: 1 ea Ergocalciferol (Drisdol 50,000 Intl Units Cap) 1 cap PO TUE [facility] Last Admin: 04/09/17 17:23 Dose: 1 cap Escitalopram Oxalate (Lexapro) 10 mg PO DAILY [facility] Last Admin: 04/10/17 08:47 Dose: 10 mg Famotidine (Pepcid) 20 mg PO BID [facility] Last Admin: 04/10/17 17:28 Dose: 20 mg Heparin Sodium (Porcine) (Heparin) 5,000 units SC Q12 [facility] PRN Reason: Protocol Last Admin: 04/10/17 08:47 Dose: 5,000 units Piperacillin Sod/Tazobactam (Sod 3.375 gm/ Sodium Chloride) 100 mls @ 100 mls/ hr IVPB Q6 [facility] PRN Reason: Protocol Last Admin: 04/10/17 17:27 Dose: 100 mls/hr Sodium Chloride 1,000 ml/ IV (SUPPLIES) 1,000 mls @ 70 mls/hr IV DAILY [facility] Last Admin: 04/10/17 17:37 Dose: 70 mls/hr Insulin Human Regular (Humulin R) 0 units SC 0600,2100 [facility] PRN Reason: Protocol Last Admin: 04/10/17 06:45 Dose: Not Given Labetalol HCl (Trandate) 50 mg PO Q8 [facility] Last Admin: 04/10/17 13:47 Dose: 50 mg Lacosamide (Vimpat) 150 mg PO Q12 [facility] Last Admin: 04/10/17 08:47 Dose: 150 mg Lactobacillus Acidophilus (Bacid Acidophilus) 1 cap PO BID [facility] Last Admin: 04/10/17 17:27 Dose: 1 cap Metformin HCl (Glucophage) 500 mg PO DAILYWM [facility] Last Admin: 04/10/17 08:47 Dose: 500 mg Modafinil (Provigil) 100 mg PO DAILY [facility] Last Admin: 04/10/17 08:47 Dose: 100 mg Sitagliptin Phosphate (Januvia) 25 mg PO DAILY [facility] Last Admin: 04/10/17 08:48 Dose: 25 mg Tamsulosin HCl (Flomax) 0.4 mg PO HS [facility] Last Admin: 04/09/17 21:45 Dose: 0.4 mg - Labs Labs: 04/05/17 09:03 04/04/17 00:00
--- NOTE | 2017-04-10 22:53 | PN ---
DATE: 04/10/2017 SUBJECTIVE: He continued to improve regarding his level of awareness as well as physical ability to swallow. Michaels catheter was removed, but patient did not have the urge to urinate for the last 6 hours. PHYSICAL EXAMINATION: VITAL SIGNS: Blood pressure 128/75, temperature 97.7, respiratory rate 20, and pulse 74. HEENT: Pupils equal, reactive to light. Normal-appearing mucosa of the conjunctivae, oropharynx, and nasal membrane mucosa. NECK: Supple. No JVD. No carotid bruit. No lymph node. No thyromegaly. CHEST AND LUNGS: Bilateral symmetrical expansion. Good air exchange. No rales. No rhonchi. CARDIOVASCULAR SYSTEM: PMI not localized. S1, S2. No additional sounds. ABDOMEN: Normoactive bowel sounds. No tenderness. No organomegaly. No masses. EXTREMITIES: No cyanosis. No clubbing. No edema. CENTRAL NERVOUS SYSTEM: Alert, awake, oriented x2. Patient has left-sided hemiplegia. ASSESSMENT: 1. Cerebrovascular accident. 2. Hypertension. 3. Type 2 diabetes mellitus. 4. Urinary retention. PLAN: We will do bladder scan and if patient has more than 400 mL, we will place a Michaels catheter. Continue Flomax. Discussed at length with Dr. Weiss who will evaluate the patient on daily basis and we will see if the patient will need subacute rehabilitation. Les Holguin MD
[2017-04-11] MEDS: Piperacillin/Tazobact 3.375 GM in Sodium Chloride 0.9% 100 ML IVPB SCH ×3 (06:23→17:23)
[2017-04-11] MEDS: Insulin Regular 100 units/ml SC SCH ×2 (06:42→22:00)
[2017-04-11] MEDS: Lactobacillus Acidophilus 500 MU Cap PO SCH ×2 (09:13→17:21)
[2017-04-11] MEDS: Lacosamide 50 MG Tab PO SCH ×2 (09:13→22:20)
[2017-04-11] MEDS: Aspirin-Dipyridamole 200-25 mg ER Cap PO SCH ×2 (09:14→21:59)
[2017-04-11] MEDS: guaiFENesin 100 mg/5 ml Syrup UD PO SCH (21:58)
[2017-04-12] MEDS: Piperacillin/Tazobact 3.375 GM in Sodium Chloride 0.9% 100 ML IVPB SCH ×3 (00:03→17:10)
--- NOTE | 2017-04-12 00:37 | PN ---
DATE: 04/11/2017 SUBJECTIVE: The patient is seen today, 04/11/2017. He is more cooperative to physical therapy and occupational therapy. PHYSICAL EXAMINATION: VITAL SIGNS: Blood pressure 137/71, temperature 97.9, respiratory rate 20, and pulse 64. HEENT: Pupils equal, reactive to light. Normal-appearing mucosa of the conjunctivae, oropharynx and nasal membrane mucosa. NECK: Supple. No JVD. No carotid bruit. No lymph node. No thyromegaly. CHEST AND LUNGS: Bilateral symmetrical expansion. Good air exchange. No rales, no rhonchi. CARDIOVASCULAR: PMI not localized. S1, S2. No additional sounds. ABDOMEN: Normoactive bowel sounds. No tenderness. No organomegaly. No masses. EXTREMITIES: No cyanosis, clubbing, no edema. CENTRAL NERVOUS SYSTEMS: Alert, awake, oriented x2. The patient has slurred speech and left-sided hemiplegia. ASSESSMENT: Cerebrovascular accident, type 2 diabetes mellitus, hypertension, aspiration pneumonia, urinary tract infection. PLAN: Continue current antibiotics. Check blood work in the morning, and continue monitoring bladder scan and use external catheter overnight. Les Holguin MD
[2017-04-12] MEDS: Insulin Regular 100 units/ml SC SCH ×2 (06:15→21:10)
[2017-04-12 08:00] LABS: RBC URINE 1 /hpf (0-3); URINE BACTERIA RARE (<OCC); URINE BILIRUBIN NEGATIVE (NEGATIVE); URINE BLOOD NEGATIVE (NEGATIVE); URINE COLOR YELLOW (YELLOW); URINE GLUCOSE (UA) NEG (Normal); URINE KETONE NEGATIVE (NEGATIVE); URINE LEUKOCYTE ESTERASE NEG Leu/uL (Negative); URINE PROTEIN NEGATIVE (NEGATIVE); URINE UROBILINOGEN 0.2-1.0 mg/dL (0.2-1.0); WBC URINE < 1 /hpf (0-5)
[2017-04-12] MEDS: Aspirin-Dipyridamole 200-25 mg ER Cap PO SCH ×2 (08:31→21:10)
[2017-04-12] MEDS: Lactobacillus Acidophilus 500 MU Cap PO SCH ×2 (08:34→17:07)
[2017-04-12 09:55] LABS: BASO # 0.1 K/uL (0.0-0.2); BASO % 0.9 % (0.0-2.0); EOS # 0.2 K/uL (0.0-0.7); EOS % 3.6 % (0.0-4.0); HEMATOCRIT 36.7 % (35.0-51.0); LYMPH # 1.6 K/uL (1.0-4.3); LYMPH % 23.3 % (20.0-40.0); MEAN CELL VOLUME 84.5 fl (80.0-94.0); MEAN PLATELET VOLUME 7.5 fl (7.2-11.7); MONO # 0.5 K/uL (0.0-0.8); NEUT # 4.5 K/uL (1.8-7.0); NEUT % 65.2 % (50.0-75.0); NRBC % 0.1 % (0.0-0.0); RED CELL DISTRIBUTION WIDTH 16.6 % (11.5-14.5); WHITE BLOOD COUNT 6.9 K/uL (4.8-10.8)
[2017-04-12 10:18] LABS: ALB/GLOB RATIO 0.9 (1.0-2.1); ALKALINE PHOSPHATASE 76 U/L (38-126); ALT/SGPT 133 U/L (21-72); AST/SGOT 91 U/L (17-59); BILIRUBIN,TOTAL 0.5 mg/dl (0.2-1.3); BLOOD UREA NITROGEN 14 mg/dl (9-20); CALCIUM 8.2 mg/dL (8.4-10.2); CARBON DIOXIDE 23 mmol/L (22-30); CHLORIDE 103 mmol/L (98-107); GFR AFRICAN-AMERICAN > 60; GLUCOSE,RANDOM 191 mg/dL (75-110); POTASSIUM 4.1 MMOL/L (3.6-5.0); SODIUM 139 mmol/l (132-148); TOTAL PROTEIN 7.7 G/DL (6.3-8.2)
[2017-04-12] MEDS: guaiFENesin 100 mg/5 ml Syrup UD PO SCH ×2 (10:20→17:09)
[2017-04-12] MEDS: Lacosamide 50 MG Tab PO SCH ×2 (10:31→21:19)
--- NOTE | 2017-04-12 15:28 | CP.PCM.PN ---
Subjective - Date & Time of Evaluation Date of Evaluation: 04/12/17 Time of Evaluation: 15:27 - Subjective Subjective: Patient seen in room with present denies pain had a good day in PT remains awake much more and is an excellent acute rehab candidate continue current care Objective - Vital Signs/Intake and Output Vital Signs (last 24 hours): Temp Pulse Resp BP Pulse Ox 98.1 F 58 L 22 139/67 100 04/12/17 08:39 04/12/17 08:39 04/12/17 08:39 04/12/17 08:39 04/12/17 08:39 Intake and Output: 04/12/17 04/12/17 06:59 18:59 Intake Total 1000 Output Total 1000 Balance 0 - Medications Medications: Current Medications Acetaminophen (Tylenol 650 Mg Supp) 650 mg DC Q4 PRN PRN Reason: Fever >100.4 F Last Admin: 04/04/17 11:31 Dose: 650 mg Albuterol/Ipratropium (Duoneb 3 Mg/0.5 Mg (3 Ml) Ud) 3 ml INH RQ6 PRN PRN Reason: Shortness of Breath Albuterol/Ipratropium (Duoneb 3 Mg/0.5 Mg (3 Ml) Ud) 3 ml INH RQ6 PRN PRN Reason: Shortness of Breath Atorvastatin Calcium (Lipitor) 40 mg PO HS [facility] Last Admin: 04/11/17 21:59 Dose: 40 mg Clopidogrel Bisulfate (Plavix) 75 mg PO DAILY [facility] Last Admin: 04/12/17 08:32 Dose: 75 mg Clotrimazole (Lotrimin 1% Cream) 1 applic TOP BID [facility] Last Admin: 04/12/17 08:32 Dose: 1 applic Dipyridamole/Aspirin (Aggrenox 25-200 Mg) 1 ea PO Q12 [facility] Last Admin: 04/12/17 08:31 Dose: 1 ea Ergocalciferol (Drisdol 50,000 Intl Units Cap) 1 cap PO TUE [facility] Last Admin: 04/09/17 17:23 Dose: 1 cap Escitalopram Oxalate (Lexapro) 10 mg PO DAILY [facility] Last Admin: 04/12/17 08:31 Dose: 10 mg Famotidine (Pepcid) 20 mg PO BID [facility] Last Admin: 04/12/17 08:31 Dose: 20 mg Guaifenesin (Robitussin) 100 mg PO BID [facility] Last Admin: 04/12/17 10:20 Dose: 100 mg Heparin Sodium (Porcine) (Heparin) 5,000 units SC Q12 [facility] PRN Reason: Protocol Last Admin: 04/12/17 08:31 Dose: 5,000 units Sodium Chloride 1,000 ml/ IV (SUPPLIES) 1,000 mls @ 70 mls/hr IV DAILY [facility] Last Admin: 04/12/17 10:19 Dose: Not Given Insulin Human Regular (Humulin R) 0 units SC 0600,2100 [facility] PRN Reason: Protocol Last Admin: 04/12/17 06:15 Dose: Not Given Labetalol HCl (Trandate) 50 mg PO Q8 [facility] Last Admin: 04/12/17 06:04 Dose: 50 mg Lacosamide (Vimpat) 150 mg PO Q12 [facility] Last Admin: 04/12/17 10:31 Dose: 150 mg Lactobacillus Acidophilus (Bacid Acidophilus) 1 cap PO BID [facility] Last Admin: 04/12/17 08:34 Dose: 1 cap Metformin HCl (Glucophage) 500 mg PO DAILYWM [facility] Last Admin: 04/12/17 08:31 Dose: 500 mg Modafinil (Provigil) 100 mg PO DAILY [facility] Last Admin: 04/12/17 10:20 Dose: 100 mg Sitagliptin Phosphate (Januvia) 25 mg PO DAILY [facility] Last Admin: 04/12/17 08:32 Dose: 25 mg Tamsulosin HCl (Flomax) 0.4 mg PO HS [facility] Last Admin: 04/11/17 22:00 Dose: 0.4 mg - Labs Labs: 04/12/17 09:30 04/12/17 09:30
--- NOTE | 2017-04-13 01:17 | PN ---
DATE: 04/12/2017 DAILY PROGRESS NOTE SUBJECTIVE: The patient is seen today, 04/12/2017. He is not in any cardiopulmonary distress and he was seen in physical therapy. PHYSICAL EXAMINATION: VITAL SIGNS: Blood pressure 149/78, temperature 98.2, respiratory rate 20 and pulse 64. HEENT: Pupils equal, reactive to light. Normal-appearing mucosa of the conjunctivae, oropharyngeal and nasal membrane mucosa. NECK: Supple. No JVD. No carotid bruit. No lymph node. No thyromegaly. CHEST AND LUNGS: Bilateral symmetrical expansion. Good air exchange. No rales, no rhonchi. CARDIOVASCULAR SYSTEM: PMI not localized. S1, S2. No additional sounds. ABDOMEN: Normoactive bowel sounds. No tenderness. No organomegaly. No masses. EXTREMITIES: No cyanosis. No clubbing. No edema. CENTRAL NERVOUS SYSTEM: Alert, awake, oriented x2. The patient has left-sided hemiplegia. ASSESSMENT: Cerebrovascular accident, hypertension, type 2 diabetes mellitus, status post urinary retention. PLAN: Continue physical therapy and current medications. Antibiotics as per ID. Aspiration precaution. Stoney MD Ezio
[2017-04-13] MEDS: Insulin Regular 100 units/ml SC SCH ×2 (05:52→22:11)
[2017-04-13] MEDS: Aspirin-Dipyridamole 200-25 mg ER Cap PO SCH ×2 (08:42→21:43)
[2017-04-13] MEDS: Lactobacillus Acidophilus 500 MU Cap PO SCH ×2 (08:49→18:27)
[2017-04-13] MEDS: Lacosamide 50 MG Tab PO SCH ×2 (08:49→21:45)
[2017-04-13] MEDS: guaiFENesin 100 mg/5 ml Syrup UD PO SCH ×2 (08:50→16:47)
[2017-04-13] MEDS: Sodium Chloride 0.9% 1,000 ML IV SCH (18:34)
[2017-04-14] MEDS: Insulin Regular 100 units/ml SC SCH ×2 (07:00→21:48)
[2017-04-14] MEDS: Aspirin-Dipyridamole 200-25 mg ER Cap PO SCH ×2 (09:17→21:12)
[2017-04-14] MEDS: guaiFENesin 100 mg/5 ml Syrup UD PO SCH ×2 (09:18→16:23)
[2017-04-14] MEDS: Lacosamide 50 MG Tab PO SCH ×2 (09:48→21:11)
[2017-04-14] MEDS: Lactobacillus Acidophilus 500 MU Cap PO SCH ×2 (10:41→16:23)
[2017-04-14] MEDS: Sodium Chloride 0.9% 1,000 ML IV SCH (18:36)
--- NOTE | 2017-04-15 01:46 | PN ---
DATE: 04/13/2017 SUBJECTIVE: The patient was seen on 04/13/2017. PHYSICAL EXAMINATION: GENERAL: He was awake and alert. VITAL SIGNS: Blood pressure 130/70, temperature 97.2, respiratory rate 20, and pulse 70. HEENT: Pupils equal, reactive to light. Normal-appearing mucosa of the conjunctivae, oropharynx and nasal membrane mucosa. NECK: Supple. No JVD. No carotid bruit. No lymph node. No thyromegaly. CHEST/LUNGS: Bilateral symmetrical expansion. Good air exchange. No rales, no rhonchi. CARDIOVASCULAR SYSTEM: PMI not localized. S1, S2; no additional sounds. ABDOMEN: Normoactive bowel sounds. No tenderness. No organomegaly. No masses. EXTREMITIES: No cyanosis, no clubbing, no edema. PLUMBER AND TINNER: Alert, awake, oriented x2. The patient has left-sided hemiplegia. ASSESSMENT: Cerebrovascular accident, hypertension, type 2 diabetes mellitus, status post brain tumor with craniotomy and tumor excision. PLAN: Continue current physical therapy, and continue current medications and management. Accu-Cheks with insulin coverage as needed. Les Holguin MD
[2017-04-15] MEDS: Insulin Regular 100 units/ml SC SCH ×2 (06:14→21:38)
[2017-04-15] MEDS: Lacosamide 50 MG Tab PO SCH ×2 (09:11→21:39)
[2017-04-15] MEDS: Aspirin-Dipyridamole 200-25 mg ER Cap PO SCH ×2 (09:12→21:37)
[2017-04-15] MEDS: guaiFENesin 100 mg/5 ml Syrup UD PO SCH ×2 (09:14→17:11)
[2017-04-15] MEDS: Lactobacillus Acidophilus 500 MU Cap PO SCH ×2 (09:18→17:10)
[2017-04-15] MEDS: Sodium Chloride 0.9% 1,000 ML IV SCH (18:14)
--- NOTE | 2017-04-15 21:39 | PN ---
DATE: 04/15/2017 DAILY PROGRESS NOTE SUBJECTIVE: The patient is seen today, 04/15/2017. He is not in any cardiopulmonary distress. The patient was seen during physical therapy. PHYSICAL EXAMINATION: VITAL SIGNS: Blood pressure 139/79, temperature 97.9, respiratory rate 20 and pulse 65. HEENT: Pupils equal, reactive to light. Normal-appearing mucosa of the conjunctivae, oropharyngeal and nasal membrane mucosa. NECK: Supple. No JVD. No carotid bruit. No lymph node. No thyromegaly. CHEST AND LUNGS: Bilateral symmetrical expansion. Good air exchange. No rales. No rhonchi. CARDIOVASCULAR SYSTEM: PMI not localized. S1, S2. No additional sounds. ABDOMEN: Normoactive bowel sounds. No tenderness. No organomegaly. No masses. EXTREMITIES: No cyanosis. No clubbing. No edema. CENTRAL NERVOUS SYSTEM: Alert, awake, oriented x2. Left-sided hemiplegia. ASSESSMENT: Cerebrovascular accident, hypertension, type 2 diabetes mellitus. PLAN: Continue current medications and physical therapy and occupational therapy and speech therapy. Les Holguin MD
[2017-04-16] MEDS: Insulin Regular 100 units/ml SC SCH ×2 (06:28→21:17)
[2017-04-16] MEDS: Aspirin-Dipyridamole 200-25 mg ER Cap PO SCH ×2 (09:06→21:16)
[2017-04-16] MEDS: Ergocalciferol 50,000 Intl Units Cap PO SCH (09:07)
[2017-04-16] MEDS: guaiFENesin 100 mg/5 ml Syrup UD PO SCH ×2 (09:07→17:08)
[2017-04-16] MEDS: Lactobacillus Acidophilus 500 MU Cap PO SCH ×2 (09:11→17:07)
[2017-04-16] MEDS: Lacosamide 50 MG Tab PO SCH ×2 (11:42→21:19)
--- NOTE | 2017-04-16 13:19 | PSY.TMCNF ---
Nursing - Vital Signs Vital Signs (Last 8 hours): Vital Signs 04/16/17 04/16/17 06:24 08:00 Temperature 97.7 F Pulse Rate 70 74 Respiratory 20 Rate Blood Pressure 177/76 H 133/77 O2 Sat by Pulse 96 Oximetry Pain: 0 - Precautions: Precautions: Aspiration - Medications/Other Issues Comment: Pt at high nutritional risk. goals: 1. Pt to consume 75-100% meals- met, continue. 2. Blood glucoses to be between 70-180 mg/dl (met, continue)- met, continue. Follow-up due on 04/17/2017 - Consults Comment: Dr. Wiess, Dr. Richards, Dr. Quezada, Dr. Rain, Dr. Sen - Toileting Toileting: Dependent - Bladder Management Bladder Pattern: Normal, Incontinent Voiding Method: Toilet, Urinal, Diaper - Bowel Management Bowel Pattern: Normal Bowel Management: Dependent Frequency of Accidents: x 2 - Transfers Transfers: Dependent - ADL's ADL's: Dependent - Patient/Family Teaching Comments: Care post CVA and safety precautions - Goals/Time Frame Comments: Per multidisciplinary care plans and goals - Provider Provider: Nelly CUELLARN RN CRRN Physical Therapy - Bed Mobility Bed Mobility: Minimal Assistance, Moderate Assistance, Maximum Assistance Comment: rolling R: min A/CG. rolling L: CG. supine to sit: mod/min A - Transfers Wheelchair to Mat: Verbal Cues, Moderate Assistance, Maximum Assistance Sit to Stand: Verbal Cues, Moderate Assistance - Ambulation Level of Assistance: Moderate Assistance, Maximum Assistance Distance (ft.): 40 Assistive Devices: Wide base quad cane Orthoses: L Df wrap. L giv-sarthak sling Comment: -40 feet x 2 trials with WC follow. -LUE giv-sarthak sling and LLE dorsiflexion wrap. -verbal cues for sequencing of cane and RLE as well as for timing of stepping and positioning of WBQC on R side. -mod A for trunk control with some assistance for weight shifting and extension through shoulder girdle. -remains with total A for swing phase and stance phase on LLE. -able to utilize step to gait pattern - Stair Negotiation Stairs: Level of Assistance: Not Tested Comment: to be assessed as appropriate - Standing Balance Static Stand: Moderate Assistance Dynamic Stand: Maximal Assistance - Pain Pain (assessed during therapy session): 0 Comment: denies pain - Insight/Carryover Insight/Carryover: Fair - Patient/Family Education Comment: Recovery after CVA, compensatory strategies for ADLs and ADL transfers , requires continued education - Assessment/Plan Assessment: Pt requires continued OT services to address inattention, LUE decreased AROM/strength/coordination, impaired sitting/standing balance, apraxia , and decreased endurance to maximize independence with ADLs and functional - Goals Timeframe: 1 week Goals: MAX A UE Dressing. MAX A LE dressing. MIN A grooming. MIN A toilet txfer. MAX A toileting - Provider License Number: [id number] Occupational Therapy - Arousal/Attention/Orientation Level of Consciousness: Awake, Alert Patient Orientation: Person - ADL/IADL Self Feeding: Maximum Assistance Grooming: Maximum Assistance Bathing-Upper Extremity: Maximum Assistance Bathing-Lower Extremity: Dependent Dressing-Upper Extremity: Maximum Assistance Dressing-Lower Extremity: Dependent - Sitting Balance Static Sitting: Contact Guard Assist Dynamic Sitting: Moderate Assistance - Transfers Wheelchair to Bed Transfers: Verbal Cues, Set-up Help, Moderate Assistance Toilet Transfers: Verbal Cues, Set-up Help, Moderate Assistance Tub Transfers: Verbal Cues, Set-up Help, Dependent - Wheelchair Management Level of Assistance: Dependent - Upper Extremity Status Right Upper Extremity Comment: ROM WFL MMT 4/5 Left Upper Extremity Comment: L anterior glenohumeral subluxation. PROM WFL with exception to shoulder flexion approx 120*. active muscle at biceps/triceps /deltoid 2-/5 - Pain Pain (assessed during therapy session): 0 Comment: denies pain - Insight/Carryover Insight/Carryover: Fair - Patient/Family Education Comment: Recovery after CVA, compensatory strategies for ADLs and ADL transfers , requires continued education - Assessment/Plan Assessment: Pt requires continued OT services to address inattention, LUE decreased AROM/strength/coordination, impaired sitting/standing balance, apraxia , and decreased endurance to maximize independence with ADLs and functional - Goals Timeframe: 1 week Goals: MAX A UE Dressing. MAX A LE dressing. MIN A grooming. MIN A toilet txfer. MAX A toileting - Provider Therapist: Tashia Borden License Number: [id number] Speech Therapy - Consult Information Patient on Program: No Medical Diagnosis: CVA Treatment Diagnosis: -severe dysarthria. -moderate receptive/expressive aphasia. -moderate-severe oropharyngeal dysphagia - Assessment Expressive Language Impairment: Moderate Receptive Language Impairment: Moderate Speech/Articulation Impairment: Severe Dysphagia/Swallowing Impairment: Severe Comment: moderate-severe oropharyngeal dysphagia - Plan Assessment: Pt requires continued OT services to address inattention, LUE decreased AROM/strength/coordination, impaired sitting/standing balance, apraxia , and decreased endurance to maximize independence with ADLs and functional - Provider Therapist: Shivani Castaneda License Number: [id number] Recreational Therapy - Participation Participation: Participates in Individual and/or Group Sessions - Attendance Attendance: Daily - Activities Leisure Activities: music - Socialization Level of Socialization: Requires 1:1 guidance to respond, Minimal initiation of interaction to request basic needs, Minimal or no response, Socialization severely limited - Diversional Time Diversional Time: television, music - Assessment Assessment/Plan: Pt requires continued OT services to address inattention, LUE decreased AROM/strength/coordination, impaired sitting/standing balance, apraxia , and decreased endurance to maximize independence with ADLs and functional - Provider Therapist: Savanna Weldon, [employer] #[id number] Nutrition - Current Diet Current Diet/ Supplement/ Feedings: Pureed honey thick liquids ensure pudding 4 ounces 3 per day - Appetite Percent Meal Consumed: 75-100% - Comments Comments: Care post CVA and safety precautions - Assessment/Goals/Time Frame Assessment/Goals/Time Frame: Pt at high nutritional risk. goals: 1. Pt to consume 75-100% meals- met, continue. 2. Blood glucoses to be between 70-180 mg /dl (met, continue)- met, continue. Follow-up due on 04/17/2017 - Provider Provider: Hannah Hopson RD Case Management - Psychosocial Assessment Support Systems: Manuel Martinez (spouse)- [phone], Psychological Interventions/Needs: Patient alert with dysarthria and mild cognitive impairments Discharge Concerns: Patient continues to require max-total A overall Patient/Family Meeting: CM met with patient and rehab team Intervention/Goal/Outcome:: 1. [facility] at [facility]. 2. Tentative discharge date : 04/25/2017. 3. continued emotional support - Discharge Plan Discharge Plan: Subacute care - Provider Provider: MAGGY Elena, [employer] License Number: [id number] Rehabilitation Plan - Treatment Plan Treatment Plan: Physical Therapy, Occupational Therapy, Speech, Dietary, Patient /Family Education - Discharge Plan Estimated Date of Discharge: 04/25/17 Discharge to: Subacute
--- NOTE | 2017-04-16 13:37 | CP.PCM.PN ---
Subjective - Date & Time of Evaluation Date of Evaluation: 04/16/17 Time of Evaluation: 13:36 - Subjective Subjective: Patient seen in PT ambulating with 2 person max A very motivated no pain continues to greatly benefit from therapies and family is very happy even able to play dominos in Rec Objective - Vital Signs/Intake and Output Vital Signs (last 24 hours): Temp Pulse Resp BP Pulse Ox 97.7 F 74 20 133/77 96 04/16/17 08:00 04/16/17 08:00 04/16/17 08:00 04/16/17 08:00 04/16/17 08:00 Intake and Output: 04/16/17 04/16/17 06:59 18:59 Intake Total 940 Output Total 900 Balance 40 - Medications Medications: Current Medications Acetaminophen (Tylenol 650 Mg Supp) 650 mg IN Q4 PRN PRN Reason: Fever >100.4 F Last Admin: 04/04/17 11:31 Dose: 650 mg Albuterol/Ipratropium (Duoneb 3 Mg/0.5 Mg (3 Ml) Ud) 3 ml INH RQ6 PRN PRN Reason: Shortness of Breath Albuterol/Ipratropium (Duoneb 3 Mg/0.5 Mg (3 Ml) Ud) 3 ml INH RQ6 PRN PRN Reason: Shortness of Breath Atorvastatin Calcium (Lipitor) 40 mg PO HS [facility] Last Admin: 04/15/17 21:37 Dose: 40 mg Clopidogrel Bisulfate (Plavix) 75 mg PO DAILY [facility] Last Admin: 04/16/17 09:07 Dose: 75 mg Clotrimazole (Lotrimin 1% Cream) 1 applic TOP BID [facility] Last Admin: 04/16/17 09:07 Dose: 1 applic Dipyridamole/Aspirin (Aggrenox 25-200 Mg) 1 ea PO Q12 [facility] Last Admin: 04/16/17 09:06 Dose: 1 ea Ergocalciferol (Drisdol 50,000 Intl Units Cap) 1 cap PO TUE [facility] Last Admin: 04/16/17 09:07 Dose: 1 cap Escitalopram Oxalate (Lexapro) 10 mg PO DAILY [facility] Last Admin: 04/16/17 09:08 Dose: 10 mg Famotidine (Pepcid) 20 mg PO BID [facility] Last Admin: 04/16/17 09:06 Dose: 20 mg Guaifenesin (Robitussin) 100 mg PO BID [facility] Last Admin: 04/16/17 09:07 Dose: 100 mg Heparin Sodium (Porcine) (Heparin) 5,000 units SC Q12 [facility] PRN Reason: Protocol Last Admin: 04/16/17 09:08 Dose: 5,000 units Sodium Chloride (Sodium Chloride 0.9%) 1,000 mls @ 70 mls/hr IV DAILY@1900 [facility] Last Admin: 04/15/17 18:14 Dose: 70 mls/hr Insulin Human Regular (Humulin R) 0 units SC 0600,2100 [facility] PRN Reason: Protocol Last Admin: 04/16/17 06:28 Dose: Not Given Labetalol HCl (Trandate) 50 mg PO Q8 [facility] Last Admin: 04/16/17 06:24 Dose: 50 mg Lacosamide (Vimpat) 150 mg PO Q12 [facility] Last Admin: 04/16/17 11:42 Dose: 150 mg Lactobacillus Acidophilus (Bacid Acidophilus) 1 cap PO BID [facility] Last Admin: 04/16/17 09:11 Dose: 1 cap Metformin HCl (Glucophage) 500 mg PO DAILYWM [facility] Last Admin: 04/16/17 08:08 Dose: 500 mg Modafinil (Provigil) 100 mg PO DAILY [facility] Last Admin: 04/16/17 09:11 Dose: 100 mg Sitagliptin Phosphate (Januvia) 25 mg PO DAILY [facility] Last Admin: 04/16/17 09:06 Dose: 25 mg - Labs Labs: 04/12/17 09:30 04/12/17 09:30
[2017-04-16] MEDS: Sodium Chloride 0.9% 1,000 ML IV SCH (18:31)
[2017-04-17] MEDS: Insulin Regular 100 units/ml SC SCH ×2 (06:11→21:00)
[2017-04-17] MEDS: Lacosamide 50 MG Tab PO SCH ×2 (09:05→21:00)
[2017-04-17] MEDS: Lactobacillus Acidophilus 500 MU Cap PO SCH ×2 (09:05→17:01)
[2017-04-17] MEDS: Aspirin-Dipyridamole 200-25 mg ER Cap PO SCH ×2 (09:06→21:00)
[2017-04-17] MEDS: guaiFENesin 100 mg/5 ml Syrup UD PO SCH ×2 (09:07→17:07)
--- NOTE | 2017-04-17 14:41 | CP.PCM.PN ---
Subjective - Date & Time of Evaluation Date of Evaluation: 04/17/17 Time of Evaluation: 14:40 - Subjective Subjective: Patient seen in room doing much better and really interactive and motivated excellent acute rehab candidate continue current care Objective - Vital Signs/Intake and Output Vital Signs (last 24 hours): Temp Pulse Resp BP Pulse Ox 98.1 F 68 20 149/81 97 04/17/17 09:50 04/17/17 13:34 04/17/17 09:50 04/17/17 13:34 04/17/17 09:50 Intake and Output: 04/17/17 04/17/17 06:59 18:59 Intake Total 940 Output Total 650 Balance 290 - Medications Medications: Current Medications Acetaminophen (Tylenol 650 Mg Supp) 650 mg [place] Q4 PRN PRN Reason: Fever >100.4 F Last Admin: 04/04/17 11:31 Dose: 650 mg Albuterol/Ipratropium (Duoneb 3 Mg/0.5 Mg (3 Ml) Ud) 3 ml INH RQ6 PRN PRN Reason: Shortness of Breath Albuterol/Ipratropium (Duoneb 3 Mg/0.5 Mg (3 Ml) Ud) 3 ml INH RQ6 PRN PRN Reason: Shortness of Breath Atorvastatin Calcium (Lipitor) 40 mg PO HS [facility] Last Admin: 04/16/17 21:18 Dose: 40 mg Clopidogrel Bisulfate (Plavix) 75 mg PO DAILY [facility] Last Admin: 04/17/17 09:05 Dose: 75 mg Clotrimazole (Lotrimin 1% Cream) 1 applic TOP BID [facility] Last Admin: 04/17/17 09:21 Dose: 1 applic Dipyridamole/Aspirin (Aggrenox 25-200 Mg) 1 ea PO Q12 [facility] Last Admin: 04/17/17 09:06 Dose: 1 ea Ergocalciferol (Drisdol 50,000 Intl Units Cap) 1 cap PO TUE [facility] Last Admin: 04/16/17 09:07 Dose: 1 cap Escitalopram Oxalate (Lexapro) 10 mg PO DAILY [facility] Last Admin: 04/17/17 09:06 Dose: 10 mg Famotidine (Pepcid) 20 mg PO BID [facility] Last Admin: 04/17/17 09:06 Dose: 20 mg Guaifenesin (Robitussin) 100 mg PO BID [facility] Last Admin: 12/13/17 09:07 Dose: 100 mg Heparin Sodium (Porcine) (Heparin) 5,000 units SC Q12 [facility] PRN Reason: Protocol Last Admin: 04/17/17 09:03 Dose: 5,000 units Heparin Sodium (Porcine) (Heparin) 5,000 units SC Q12 [facility] PRN Reason: Protocol Sodium Chloride (Sodium Chloride 0.9%) 1,000 mls @ 70 mls/hr IV DAILY@1900 [facility] Last Admin: 04/16/17 18:31 Dose: 70 mls/hr Insulin Human Regular (Humulin R) 0 units SC 0600,2100 [facility] PRN Reason: Protocol Last Admin: 04/17/17 06:11 Dose: Not Given Labetalol HCl (Trandate) 50 mg PO Q8 [facility] Last Admin: 04/17/17 13:34 Dose: 50 mg Lacosamide (Vimpat) 150 mg PO Q12 [facility] Last Admin: 04/17/17 09:05 Dose: 150 mg Lactobacillus Acidophilus (Bacid Acidophilus) 1 cap PO BID [facility] Last Admin: 04/17/17 09:05 Dose: 1 cap Metformin HCl (Glucophage) 500 mg PO DAILYWM [facility] Last Admin: 04/17/17 08:45 Dose: 500 mg Modafinil (Provigil) 100 mg PO DAILY [facility] Last Admin: 04/17/17 09:06 Dose: 100 mg Modafinil (Provigil) 100 mg PO DAILY [facility] Last Admin: 04/17/17 09:08 Dose: Not Given Sitagliptin Phosphate (Januvia) 25 mg PO DAILY [facility] Last Admin: 04/17/17 09:07 Dose: 25 mg - Labs Labs: 04/12/17 09:30 04/12/17 09:30
[2017-04-17] MEDS: Sodium Chloride 0.9% 1,000 ML IV SCH (18:02)
[2017-04-18] MEDS: Insulin Regular 100 units/ml SC SCH ×2 (06:28→21:51)
[2017-04-18] MEDS: Aspirin-Dipyridamole 200-25 mg ER Cap PO SCH ×2 (08:11→21:40)
[2017-04-18] MEDS: guaiFENesin 100 mg/5 ml Syrup UD PO SCH ×2 (08:12→17:24)
[2017-04-18] MEDS: Lacosamide 50 MG Tab PO SCH ×2 (08:32→21:51)
[2017-04-18] MEDS: Acyclovir 5% OINT 15 APPLIC/15 GM TOP SCH ×3 (09:00→17:21)
[2017-04-18] MEDS: Sodium Chloride 0.9% 1,000 ML IV SCH (20:48)
[2017-04-19] MEDS: Insulin Regular 100 units/ml SC SCH ×2 (06:12→22:02)
[2017-04-19] MEDS: Lacosamide 50 MG Tab PO SCH ×2 (09:11→22:00)
[2017-04-19] MEDS: Aspirin-Dipyridamole 200-25 mg ER Cap PO SCH ×2 (10:00→22:00)
[2017-04-19] MEDS: Acyclovir 5% OINT 15 APPLIC/15 GM TOP SCH ×3 (10:00→17:08)
[2017-04-19] MEDS: Sodium Chloride 0.9% 1,000 ML IV SCH ×2 (18:45→21:02)
[2017-04-19] MEDS ORDERED: Sodium Chloride 0.9% 1,000 ML IV SCH (19:00)
--- NOTE | 2017-04-20 01:23 | PN ---
DATE: 04/19/2017 SUBJECTIVE: Patient is seen today, 04/19/2017. He is cooperative to physical therapy and occupational therapy. PHYSICAL EXAMINATION: VITAL SIGNS: Blood pressure 140/80, temperature 97.7, respiratory rate 18, and pulse 72. HEENT: Pupils equal, reactive to light. Normal-appearing mucosa of the conjunctivae, oropharynx, and nasal membrane mucosa. NECK: Supple. No JVD. No carotid bruit. No lymph node. No thyromegaly. CHEST AND LUNGS: Bilateral symmetrical expansion. Good air exchange. No rales, no rhonchi. CARDIOVASCULAR SYSTEM: PMI not localized. S1, S2. No additional sounds. ABDOMEN: Normoactive bowel sounds. No tenderness. No organomegaly. No masses. EXTREMITIES: No cyanosis. No clubbing. No edema. CENTRAL NERVOUS SYSTEMS: Alert, awake, oriented x2. The patient has left-sided hemiplegia. 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 PLAN: Continue current medications and physical therapy. Continue night hydration and BiPAP as tolerated. Les Holguin MD
[2017-04-20] MEDS: Insulin Regular 100 units/ml SC SCH ×2 (06:24→21:27)
[2017-04-20] MEDS: Aspirin-Dipyridamole 200-25 mg ER Cap PO SCH ×2 (09:08→21:27)
[2017-04-20] MEDS: Acyclovir 5% OINT 15 APPLIC/15 GM TOP SCH ×3 (09:09→17:47)
[2017-04-20] MEDS: Lacosamide 50 MG Tab PO SCH ×2 (10:45→21:30)
[2017-04-20] MEDS ORDERED: Sodium Chloride 0.9% 1,000 ML IV SCH (13:00)
[2017-04-20] MEDS: Sodium Chloride 0.9% 1,000 ML IV SCH (13:08)
[2017-04-21] MEDS: Insulin Regular 100 units/ml SC SCH ×2 (06:20→21:28)
[2017-04-21] MEDS: Aspirin-Dipyridamole 200-25 mg ER Cap PO SCH ×2 (09:33→21:27)
[2017-04-21] MEDS: Acyclovir 5% OINT 15 APPLIC/15 GM TOP SCH ×3 (09:34→18:03)
[2017-04-21] MEDS: Lacosamide 50 MG Tab PO SCH ×2 (09:40→21:31)
--- NOTE | 2017-04-21 11:58 | CP.PCM.PN ---
Subjective - Date & Time of Evaluation Date of Evaluation: 04/21/17 Time of Evaluation: 08:30 - Subjective Subjective: no neck or back pain Objective - Vital Signs/Intake and Output Vital Signs (last 24 hours): Temp Pulse Resp BP Pulse Ox 97.0 F L 79 18 146/76 97 04/21/17 09:05 04/21/17 09:05 04/21/17 09:05 04/21/17 09:05 04/21/17 09:05 Intake and Output: 04/21/17 04/21/17 06:59 18:59 Intake Total 300 Balance 300 - Medications Medications: Current Medications Acetaminophen (Tylenol 650 Mg Supp) 650 mg [place] Q4 PRN PRN Reason: Fever >100.4 F Last Admin: 04/04/17 11:31 Dose: 650 mg Acyclovir (Zovirax 5% Oint) 1 applic TOP TID [facility] Last Admin: 04/21/17 09:34 Dose: 1 applic Albuterol/Ipratropium (Duoneb 3 Mg/0.5 Mg (3 Ml) Ud) 3 ml INH RQ6 PRN PRN Reason: Shortness of Breath Albuterol/Ipratropium (Duoneb 3 Mg/0.5 Mg (3 Ml) Ud) 3 ml INH RQ6 PRN PRN Reason: Shortness of Breath Atorvastatin Calcium (Lipitor) 40 mg PO HS [facility] Last Admin: 04/20/17 21:27 Dose: 40 mg Clopidogrel Bisulfate (Plavix) 75 mg PO DAILY [facility] Last Admin: 04/21/17 09:33 Dose: 75 mg Clotrimazole (Lotrimin 1% Cream) 1 applic TOP BID [facility] Last Admin: 04/21/17 09:32 Dose: 1 applic Dipyridamole/Aspirin (Aggrenox 25-200 Mg) 1 ea PO Q12 [facility] Last Admin: 04/21/17 09:33 Dose: 1 ea Ergocalciferol (Drisdol 50,000 Intl Units Cap) 1 cap PO TUE [facility] Last Admin: 04/16/17 09:07 Dose: 1 cap Escitalopram Oxalate (Lexapro) 10 mg PO DAILY [facility] Last Admin: 04/21/17 09:33 Dose: 10 mg Famotidine (Pepcid) 20 mg PO BID [facility] Last Admin: 04/21/17 09:33 Dose: 20 mg Heparin Sodium (Porcine) (Heparin) 5,000 units SC Q12 [facility] PRN Reason: Protocol Last Admin: 04/21/17 09:33 Dose: 5,000 units Insulin Human Regular (Humulin R) 0 units SC 0600,2100 [facility] PRN Reason: Protocol Last Admin: 04/21/17 06:20 Dose: Not Given Labetalol HCl (Trandate) 50 mg PO Q8 [facility] Last Admin: 04/21/17 06:15 Dose: 50 mg Lacosamide (Vimpat) 150 mg PO Q12 [facility] Last Admin: 04/21/17 09:40 Dose: 150 mg Metformin HCl (Glucophage) 500 mg PO DAILYWM [facility] Last Admin: 04/21/17 09:00 Dose: 500 mg Modafinil (Provigil) 100 mg PO DAILY [facility] Last Admin: 04/21/17 09:40 Dose: 100 mg Sitagliptin Phosphate (Januvia) 25 mg PO DAILY [facility] Last Admin: 04/21/17 09:33 Dose: 25 mg - Labs Labs: 04/12/17 09:30 04/12/17 09:30 - Head Exam Head Exam: ATRAUMATIC, NORMAL INSPECTION, NORMOCEPHALIC - Eye Exam Eye Exam: EOMI, Normal appearance, PERRL Pupil Exam: NORMAL ACCOMODATION - ENT Exam ENT Exam: Mucous Membranes Moist, Normal Exam - Neck Exam Neck Exam: Normal Inspection - Respiratory Exam Respiratory Exam: NORMAL BREATHING PATTERN - Cardiovascular Exam Cardiovascular Exam: REGULAR RHYTHM - GI/Abdominal Exam GI & Abdominal Exam: Soft - Rectal Exam Rectal Exam: NORMAL INSPECTION - Exam External exam: NORMAL EXTERNAL EXAM - Extremities Exam Extremities Exam: Full ROM, Normal Capillary Refill, Normal Inspection - Back Exam Back Exam: NORMAL INSPECTION - Neurological Exam Neurological Exam: Alert, Awake Neuro motor strength exam: Left Upper Extremity: 2/1, Right Upper Extremity: 3, Left Lower Extremity: 3, Right Lower Extremity: 3 - Psychiatric Exam Psychiatric exam: Normal Affect, Normal Mood - Skin Skin Exam: Dry, Intact Assessment and Plan (1) Aphasia S/P CVA Assessment & Plan: plan for physical, occupational therapy covering for DR Whitehead Status: Acute (2) Dysphasia following cerebrovascular accident (CVA) Status: Acute (3) Fever Status: Acute (4) Leucocytosis Status: Acute (5) Falls Status: Acute (6) Generalized weakness Status: Acute
[2017-04-21 13:28] LABS: BASO % 0.8 % (0.0-2.0); EOS # 0.2 K/uL (0.0-0.7); HEMATOCRIT 40.9 % (35.0-51.0); LYMPH # 1.7 K/uL (1.0-4.3); LYMPH % 31.7 % (20.0-40.0); MEAN CELL VOLUME 85.3 fl (80.0-94.0); MEAN CORPUSCULAR HGB CONC 32.8 g/dL (33.0-37.0); MEAN PLATELET VOLUME 7.9 fl (7.2-11.7); MONO # 0.6 K/uL (0.0-0.8); MONO % 11.2 % (0.0-10.0); NEUT # 2.9 K/uL (1.8-7.0); NEUT % 53.3 % (50.0-75.0); NRBC % 0.1 % (0.0-0.0); RED CELL DISTRIBUTION WIDTH 17.2 % (11.5-14.5); WHITE BLOOD COUNT 5.5 K/uL (4.8-10.8)
[2017-04-21 13:43] LABS: ALB/GLOB RATIO 1.1 (1.0-2.1); ALKALINE PHOSPHATASE 108 U/L (38-126); ALT/SGPT 108 U/L (21-72); AST/SGOT 56 U/L (17-59); BILIRUBIN,TOTAL 0.5 mg/dl (0.2-1.3); BLOOD UREA NITROGEN 13 mg/dl (9-20); CALCIUM 9.5 mg/dL (8.4-10.2); CARBON DIOXIDE 25 mmol/L (22-30); CHLORIDE 103 mmol/L (98-107); GFR AFRICAN-AMERICAN > 60; GLUCOSE,RANDOM 92 mg/dL (75-110); POTASSIUM 4.5 MMOL/L (3.6-5.0); SODIUM 141 mmol/l (132-148); TOTAL PROTEIN 8.5 G/DL (6.3-8.2)
[2017-04-21] MEDS ORDERED: Nasal Spray(Ocean spray) NAS PRN (17:58)
--- NOTE | 2017-04-22 00:47 | PN ---
DATE: 04/21/2017 SUBJECTIVE: The patient is seen today, 04/21/2017. He is not in any cardiopulmonary distress. The patient is on pureed diet, which he is tolerating. PHYSICAL EXAMINATION VITAL SIGNS: Blood pressure 138/74, temperature 97.5, respiratory rate 20 and pulse 75. HEENT: Pupils equal and reactive to light. Normal-appearing mucosa of the conjunctivae, oropharyngeal and nasal membrane mucosa. NECK: Supple. No JVD. No carotid bruit. No lymph node. No thyromegaly. CHEST AND LUNGS: Bilateral symmetrical expansion. Good air exchange. No rales, no rhonchi. CARDIOVASCULAR SYSTEM: PMI not localized. S1 and S2. No additional sounds. ABDOMEN: Normoactive bowel sounds. No tenderness. No organomegaly. No masses. EXTREMITIES: No cyanosis, no clubbing, no edema. CENTRAL NERVOUS SYSTEM: Alert, awake, oriented x2 and the patient has aphasia as well as left-sided hemiplegia. ASSESSMENT: Cerebrovascular accident with left-sided hemiplegia, hypertension, type 2 diabetes mellitus. PLAN: Continue current medications and we will do venous Doppler for lower extremities as right lower extremity edema was noted. We will discontinue IV fluid and continue current management. Les Holguin MD
[2017-04-22] MEDS: Insulin Regular 100 units/ml SC SCH ×2 (05:53→21:19)
[2017-04-22] MEDS: Lacosamide 50 MG Tab PO SCH ×2 (08:16→22:16)
[2017-04-22] MEDS: Aspirin-Dipyridamole 200-25 mg ER Cap PO SCH ×2 (08:17→20:05)
[2017-04-22] MEDS: Acyclovir 5% OINT 15 APPLIC/15 GM TOP SCH (08:19)
--- NOTE | 2017-04-22 11:38 | US ---
PROCEDURE: Bilateral lower extremity venous duplex Doppler. HISTORY: bilateral lower ext swelling COMPARISON: None available. TECHNIQUE: Bilateral common femoral, superficial femoral, popliteal and posterior tibial veins were evaluated. Flow was assessed with color Doppler, compressibility, assessment of phasic flow and augmentation response. FINDINGS: COMMON FEMORAL VEIN: Right CFV: Unremarkable. Left CFV: Unremarkable. SUPERFICIAL FEMORAL VEIN: Right SFV: Unremarkable. Left SFV: Unremarkable. POPLITEAL VEIN: Right Popliteal: Unremarkable. Left Popliteal: Unremarkable. POSTERIOR TIBIAL VEIN: Right PTV: Unremarkable. Left PTV: Unremarkable. OTHER FINDINGS: None. IMPRESSION: No evidence of deep venous thrombosis.
[2017-04-22] MEDS: Acyclovir 5% OINT 5 APPLIC/5 GM TOP SCH ×2 (13:09→17:06)
[2017-04-22] MEDS ORDERED: Lacosamide 50 MG Tab PO STA (22:17)
[2017-04-22] MEDS ORDERED: Lacosamide 100 MG Tab PO STA (22:18)
[2017-04-23] MEDS: Insulin Regular 100 units/ml SC SCH ×2 (05:35→22:35)
[2017-04-23] MEDS: Aspirin-Dipyridamole 200-25 mg ER Cap PO SCH ×2 (08:34→22:34)
[2017-04-23] MEDS: Acyclovir 5% OINT 5 APPLIC/5 GM TOP SCH ×3 (08:35→17:30)
[2017-04-23] MEDS: Ergocalciferol 50,000 Intl Units Cap PO SCH (08:35)
[2017-04-23] MEDS: Lacosamide 50 MG Tab PO SCH ×2 (09:00→22:34)
--- NOTE | 2017-04-23 13:10 | PSY.TMCNF ---
Nursing - Vital Signs Vital Signs (Last 8 hours): Vital Signs 04/23/17 04/23/17 05:43 10:34 Temperature 97.3 F L Pulse Rate 66 66 Respiratory 20 Rate Blood Pressure 148/81 148/81 Pain: 0 - Precautions: Precautions: Fall Prevention, Aspiration, Pressure Ulcer, Seizure - Medications/Other Issues Comment: Tolerating current meds whole with pudding. - Consults Comment: Dr. Weiss, Dr. Richards, Dr. Quezada, Dr. Rain, Dr. Sen - Toileting Toileting: Dependent - Bladder Management Bladder Pattern: Normal, Incontinent Voiding Method: Toilet, Urinal, Diaper Bladder Management: Dependent Frequency of Accidents: >5 - Bowel Management Bowel Pattern: Normal Bowel Management: Dependent Frequency of Accidents: 0 - Transfers Transfers: Moderate Assistance - ADL's ADL's: Maximal Assistance - Pain Management Comments: denies any pain - Patient/Family Teaching Comments: safety fall aspiration seizure precaution post stroke care - Goals/Time Frame Comments: as per multidiciplinary plan of care - Provider Provider: Nelly CUELLARN RN CRRN Physical Therapy - Bed Mobility Bed Mobility: Minimal Assistance, Moderate Assistance - Transfers Wheelchair to Mat: Moderate Assistance Sit to Stand: Verbal Cues, Minimal Assistance, Moderate Assistance - Ambulation Level of Assistance: Moderate Assistance, Maximum Assistance Distance (ft.): 50 Assistive Devices: Narrow base quad cane Orthoses: L DF Comment: -45 feet with NBQC. -L DF wrap, WC follow for safety 2' to fatigue. - step by step cues for sequencing and safety; tactile cues for increased hip flexion on RLE for increased height in swing phase. -assistance to weight shift lateral towards right and left instead of anterior/posterior. -patient some improvement in ability to stabilize L knee in stance; able to assist but with increased reaction time and with tactile cueing to the quads - Stair Negotiation Stairs: Level of Assistance: Moderate Assistance, Maximum Assistance Number of Stairs: 2 Stairs: Assistive Devices: Right Handrail Comment: 2 6inch steps with max A to mod A, L Df wrap, R rail - Standing Balance Static Stand: Minimal Assistance Dynamic Stand: Moderate Assistance, Maximal Assistance - Pain Pain (assessed during therapy session): 0 - Insight/Carryover Insight/Carryover: Good - Patient/Family Education Comment: safety and fall prevention, compensatory strategies with hemitechnique, - Assessment/Plan Assessment: Pt continues to make slow progress, Recommend continued OT services to address LUE strength/AROM, balance, L inattention, cognitive deficits/safety awareness, and endurance to maximize independence with ADLs and functional transfers. - Goals Timeframe: 1 week Goals: MIN A toilet txfer. MAX A toileting. S with grooming. S with feeding. MIN A UE Dressing. MAX A LE Dressing - Provider Therapist: Danielle License Number: [id number] Occupational Therapy - Arousal/Attention/Orientation Level of Consciousness: Awake, Alert Patient Orientation: Person - ADL/IADL Self Feeding: Maximum Assistance Grooming: Verbal Cues, Set-up Help, Minimal Assistance Bathing-Upper Extremity: Maximum Assistance Bathing-Lower Extremity: Dependent Dressing-Upper Extremity: Maximum Assistance Dressing-Lower Extremity: Dependent - Sitting Balance Static Sitting: Contact Guard Assist Dynamic Sitting: Moderate Assistance - Transfers Wheelchair to Bed Transfers: Verbal Cues, Set-up Help, Moderate Assistance Toilet Transfers: Verbal Cues, Set-up Help, Moderate Assistance Tub Transfers: Verbal Cues, Set-up Help, Dependent - Wheelchair Management Level of Assistance: Dependent - Upper Extremity Status Right Upper Extremity Comment: ROM WFL MMT 4/5 Left Upper Extremity Comment: L anterior glenohumeral subluxation. PROM WFL with exception to shoulder flexion approx 120*. active muscle at biceps/triceps /deltoid 2-/5 - Pain Pain (assessed during therapy session): 0 - Insight/Carryover Insight/Carryover: Good - Patient/Family Education Comment: safety and fall prevention, compensatory strategies with hemitechnique, - Assessment/Plan Assessment: Pt continues to make slow progress, Recommend continued OT services to address LUE strength/AROM, balance, L inattention, cognitive deficits/safety awareness, and endurance to maximize independence with ADLs and functional transfers. - Goals Timeframe: 1 week Goals: MIN A toilet txfer. MAX A toileting. S with grooming. S with feeding. MIN A UE Dressing. MAX A LE Dressing - Provider Therapist: Tashia Borden License Number: [id number] Speech Therapy - Consult Information Patient on Program: No Medical Diagnosis: CVA Treatment Diagnosis: -severe dysarthria. -moderate receptive/expressive aphasia. -moderate-severe oropharyngeal dysphagia - Assessment Expressive Language Impairment: Moderate Receptive Language Impairment: Moderate Speech/Articulation Impairment: Severe Dysphagia/Swallowing Impairment: Severe Comment: moderate-severe - Plan Assessment: Pt continues to make slow progress, Recommend continued OT services to address LUE strength/AROM, balance, L inattention, cognitive deficits/safety awareness, and endurance to maximize independence with ADLs and functional transfers. - Provider Therapist: Shivani Castaneda License Number: [id number] Recreational Therapy - Participation Participation: Participates in Individual and/or Group Sessions - Attendance Attendance: 3-5 times per week - Activities Leisure Activities: Cards and Games - Socialization Level of Socialization: Requires 1:1 guidance to respond, Minimal initiation of interaction to request basic needs, Minimal or no response - Diversional Time Diversional Time: television, music - Assessment Assessment/Plan: Pt continues to make slow progress, Recommend continued OT services to address LUE strength/AROM, balance, L inattention, cognitive deficits/safety awareness, and endurance to maximize independence with ADLs and functional transfers. - Provider Therapist: Savanna Weldon, [employer] #[id number] Nutrition - Current Diet Current Diet/ Supplement/ Feedings: Pureed honey thick liquids ensure pudding 4 ounces 3 per day(510 kcal and. 12 grams of protein) - Appetite Percent Meal Consumed: 75-100% - Comments Comments: safety fall aspiration seizure precaution post stroke care - Assessment/Goals/Time Frame Assessment/Goals/Time Frame: Tolerating current meds whole with pudding. - Provider Provider: Hannah Hopson RD Case Management - Psychosocial Assessment Support Systems: Manuel Lehmandar (spouse)- [phone], Psychological Interventions/Needs: Patient alert with dysarthria and mild cognitive impairments Discharge Concerns: Patient requiring mod A for transfers, max A for gait, total A with ADLs, however, continues to demonstrate progress in therapy Patient/Family Meeting: CM met with patient and rehab team. Intervention/Goal/Outcome:: 1. PLAN: REGULO randi Allan per Dr. Holguin. 2. Tentative discharge date: 04/30/2017. 3. continued emotional support. 4. CM to coordinate and arrange for transfer - Discharge Plan Discharge Plan: Subacute care - Provider Provider: MAGGY Elena, [employer] License Number: [id number] Rehabilitation Plan - Treatment Plan Treatment Plan: Physical Therapy, Occupational Therapy, Speech, Dietary, Patient /Family Education - Discharge Plan Estimated Date of Discharge: 04/30/17 Discharge to: Subacute
--- NOTE | 2017-04-23 13:34 | CP.PCM.PN ---
Subjective - Date & Time of Evaluation Date of Evaluation: 04/23/17 Time of Evaluation: 13:31 - Subjective Subjective: patient seen in room with present he is getting a little impulsive and this is a safety concern but he is also improving functionally as well and I told the that this is not an unusual part the recovery in a CVA patient She understood. We will continue with therapies. He remains an ideal CVA acute rehab patient Objective - Vital Signs/Intake and Output Vital Signs (last 24 hours): Temp Pulse Resp BP Pulse Ox 97.3 F L 66 20 148/81 95 04/23/17 10:34 04/23/17 10:34 04/23/17 10:34 04/23/17 10:34 04/22/17 20:04 Intake and Output: 04/23/17 04/23/17 06:59 18:59 Intake Total 120 Balance 120 - Medications Medications: Current Medications Acetaminophen (Tylenol 650 Mg Supp) 650 mg [place] Q4 PRN PRN Reason: Fever >100.4 F Last Admin: 04/04/17 11:31 Dose: 650 mg Acyclovir (Zovirax 5% Oint) 1 applic TOP TID [facility] Last Admin: 04/23/17 12:47 Dose: 1 applic Albuterol/Ipratropium (Duoneb 3 Mg/0.5 Mg (3 Ml) Ud) 3 ml INH RQ6 PRN PRN Reason: Shortness of Breath Albuterol/Ipratropium (Duoneb 3 Mg/0.5 Mg (3 Ml) Ud) 3 ml INH RQ6 PRN PRN Reason: Shortness of Breath Atorvastatin Calcium (Lipitor) 40 mg PO HS [facility] Last Admin: 04/22/17 22:20 Dose: 40 mg Clopidogrel Bisulfate (Plavix) 75 mg PO DAILY [facility] Last Admin: 04/23/17 08:34 Dose: 75 mg Clotrimazole (Lotrimin 1% Cream) 1 applic TOP BID [facility] Last Admin: 04/23/17 08:36 Dose: 1 applic Dipyridamole/Aspirin (Aggrenox 25-200 Mg) 1 ea PO Q12 [facility] Last Admin: 04/23/17 08:34 Dose: 1 ea Ergocalciferol (Drisdol 50,000 Intl Units Cap) 1 cap PO TUE [facility] Last Admin: 04/23/17 08:35 Dose: 1 cap Escitalopram Oxalate (Lexapro) 10 mg PO DAILY [facility] Last Admin: 04/23/17 08:34 Dose: 10 mg Famotidine (Pepcid) 20 mg PO BID [facility] Last Admin: 04/23/17 08:35 Dose: 20 mg Heparin Sodium (Porcine) (Heparin) 5,000 units SC Q12 [facility] PRN Reason: Protocol Last Admin: 04/23/17 08:34 Dose: 5,000 units Insulin Human Regular (Humulin R) 0 units SC 0600,2100 [facility] PRN Reason: Protocol Last Admin: 04/23/17 05:35 Dose: Not Given Labetalol HCl (Trandate) 50 mg PO Q8 [facility] Last Admin: 04/23/17 05:43 Dose: 50 mg Lacosamide (Vimpat) 150 mg PO Q12 [facility] Last Admin: 04/23/17 09:00 Dose: 150 mg Metformin HCl (Glucophage) 500 mg PO DAILYWM [facility] Last Admin: 04/23/17 08:34 Dose: 500 mg Modafinil (Provigil) 100 mg PO DAILY [facility] Last Admin: 04/23/17 08:36 Dose: 100 mg Sitagliptin Phosphate (Januvia) 25 mg PO DAILY [facility] Last Admin: 04/23/17 08:34 Dose: 25 mg Sodium Chloride ([place] Nasal [place]) 1 sprays [facility] Q4 PRN PRN Reason: Nasal congestion - Labs Labs: 04/21/17 13:19 04/21/17 13:19
[2017-04-24] MEDS: Insulin Regular 100 units/ml SC SCH ×2 (07:16→21:51)
[2017-04-24] MEDS: Aspirin-Dipyridamole 200-25 mg ER Cap PO SCH ×2 (08:53→21:50)
[2017-04-24] MEDS: Acyclovir 5% OINT 5 APPLIC/5 GM TOP SCH ×3 (08:57→18:08)
--- NOTE | 2017-04-24 09:24 | CP.PCM.PN ---
Subjective - Date & Time of Evaluation Date of Evaluation: 04/24/17 Time of Evaluation: 09:23 - Subjective Subjective: Patient seen in PT doing ok no pain no sob continues to be very motivated in therapies alert and ready for treatment Objective - Vital Signs/Intake and Output Vital Signs (last 24 hours): Temp Pulse Resp BP Pulse Ox 97.5 F L 61 18 129/81 95 04/23/17 20:02 04/24/17 07:13 04/23/17 20:02 04/24/17 07:13 04/23/17 20:02 - Medications Medications: Current Medications Acetaminophen (Tylenol 650 Mg Supp) 650 mg [place] Q4 PRN PRN Reason: Fever >100.4 F Last Admin: 04/04/17 11:31 Dose: 650 mg Acyclovir (Zovirax 5% Oint) 1 applic TOP TID [facility] Last Admin: 04/24/17 08:57 Dose: 1 applic Albuterol/Ipratropium (Duoneb 3 Mg/0.5 Mg (3 Ml) Ud) 3 ml INH RQ6 PRN PRN Reason: Shortness of Breath Albuterol/Ipratropium (Duoneb 3 Mg/0.5 Mg (3 Ml) Ud) 3 ml INH RQ6 PRN PRN Reason: Shortness of Breath Atorvastatin Calcium (Lipitor) 40 mg PO HS [facility] Last Admin: 04/23/17 22:34 Dose: 40 mg Clopidogrel Bisulfate (Plavix) 75 mg PO DAILY [facility] Last Admin: 04/24/17 08:56 Dose: 75 mg Clotrimazole (Lotrimin 1% Cream) 1 applic TOP BID [facility] Last Admin: 04/24/17 08:55 Dose: 1 applic Dipyridamole/Aspirin (Aggrenox 25-200 Mg) 1 ea PO Q12 [facility] Last Admin: 04/24/17 08:53 Dose: 1 ea Ergocalciferol (Drisdol 50,000 Intl Units Cap) 1 cap PO TUE [facility] Last Admin: 04/23/17 08:35 Dose: 1 cap Escitalopram Oxalate (Lexapro) 10 mg PO DAILY [facility] Last Admin: 04/24/17 08:55 Dose: 10 mg Famotidine (Pepcid) 20 mg PO BID [facility] Last Admin: 04/24/17 08:56 Dose: 20 mg Heparin Sodium (Porcine) (Heparin) 5,000 units SC Q12 [facility] PRN Reason: Protocol Last Admin: 04/24/17 08:55 Dose: 5,000 units Insulin Human Regular (Humulin R) 0 units SC 0600,2100 [facility] PRN Reason: Protocol Last Admin: 04/24/17 07:16 Dose: Not Given Labetalol HCl (Trandate) 50 mg PO Q8 [facility] Last Admin: 04/24/17 07:13 Dose: 50 mg Lacosamide (Vimpat) 150 mg PO Q12 [facility] Last Admin: 04/23/17 22:34 Dose: 150 mg Metformin HCl (Glucophage) 500 mg PO DAILYWM [facility] Last Admin: 04/24/17 08:54 Dose: 500 mg Modafinil (Provigil) 100 mg PO DAILY [facility] Last Admin: 04/24/17 08:59 Dose: 100 mg Sitagliptin Phosphate (Januvia) 25 mg PO DAILY [facility] Last Admin: 04/24/17 08:55 Dose: 25 mg Sodium Chloride ([place] Nasal [place]) 1 sprays [facility] Q4 PRN PRN Reason: Nasal congestion - Labs Labs: 04/21/17 13:19 04/21/17 13:19
[2017-04-24] MEDS: Lacosamide 50 MG Tab PO SCH ×2 (12:09→21:57)
[2017-04-24] MEDS ORDERED: Barium Sulfate Susp 0.1% w/v, 0.1% w/w 450 mL Bottle PO ONE (13:31)
--- NOTE | 2017-04-24 16:07 | CP.PCM.PN ---
Subjective - Date & Time of Evaluation Date of Evaluation: 04/24/17 Time of Evaluation: 16:06 - Subjective Subjective: Patient was seen and examined at bedside. Afebrile, hemodynamically stable. Family at bedside as well. Doing well with PT/OT/ST. No new complaints. Objective - Vital Signs/Intake and Output Vital Signs (last 24 hours): Temp Pulse Resp BP Pulse Ox 97.5 F L 74 19 138/76 97 04/24/17 10:00 04/24/17 14:26 04/24/17 10:00 04/24/17 14:26 04/24/17 10:00 - Medications Medications: Current Medications Acetaminophen (Tylenol 650 Mg Supp) 650 mg [place] Q4 PRN PRN Reason: Fever >100.4 F Last Admin: 04/04/17 11:31 Dose: 650 mg Acyclovir (Zovirax 5% Oint) 1 applic TOP TID [facility] Last Admin: 04/24/17 12:10 Dose: 1 applic Albuterol/Ipratropium (Duoneb 3 Mg/0.5 Mg (3 Ml) Ud) 3 ml INH RQ6 PRN PRN Reason: Shortness of Breath Albuterol/Ipratropium (Duoneb 3 Mg/0.5 Mg (3 Ml) Ud) 3 ml INH RQ6 PRN PRN Reason: Shortness of Breath Atorvastatin Calcium (Lipitor) 40 mg PO HS [facility] Last Admin: 04/23/17 22:34 Dose: 40 mg Clopidogrel Bisulfate (Plavix) 75 mg PO DAILY [facility] Last Admin: 04/24/17 08:56 Dose: 75 mg Clotrimazole (Lotrimin 1% Cream) 1 applic TOP BID [facility] Last Admin: 04/24/17 08:55 Dose: 1 applic Dipyridamole/Aspirin (Aggrenox 25-200 Mg) 1 ea PO Q12 [facility] Last Admin: 04/24/17 08:53 Dose: 1 ea Ergocalciferol (Drisdol 50,000 Intl Units Cap) 1 cap PO TUE [facility] Last Admin: 04/23/17 08:35 Dose: 1 cap Escitalopram Oxalate (Lexapro) 10 mg PO DAILY [facility] Last Admin: 04/24/17 08:55 Dose: 10 mg Famotidine (Pepcid) 20 mg PO BID [facility] Last Admin: 04/24/17 08:56 Dose: 20 mg Heparin Sodium (Porcine) (Heparin) 5,000 units SC Q12 [facility] PRN Reason: Protocol Last Admin: 04/24/17 08:55 Dose: 5,000 units Insulin Human Regular (Humulin R) 0 units SC 0600,2100 [facility] PRN Reason: Protocol Last Admin: 04/24/17 07:16 Dose: Not Given Labetalol HCl (Trandate) 50 mg PO Q8 [facility] Last Admin: 04/24/17 14:26 Dose: 50 mg Lacosamide (Vimpat) 150 mg PO Q12 [facility] Last Admin: 04/24/17 12:09 Dose: 150 mg Metformin HCl (Glucophage) 500 mg PO DAILYWM [facility] Last Admin: 04/24/17 08:54 Dose: 500 mg Modafinil (Provigil) 100 mg PO DAILY [facility] Last Admin: 04/24/17 08:59 Dose: 100 mg Sitagliptin Phosphate (Januvia) 25 mg PO DAILY [facility] Last Admin: 04/24/17 08:55 Dose: 25 mg Sodium Chloride ([place] Nasal [place]) 1 sprays [facility] Q4 PRN PRN Reason: Nasal congestion - Labs Labs: 04/21/17 13:19 04/21/17 13:19 - Additional Findings Additional findings: Physical exam: Constitutional- cooperative, awake, alert. Head- NCAT, PERRL Eye- PERRL, normal accommodation ENT- normal exam, MMM. Neck- normal inspection, supple, no JVD Respiratory- mild rales in left base, no wheezes or rhonchi Cardiovascular- RRR, +S1, +S2 no MRG GI/Abdominal- normal bowel sounds, soft, no mass, no hsm Skin- warm, dry Extremities Exam- normal capillary refill, normal inspection Neurological Exam- +Alert +Left sided hemiplegia, + Aphasia Psych- normal mood, normal affect Assessment and Plan - Assessment and Plan (Free Text) Plan: ASSESSMENT/PLAN This is a 61 year old male with a past medical history significant for glioblastoma 6 years ago, s/p radiation and chemotherapy, history of atherosclerosis and seizures, who was admitted on 03/26/2017 for sob and weakness. He was found to have acute pontine infarct on the right with hemorrhage and has developed left sided hemiplegia and aphasia. 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 Quezada on consultation for neurology - Dr. Weiss on consultation for physiatry - Dr. Bryan on consultation for cardiology - Continue PT/OT/ST 2) Hx UTI, finished antibiotic therapy - E. coli - Finished 7 day course of Zosyn - Dr. Rain on consultation 3) Atherosclerosis - Continue Lipitor 40 mg po HS - Continue ASA/Dipyridamole - Plavix 4) Type 2 DM - Continue Regular insulin sliding scale - Metformin - Januvia 5) Essential hypertension - Continue Labetalol 6) Depression - Continue Provigil 100 mg po daily - Lexapro 10 mg po daily 7) DVT prophylaxis - Heparin SQ
[2017-04-25] MEDS: Insulin Regular 100 units/ml SC SCH ×2 (05:44→21:59)
[2017-04-25] MEDS: Lacosamide 50 MG Tab PO SCH ×2 (09:24→21:57)
[2017-04-25] MEDS: Aspirin-Dipyridamole 200-25 mg ER Cap PO SCH ×2 (09:25→21:57)
[2017-04-25] MEDS: Acyclovir 5% OINT 5 APPLIC/5 GM TOP SCH ×3 (09:27→17:37)
--- NOTE | 2017-04-25 18:07 | CP.PCM.PN ---
Subjective - Date & Time of Evaluation Date of Evaluation: 04/25/17 Time of Evaluation: 18:06 - Subjective Subjective: Patient seen in room denies sob/cp denies joint pain doing well in PT with 50' ambulation with NBQC and moderate A. continue current care DC 04/30/17 Objective - Vital Signs/Intake and Output Vital Signs (last 24 hours): Temp Pulse Resp BP Pulse Ox 97.2 F L 71 20 124/63 98 04/25/17 08:00 04/25/17 14:36 04/25/17 08:00 04/25/17 14:36 04/25/17 08:00 - Medications Medications: Current Medications Acetaminophen (Tylenol 650 Mg Supp) 650 mg [place] Q4 PRN PRN Reason: Fever >100.4 F Last Admin: 04/04/17 11:31 Dose: 650 mg Acyclovir (Zovirax 5% Oint) 1 applic TOP TID [facility] Last Admin: 04/25/17 17:37 Dose: 1 applic Albuterol/Ipratropium (Duoneb 3 Mg/0.5 Mg (3 Ml) Ud) 3 ml INH RQ6 PRN PRN Reason: Shortness of Breath Albuterol/Ipratropium (Duoneb 3 Mg/0.5 Mg (3 Ml) Ud) 3 ml INH RQ6 PRN PRN Reason: Shortness of Breath Atorvastatin Calcium (Lipitor) 40 mg PO HS [facility] Last Admin: 04/24/17 21:50 Dose: 40 mg Clopidogrel Bisulfate (Plavix) 75 mg PO DAILY [facility] Last Admin: 04/25/17 09:25 Dose: 75 mg Clotrimazole (Lotrimin 1% Cream) 1 applic TOP BID [facility] Last Admin: 04/25/17 17:37 Dose: 1 applic Dipyridamole/Aspirin (Aggrenox 25-200 Mg) 1 ea PO Q12 [facility] Last Admin: 04/25/17 09:25 Dose: 1 ea Ergocalciferol (Drisdol 50,000 Intl Units Cap) 1 cap PO TUE [facility] Last Admin: 04/23/17 08:35 Dose: 1 cap Escitalopram Oxalate (Lexapro) 10 mg PO DAILY [facility] Last Admin: 04/25/17 09:26 Dose: 10 mg Famotidine (Pepcid) 20 mg PO BID [facility] Last Admin: 04/25/17 17:37 Dose: 20 mg Heparin Sodium (Porcine) (Heparin) 5,000 units SC Q12 [facility] PRN Reason: Protocol Last Admin: 04/25/17 09:26 Dose: 5,000 units Insulin Human Regular (Humulin R) 0 units SC 0600,2100 [facility] PRN Reason: Protocol Last Admin: 04/25/17 05:44 Dose: Not Given Labetalol HCl (Trandate) 50 mg PO Q8 [facility] Last Admin: 04/25/17 14:36 Dose: 50 mg Lacosamide (Vimpat) 150 mg PO Q12 [facility] Last Admin: 04/25/17 09:24 Dose: 150 mg Metformin HCl (Glucophage) 500 mg PO DAILYWM [facility] Last Admin: 04/25/17 09:00 Dose: 500 mg Modafinil (Provigil) 100 mg PO DAILY [facility] Last Admin: 04/25/17 09:24 Dose: 100 mg Sitagliptin Phosphate (Januvia) 25 mg PO DAILY [facility] Last Admin: 04/25/17 09:26 Dose: 25 mg Sodium Chloride ([place] Nasal [place]) 1 sprays [facility] Q4 PRN PRN Reason: Nasal congestion - Labs Labs: 04/21/17 13:19 04/21/17 13:19
[2017-04-26] MEDS: Insulin Regular 100 units/ml SC SCH ×2 (06:30→21:05)
[2017-04-26] MEDS: Aspirin-Dipyridamole 200-25 mg ER Cap PO SCH ×2 (09:50→21:06)
[2017-04-26] MEDS: Acyclovir 5% OINT 5 APPLIC/5 GM TOP SCH ×3 (09:52→17:00)
[2017-04-26] MEDS: Lacosamide 50 MG Tab PO SCH ×2 (09:59→23:22)
[2017-04-26] MEDS ORDERED: Lacosamide 50 MG Tab PO ONE ×2 (12:45→12:46)
--- NOTE | 2017-04-26 16:38 | RAD ---
PROCEDURE: Modified barium swallow study. HISTORY: dysphagia COMPARISON: Swallow study performed 03/29/2017. TECHNIQUE: Under fluoroscopic guidance, barium meals of various consistency were administered to the patient by the speech pathologist. Fluoroscopy time: 1:00 53.5 seconds. Cumulative dose 9.0 mGy. FINDINGS: A single episode of aspiration was noted with nectar thick liquids. Delayed cough reflex was evident. Delayed swallow initiation was also observed. One episode of flash penetration was seen with puree. IMPRESSION: Findings as above. Please refer to the detailed report and recommendations of the speech pathologist.
--- NOTE | 2017-04-26 18:05 | CP.PCM.PN ---
Subjective - Date & Time of Evaluation Date of Evaluation: 04/26/17 Time of Evaluation: 16:00 - Subjective Subjective: Patient was seen and examined doing physical therapy. More responsive today and able to state that he was doing good. He is cooperating well with therapy. Family in room had no complaints today. No acute events as per nursing staff. Objective - Vital Signs/Intake and Output Vital Signs (last 24 hours): Temp Pulse Resp BP Pulse Ox 97.9 F 68 22 140/70 98 04/26/17 09:02 04/26/17 15:00 04/26/17 09:02 04/26/17 15:00 04/26/17 09:02 - Medications Medications: Current Medications Acetaminophen (Tylenol 650 Mg Supp) 650 mg [place] Q4 PRN PRN Reason: Fever >100.4 F Last Admin: 04/04/17 11:31 Dose: 650 mg Acyclovir (Zovirax 5% Oint) 1 applic TOP TID [facility] Last Admin: 04/26/17 17:00 Dose: 1 applic Albuterol/Ipratropium (Duoneb 3 Mg/0.5 Mg (3 Ml) Ud) 3 ml INH RQ6 PRN PRN Reason: Shortness of Breath Albuterol/Ipratropium (Duoneb 3 Mg/0.5 Mg (3 Ml) Ud) 3 ml INH RQ6 PRN PRN Reason: Shortness of Breath Atorvastatin Calcium (Lipitor) 40 mg PO HS [facility] Last Admin: 04/25/17 21:58 Dose: 40 mg Clopidogrel Bisulfate (Plavix) 75 mg PO DAILY [facility] Last Admin: 04/26/17 09:50 Dose: 75 mg Clotrimazole (Lotrimin 1% Cream) 1 applic TOP BID [facility] Last Admin: 04/26/17 16:58 Dose: 1 applic Dipyridamole/Aspirin (Aggrenox 25-200 Mg) 1 ea PO Q12 [facility] Last Admin: 04/26/17 09:50 Dose: 1 ea Ergocalciferol (Drisdol 50,000 Intl Units Cap) 1 cap PO TUE [facility] Last Admin: 04/23/17 08:35 Dose: 1 cap Escitalopram Oxalate (Lexapro) 10 mg PO DAILY [facility] Last Admin: 04/26/17 09:52 Dose: 10 mg Famotidine (Pepcid) 20 mg PO BID [facility] Last Admin: 04/26/17 16:59 Dose: 20 mg Heparin Sodium (Porcine) (Heparin) 5,000 units SC Q12 [facility] PRN Reason: Protocol Last Admin: 04/26/17 09:51 Dose: 5,000 units Insulin Human Regular (Humulin R) 0 units SC 0600,2100 [facility] PRN Reason: Protocol Last Admin: 04/26/17 06:30 Dose: Not Given Labetalol HCl (Trandate) 50 mg PO Q8 [facility] Last Admin: 04/26/17 15:00 Dose: 50 mg Lacosamide (Vimpat) 150 mg PO Q12 [facility] Last Admin: 04/26/17 09:59 Dose: Not Given Metformin HCl (Glucophage) 500 mg PO DAILYWM [facility] Last Admin: 04/26/17 08:00 Dose: 500 mg Modafinil (Provigil) 100 mg PO DAILY [facility] Last Admin: 04/26/17 09:59 Dose: 100 mg Sitagliptin Phosphate (Januvia) 25 mg PO DAILY [facility] Last Admin: 04/26/17 09:52 Dose: 25 mg Sodium Chloride ([place] Nasal [place]) 1 sprays [facility] Q4 PRN PRN Reason: Nasal congestion - Labs Labs: 04/21/17 13:19 04/21/17 13:19 - Additional Findings Additional findings: Physical exam: Constitutional- cooperative, awake, alert. Head- NCAT, PERRL Eye- PERRL, normal accommodation ENT- normal exam, MMM. Neck- normal inspection, supple, no JVD Respiratory- mild rales in left base, no wheezes or rhonchi Cardiovascular- RRR, +S1, +S2 no MRG GI/Abdominal- normal bowel sounds, soft, no mass, no hsm Skin- warm, dry Extremities Exam- normal capillary refill, normal inspection Neurological Exam- +Alert +Left sided hemiplegia, + Aphasia Psych- normal mood, normal affect Assessment and Plan - Assessment and Plan (Free Text) Plan: ASSESSMENT/PLAN This is a 61 year old male with a past medical history significant for glioblastoma 6 years ago, s/p radiation and chemotherapy, history of atherosclerosis and seizures, who was admitted on 03/26/2017 for sob and weakness. He was found to have acute pontine infarct on the right with hemorrhage and has developed left sided hemiplegia and aphasia. 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 Quezada on consultation for neurology - Dr. Weiss on consultation for physiatry - Dr. Bryan on consultation for cardiology - Continue PT/OT/ST 2) Hx UTI, finished antibiotic therapy - E. coli - Finished 7 day course of Zosyn - Dr. Rain on consultation 3) Atherosclerosis - Continue Lipitor 40 mg po HS - Continue ASA/Dipyridamole - Plavix 4) Type 2 DM - Continue Regular insulin sliding scale - Metformin - Januvia 5) Essential hypertension - Continue Labetalol 6) Depression - Continue Provigil 100 mg po daily - Lexapro 10 mg po daily 7) DVT prophylaxis - Heparin SQ
[2017-04-27] MEDS ORDERED: Lacosamide 50 MG Tab PO SCH (01:00)
[2017-04-27] MEDS: Insulin Regular 100 units/ml SC SCH ×2 (06:45→21:48)
[2017-04-27] MEDS: Aspirin-Dipyridamole 200-25 mg ER Cap PO SCH ×2 (09:32→21:46)
[2017-04-27] MEDS: Acyclovir 5% OINT 5 APPLIC/5 GM TOP SCH ×3 (09:50→17:42)
--- NOTE | 2017-04-27 10:00 | CP.PCM.PN ---
Subjective - Date & Time of Evaluation Date of Evaluation: 04/27/17 Time of Evaluation: 10:00 - Subjective Subjective: Patient seen in PT no acute distress feels good able to speak simple words more clearly continue current care set for d/c to [facility] next week Objective - Vital Signs/Intake and Output Vital Signs (last 24 hours): Temp Pulse Resp BP Pulse Ox 97.3 F L 75 18 136/57 L 99 04/27/17 07:53 04/27/17 07:53 04/27/17 07:53 04/27/17 07:53 04/27/17 07:53 - Medications Medications: Current Medications Acetaminophen (Tylenol 650 Mg Supp) 650 mg [place] Q4 PRN PRN Reason: Fever >100.4 F Last Admin: 04/04/17 11:31 Dose: 650 mg Acyclovir (Zovirax 5% Oint) 1 applic TOP TID [facility] Last Admin: 04/27/17 09:50 Dose: 1 applic Albuterol/Ipratropium (Duoneb 3 Mg/0.5 Mg (3 Ml) Ud) 3 ml INH RQ6 PRN PRN Reason: Shortness of Breath Albuterol/Ipratropium (Duoneb 3 Mg/0.5 Mg (3 Ml) Ud) 3 ml INH RQ6 PRN PRN Reason: Shortness of Breath Atorvastatin Calcium (Lipitor) 40 mg PO HS [facility] Last Admin: 04/26/17 21:05 Dose: 40 mg Clopidogrel Bisulfate (Plavix) 75 mg PO DAILY [facility] Last Admin: 04/27/17 09:33 Dose: 75 mg Clotrimazole (Lotrimin 1% Cream) 1 applic TOP BID [facility] Last Admin: 04/27/17 09:34 Dose: 1 applic Dipyridamole/Aspirin (Aggrenox 25-200 Mg) 1 ea PO Q12 [facility] Last Admin: 04/27/17 09:32 Dose: 1 ea Ergocalciferol (Drisdol 50,000 Intl Units Cap) 1 cap PO TUE [facility] Last Admin: 04/23/17 08:35 Dose: 1 cap Escitalopram Oxalate (Lexapro) 10 mg PO DAILY [facility] Last Admin: 04/27/17 09:33 Dose: 10 mg Famotidine (Pepcid) 20 mg PO BID [facility] Last Admin: 04/27/17 09:33 Dose: 20 mg Heparin Sodium (Porcine) (Heparin) 5,000 units SC Q12 [facility] PRN Reason: Protocol Last Admin: 04/27/17 09:33 Dose: 5,000 units Insulin Human Regular (Humulin R) 0 units SC 0600,2100 [facility] PRN Reason: Protocol Last Admin: 04/27/17 06:45 Dose: Not Given Labetalol HCl (Trandate) 50 mg PO Q8 [facility] Last Admin: 04/27/17 06:37 Dose: Not Given Lacosamide (Vimpat) 150 mg PO Q12@0900,2100 [facility] Metformin HCl (Glucophage) 500 mg PO DAILYWM [facility] Last Admin: 04/27/17 08:00 Dose: 500 mg Modafinil (Provigil) 100 mg PO DAILY [facility] Last Admin: 04/27/17 09:49 Dose: 100 mg Sitagliptin Phosphate (Januvia) 25 mg PO DAILY [facility] Last Admin: 04/27/17 09:33 Dose: 25 mg Sodium Chloride ([place] Nasal [place]) 1 sprays [facility] Q4 PRN PRN Reason: Nasal congestion - Labs Labs: 04/21/17 13:19 04/21/17 13:19
[2017-04-27] MEDS: Lacosamide 50 MG Tab PO SCH ×2 (10:02→21:46)
[2017-04-28] MEDS: Insulin Regular 100 units/ml SC SCH ×2 (06:24→21:36)
[2017-04-28] MEDS: Aspirin-Dipyridamole 200-25 mg ER Cap PO SCH ×2 (08:13→21:26)
[2017-04-28] MEDS: Acyclovir 5% OINT 5 APPLIC/5 GM TOP SCH ×3 (08:15→16:54)
[2017-04-28] MEDS: Lacosamide 50 MG Tab PO SCH ×2 (09:26→21:29)
[2017-04-29] MEDS: Insulin Regular 100 units/ml SC SCH ×2 (06:05→21:16)
[2017-04-29] MEDS: Aspirin-Dipyridamole 200-25 mg ER Cap PO SCH ×2 (09:15→21:15)
[2017-04-29] MEDS: Acyclovir 5% OINT 5 APPLIC/5 GM TOP SCH ×3 (09:17→17:48)
[2017-04-29] MEDS: Lacosamide 50 MG Tab PO SCH ×2 (09:20→21:18)
--- NOTE | 2017-04-29 11:19 | CP.PCM.PN ---
Subjective - Date & Time of Evaluation Date of Evaluation: 04/29/17 Time of Evaluation: 11:00 - Subjective Subjective: Patient was seen and examined today sitting up in his wheelchair. Family present at bedside. Patient has had no acute events as per nursing staff. No new complaints. Doing well with physical therapy. Objective - Vital Signs/Intake and Output Vital Signs (last 24 hours): Temp Pulse Resp BP Pulse Ox 97.5 F L 73 20 142/72 97 04/29/17 07:40 04/29/17 07:40 04/29/17 07:40 04/29/17 07:40 04/29/17 07:40 - Medications Medications: Current Medications Acetaminophen (Tylenol 650 Mg Supp) 650 mg [place] Q4 PRN PRN Reason: Fever >100.4 F Last Admin: 04/04/17 11:31 Dose: 650 mg Acyclovir (Zovirax 5% Oint) 1 applic TOP TID [facility] Last Admin: 04/29/17 09:17 Dose: 1 applic Albuterol/Ipratropium (Duoneb 3 Mg/0.5 Mg (3 Ml) Ud) 3 ml INH RQ6 PRN PRN Reason: Shortness of Breath Albuterol/Ipratropium (Duoneb 3 Mg/0.5 Mg (3 Ml) Ud) 3 ml INH RQ6 PRN PRN Reason: Shortness of Breath Atorvastatin Calcium (Lipitor) 40 mg PO HS [facility] Last Admin: 04/28/17 21:26 Dose: 40 mg Clopidogrel Bisulfate (Plavix) 75 mg PO DAILY [facility] Last Admin: 04/29/17 09:16 Dose: 75 mg Clotrimazole (Lotrimin 1% Cream) 1 applic TOP BID [facility] Last Admin: 04/29/17 09:16 Dose: 1 applic Clotrimazole (Lotrimin 1% Cream) 1 applic TOP BID [facility] Last Admin: 04/29/17 09:16 Dose: 1 applic Dipyridamole/Aspirin (Aggrenox 25-200 Mg) 1 ea PO Q12 [facility] Last Admin: 04/29/17 09:15 Dose: 1 ea Ergocalciferol (Drisdol 50,000 Intl Units Cap) 1 cap PO TUE [facility] Last Admin: 04/23/17 08:35 Dose: 1 cap Escitalopram Oxalate (Lexapro) 10 mg PO DAILY [facility] Last Admin: 04/29/17 09:15 Dose: 10 mg Famotidine (Pepcid) 20 mg PO BID [facility] Last Admin: 04/29/17 09:16 Dose: 20 mg Heparin Sodium (Porcine) (Heparin) 5,000 units SC Q12 [facility] PRN Reason: Protocol Last Admin: 04/29/17 09:15 Dose: 5,000 units Insulin Human Regular (Humulin R) 0 units SC 0600,2100 [facility] PRN Reason: Protocol Last Admin: 04/29/17 06:05 Dose: Not Given Labetalol HCl (Trandate) 50 mg PO Q8 [facility] Last Admin: 04/29/17 06:27 Dose: 50 mg Lacosamide (Vimpat) 150 mg PO Q12@0900,2100 [facility] Last Admin: 04/29/17 09:20 Dose: 150 mg Metformin HCl (Glucophage) 500 mg PO DAILYWM [facility] Last Admin: 04/29/17 09:15 Dose: 500 mg Modafinil (Provigil) 100 mg PO DAILY [facility] Last Admin: 04/29/17 09:19 Dose: 100 mg Sitagliptin Phosphate (Januvia) 25 mg PO DAILY [facility] Last Admin: 04/29/17 09:15 Dose: 25 mg Sodium Chloride ([place] Nasal [place]) 1 sprays [facility] Q4 PRN PRN Reason: Nasal congestion - Labs Labs: 04/21/17 13:19 04/21/17 13:19 - Additional Findings Additional findings: Physical exam: Constitutional- cooperative, awake, alert. Head- NCAT, PERRL Eye- PERRL, normal accommodation ENT- normal exam, MMM. Neck- normal inspection, supple, no JVD Respiratory- mild rales in left base, no wheezes or rhonchi Cardiovascular- RRR, +S1, +S2 no MRG GI/Abdominal- normal bowel sounds, soft, no mass, no hsm Skin- warm, dry Extremities Exam- normal capillary refill, normal inspection Neurological Exam- +Alert +Left sided hemiplegia, + Aphasia Psych- normal mood, normal affect Assessment and Plan - Assessment and Plan (Free Text) Plan: ASSESSMENT/PLAN This is a 61 year old male with a past medical history significant for glioblastoma 6 years ago, s/p radiation and chemotherapy, history of atherosclerosis and seizures, who was admitted on 03/26/2017 for sob and weakness. He was found to have acute pontine infarct on the right with hemorrhage and has developed left sided hemiplegia and aphasia. 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 Quezada on consultation for neurology - Dr. Weiss on consultation for physiatry - Dr. Bryan on consultation for cardiology - Continue PT/OT/ST 2) Hx UTI, finished antibiotic therapy - E. coli - Finished 7 day course of Zosyn - Dr. Rain on consultation 3) Atherosclerosis - Continue Lipitor 40 mg po HS - Continue ASA/Dipyridamole - Plavix 4) Type 2 DM - Continue Regular insulin sliding scale - Metformin - Januvia 5) Essential hypertension - Continue Labetalol 6) Depression - Continue Provigil 100 mg po daily - Lexapro 10 mg po daily 7) DVT prophylaxis - Heparin SQ
[2017-04-30] MEDS: Insulin Regular 100 units/ml SC SCH (05:56)
[2017-04-30] MEDS: Aspirin-Dipyridamole 200-25 mg ER Cap PO SCH (08:33)
[2017-04-30] MEDS: Ergocalciferol 50,000 Intl Units Cap PO SCH (08:34)
[2017-04-30] MEDS: Acyclovir 5% OINT 5 APPLIC/5 GM TOP SCH ×2 (08:37→13:00)
[2017-04-30 08:46] VITALS: RESP 19; TEMP 98.1; O2SAT 95
[2017-04-30] MEDS: Lacosamide 50 MG Tab PO SCH (10:00)
--- NOTE | 2017-04-30 13:20 | CP.PCM.PN ---
Subjective - Date & Time of Evaluation Date of Evaluation: 04/30/17 Time of Evaluation: 13:19 - Subjective Subjective: Patient seen in room set for d/c to [facility] today family is very appreciative he is getting some ankle control back as well expect continued improvement in [facility] Objective - Vital Signs/Intake and Output Vital Signs (last 24 hours): Temp Pulse Resp BP Pulse Ox 98.1 F 82 19 130/78 95 04/30/17 08:46 04/30/17 08:46 04/30/17 08:46 04/30/17 08:46 04/30/17 08:46 - Medications Medications: Current Medications Acetaminophen (Tylenol 650 Mg Supp) 650 mg [place] Q4 PRN PRN Reason: Fever >100.4 F Last Admin: 04/04/17 11:31 Dose: 650 mg Acyclovir (Zovirax 5% Oint) 1 applic TOP TID [facility] Last Admin: 04/30/17 08:37 Dose: 1 applic Albuterol/Ipratropium (Duoneb 3 Mg/0.5 Mg (3 Ml) Ud) 3 ml INH RQ6 PRN PRN Reason: Shortness of Breath Albuterol/Ipratropium (Duoneb 3 Mg/0.5 Mg (3 Ml) Ud) 3 ml INH RQ6 PRN PRN Reason: Shortness of Breath Atorvastatin Calcium (Lipitor) 40 mg PO HS [facility] Last Admin: 04/29/17 21:15 Dose: 40 mg Clopidogrel Bisulfate (Plavix) 75 mg PO DAILY [facility] Last Admin: 04/30/17 08:33 Dose: 75 mg Clotrimazole (Lotrimin 1% Cream) 1 applic TOP BID [facility] Last Admin: 04/30/17 08:33 Dose: 1 applic Clotrimazole (Lotrimin 1% Cream) 1 applic TOP BID [facility] Last Admin: 04/30/17 08:37 Dose: 1 applic Dipyridamole/Aspirin (Aggrenox 25-200 Mg) 1 ea PO Q12 [facility] Last Admin: 04/30/17 08:33 Dose: 1 ea Ergocalciferol (Drisdol 50,000 Intl Units Cap) 1 cap PO TUE [facility] Last Admin: 04/30/17 08:34 Dose: 1 cap Escitalopram Oxalate (Lexapro) 10 mg PO DAILY [facility] Last Admin: 04/30/17 08:33 Dose: 10 mg Famotidine (Pepcid) 20 mg PO BID [facility] Last Admin: 04/30/17 08:33 Dose: 20 mg Heparin Sodium (Porcine) (Heparin) 5,000 units SC Q12 [facility] PRN Reason: Protocol Last Admin: 04/30/17 08:34 Dose: 5,000 units Insulin Human Regular (Humulin R) 0 units SC 0600,2100 [facility] PRN Reason: Protocol Last Admin: 04/30/17 05:56 Dose: Not Given Labetalol HCl (Trandate) 50 mg PO Q8 [facility] Last Admin: 04/30/17 05:59 Dose: 50 mg Lacosamide (Vimpat) 150 mg PO Q12@0900,2100 [facility] Last Admin: 04/29/17 21:18 Dose: 150 mg Metformin HCl (Glucophage) 500 mg PO DAILYWM [facility] Last Admin: 04/30/17 08:33 Dose: 500 mg Modafinil (Provigil) 100 mg PO DAILY [facility] Last Admin: 04/30/17 08:36 Dose: 100 mg Sitagliptin Phosphate (Januvia) 25 mg PO DAILY [facility] Last Admin: 04/30/17 08:33 Dose: 25 mg Sodium Chloride ([place] Nasal [place]) 1 sprays [facility] Q4 PRN PRN Reason: Nasal congestion - Labs Labs: 04/21/17 13:19 04/21/17 13:19
[2017-04-30 13:33] VITALS: BP 141/71; PULSE 72
--- NOTE | 2017-05-01 08:21 | DS ---
REASON FOR ADMISSION: This is a 61-year-old [place] male who was admitted to acute rehabilitation post CVA. COURSE OF HOSPITALIZATION: The patient was admitted to acute rehab unit at [facility]. The patient was started on occupational therapy, physical therapy. The patient was resumed on all his medications and he did well and was discharged to subacute rehab in a stable condition to continue his current medications. FINAL DIAGNOSES: Cerebrovascular accident, seizure disorder, status post craniotomy for excision of glioblastoma, hypertension, and type 2 diabetes mellitus. [facility] MD Ezio
== END 2017-04-30 15:30 | DRG 56 ==
PROVIDERS: ADMIT Internal Medicine; ATTEND Internal Medicine
PROC: F08Z3FZ Feeding/Eating Treatment using Assistive, Adaptive, Supportive or Protective Equipment (ICD-10-PCS; principal; 2017-04-01)
PROC: F08Z2FZ Grooming/Personal Hygiene Treatment using Assistive, Adaptive, Supportive or Protective Equipment (ICD-10-PCS; 2017-04-01)
PROC: F06Z3ZZ Aphasia Treatment (ICD-10-PCS; 2017-04-01)
PROC: F07L7ZZ Manual Therapy Techniques Treatment of Musculoskeletal System - Lower Back / Lower Extremity (ICD-10-PCS; 2017-04-01)
PROC: F07Z9FZ Gait Training/Functional Ambulation Treatment using Assistive, Adaptive, Supportive or Protective Equipment (ICD-10-PCS; 2017-04-01)
PROC: 5A09557 Assistance with Respiratory Ventilation, Greater than 96 Consecutive Hours, Continuous Positive Airway Pressure (ICD-10-PCS; 2017-04-01)
DX: I69.354 Hemiplegia and hemiparesis following cerebral infarction affecting left non-dominant side (principal); J69.0 Pneumonitis due to inhalation of food and vomit; N39.0 Urinary tract infection, site not specified; E11.9 Type 2 diabetes mellitus without complications; G40.909 Epilepsy, unspecified, not intractable, without status epilepticus; B96.20 Unspecified Escherichia coli [E. coli] as the cause of diseases classified elsewhere; F32.9 Major depressive disorder, single episode, unspecified; I10 Essential (primary) hypertension; Z85.841 Personal history of malignant neoplasm of brain; Z92.21 Personal history of antineoplastic chemotherapy; Z92.3 Personal history of irradiation; R33.8 Other retention of urine; I69.320 Aphasia following cerebral infarction; I25.10 Atherosclerotic heart disease of native coronary artery without angina pectoris; I69.321 Dysphasia following cerebral infarction; R21 Rash and other nonspecific skin eruption

== ENCOUNTER 2017-06-21 20:07 | Inpatient (IN) | payer MEDICARE ==
[2017-06-21 20:07] VITALS: BMI 29.2
[2017-06-21 21:30] LABS: BASO # 0.1 K/uL (0.0-0.2); BASO % 0.5 % (0.0-2.0); EOS # 0.2 K/uL (0.0-0.7); EOS % 1.9 % (0.0-4.0); HEMOGLOBIN 12.4 g/dL (12.0-18.0); LYMPH # 1.8 K/uL (1.0-4.3); MEAN CELL VOLUME 85.3 fl (80.0-94.0); MEAN CORPUSCULAR HEMOGLOBIN 28.7 pg (27.0-31.0); MEAN CORPUSCULAR HGB CONC 33.6 g/dL (33.0-37.0); MEAN PLATELET VOLUME 7.1 fl (7.2-11.7); MONO # 0.8 K/uL (0.0-0.8); NEUT # 8.5 K/uL (1.8-7.0); NEUT % 74.6 % (50.0-75.0); RBC 4.34 Mil/uL (4.40-5.90); RED CELL DISTRIBUTION WIDTH 16.7 % (11.5-14.5); WHITE BLOOD COUNT 11.4 K/uL (4.8-10.8)
[2017-06-21 21:39] LABS: PROTHROMBIN TIME 10.9 Seconds (9.8-13.1)
[2017-06-21 21:41] LABS: ALB/GLOB RATIO 1.1 (1.0-2.1); ALBUMIN 4.1 g/dL (3.5-5.0); ALT/SGPT 31 U/L (21-72); AST/SGOT 28 U/L (17-59); BLOOD UREA NITROGEN 20 mg/dl (9-20); CALCIUM 9.4 mg/dL (8.4-10.2); GFR AFRICAN-AMERICAN > 60; GFR NON-AFRICAN AMERICAN > 60; MAGNESIUM 2.1 MG/DL (1.6-2.3)
--- NOTE | 2017-06-21 21:44 | ED PDOC ---
HPI: Seizure Time Seen by Provider: 06/21/17 20:25 Chief Complaint (Nursing): Altered Mental Status Chief Complaint (Provider): Altered Mental Status History Per: Family () Additional Complaint(s): 61 year old male with h/o surgically resected GBM, stroke with residual LEFT hemiparesis and aphasia, and h/o seizures on Vimpat, presents to the emergency department accompanied by for seizure like activity that started around 9am this morning, 06/21/2017. As per history from , patient had about 6 episodes of seizure like activity in which he would have a jerking movement and raising right arm up over his head repeatedly that lasted about 1-2 minutes. After episodes patient would seen very tired. She also states patient has decreased activity and not as interactive with as he normally is. PMD: Dr. Les Holguin MD Past Medical History Reviewed: Historical Data, Nursing Documentation, Vital Signs Vital Signs: Last Vital Signs Temp 98.2 F 06/21/17 23:37 Pulse 86 06/21/17 23:37 Resp 16 06/21/17 23:37 BP 142/79 06/21/17 23:37 Pulse Ox 97 06/21/17 23:58 - Medical History PMH: Diabetes, HTN, Hypercholesterolemia, Seizures Denies: HIV, Chronic Kidney Disease - Surgical History Other surgeries: Craniotomy - Family History Family History: States: Unknown Family Hx - Home Medications Home Medications: Ambulatory Orders Medication Instructions Recorded Escitalopram [Lexapro] 10 mg PO DAILY 03/27/17 Labetalol [Trandate] 50 mg PO Q8 03/27/17 Lacosamide [Vimpat] 150 mg PO Q12 03/27/17 Metformin HCl [Glucophage] 500 mg PO DAILY 03/27/17 Albuterol/Ipratropium [Duoneb 3 3 ml INH RQ6 PRN neb 04/01/17 mg/0.5 mg (3 ml) UD] Aspirin/Dipyridamole [Aggrenox 1 ea PO Q12 04/01/17 25-200 mg] Atorvastatin [Lipitor] 40 mg PO HS 04/01/17 Ergocalciferol [Drisdol 50,000 50,000 iu PO QWK 04/01/17 Intl Units Cap] Acetaminophen [Tylenol 650 mg Supp] 650 mg DE Q4 PRN sup 04/30/17 Famotidine [Pepcid] 20 mg PO BID tab 04/30/17 Modafinil [Provigil] 100 mg PO DAILY tab 04/30/17 Alogliptin Benzoate [Nesina] 12.5 mg PO DAILY 06/21/17 - Allergies Allergies/Adverse Reactions: Allergies Allergy/AdvReac Type Severity Reaction Status Date / Time No Known Allergies Allergy Verified 04/01/17 20:07 Review of Systems Review Of Systems: ROS cannot be obtained secondary to pt's inabilty to answer questions. (Patient is currently unable to given history s/p seziure like activity) Physical Exam - Reviewed Nursing Documentation Reviewed: Yes Vital Signs Reviewed: Yes - Physical Exam Appears: Positive for: Non-toxic (appears chronically ill) Head Exam: Positive for: ATRAUMATIC, NORMOCEPHALIC Skin: Positive for: Warm, Dry, Pallor Eye Exam: Positive for: EOMI, PERRL ENT: Positive for: Other (tacky mucus membranes). Negative for: Pharyngeal Erythema, Tonsillar Exudate Neck: Positive for: Painless ROM, Supple Cardiovascular/Chest: Positive for: Regular Rate, Rhythm. Negative for: Murmur Respiratory: Positive for: Normal Breath Sounds. Negative for: Respiratory Distress Gastrointestinal/Abdominal: Positive for: Soft. Negative for: Tenderness Extremity: Positive for: Other (LEFThemiparesis) Neurologic/Psych: Positive for: Alert, Aphasia, Facial Droop - Laboratory Results Result Diagrams: 06/21/17 21:24 06/21/17 21:24 - ECG O2 Sat by Pulse Oximetry: 97 (RA) Pulse Ox Interpretation: Normal Medical Decision Making Medical Decision Making: Time: 2056 Initial Impression: Seizure like activity. Differential include but not limited to seizure, stroke, cerebral hemorrhage, electrolyte abnormality, dehydration, and recurrent seizure. Initial Plan: --Chemistry and lab work ordered --EKG --Chest x-ray Time: 2114 --Neurology consult with Dr. Vikas Wilson MD --Dr. Holguin is in emergency department to evaluate patient. Dr. Holguin discussed case with neurologist, Dr. wilson, who recommends CT scan and seizure precautions with possible MRI in the morning. No additional antiepileptics at this time. --Head CT Time: 2113 --Admit to hospital routine: as inpatient in telemetry for seizure-like movements under the care of Dr. Les Holguin MD Time: 23:[address] FINDINGS: Brain: Old area of ischemic change left temporoparietal region. No intracranial mass, mass effect, or midline shift. No hemorrhage. Prominence of the sulci and ventricular system consistent with mild atrophy. Ventricles: See above. Bones/joints: Unremarkable. No acute fracture. Soft tissues: Unremarkable. Sinuses: Partial opacification ethmoid air cells. Mastoid air cells: Unremarkable as visualized. No mastoid effusion. IMPRESSION: No acute intracranial abnormality. Scribe Attestation: Documented by Ranjana Barillas and Sudeep Johnston, acting as a scribe for Luna Duke MD. Provider Scribe Attestation: All medical record entries made by the Scribe were at my direction and personally dictated by me. I have reviewed the chart and agree that the record accurately reflects my personal performance of the history, physical exam, medical decision making, and the department course for this patient. I have also personally directed, reviewed, and agree with the discharge instructions and disposition. Disposition - Clinical Impression Clinical Impression: Seizure-like activity - Disposition Disposition Time: 21:15 Condition: GUARDED - Pt Status Changed To: Hospital Disposition Of: Inpatient - Admit Certification Admit to Inpatient:: After my assessment, the patient will require hospitalization for at least two midnights. This is because of the severity of symptoms shown, intensity of services needed, and/or the medical risk in this patient being treated as an outpatient. - POA Present On Arrival: Falls Or Trauma (risk)
--- NOTE | 2017-06-21 23:16 | CT ---
EXAM: CT Head Without Intravenous Contrast CLINICAL HISTORY: 61 years old, male; Signs and symptoms; Other: New onset tonic movements; Patient HX: HX of CVA TECHNIQUE: Axial computed tomography images of the head/brain without intravenous contrast. All CT scans at this facility use one or more dose reduction techniques, viz.: automated exposure control; ma/kV adjustment per patient size (including targeted exams where dose is matched to indication; i.e. head); or iterative reconstruction technique. Coronal and sagittal reformatted images were created and reviewed. COMPARISON: CT - HEAD W/O CONTRAST 2017-04-04 18:43 FINDINGS: Brain: Old area of ischemic change left temporoparietal region. No intracranial mass, mass effect, or midline shift. No hemorrhage. Prominence of the sulci and ventricular system consistent with mild atrophy. Ventricles: See above. Bones/joints: Unremarkable. No acute fracture. Soft tissues: Unremarkable. Sinuses: Partial opacification ethmoid air cells. Mastoid air cells: Unremarkable as visualized. No mastoid effusion. IMPRESSION: No acute intracranial abnormality.
[2017-06-22] MEDS ORDERED: Albuterol-Ipratrop 3 mg / 0.5 (3 ml) UD INH PRN (06:44)
[2017-06-22] MEDS ORDERED: Ergocalciferol 50,000 Intl Units Cap PO SCH (06:45)
--- NOTE | 2017-06-22 08:38 | RAD ---
HISTORY: tonic movements COMPARISON: No prior. FINDINGS: LUNGS: No active pulmonary disease. PLEURA: No significant pleural effusion identified, no pneumothorax apparent. CARDIOVASCULAR: Normal. OSSEOUS STRUCTURES: No significant abnormalities. VISUALIZED UPPER ABDOMEN: Normal. OTHER FINDINGS: None. IMPRESSION: No active disease.
[2017-06-22] MEDS ORDERED: ALOGLIPTIN BENZOATE 12.5 MG PO SCH (09:00)
[2017-06-22] MEDS ORDERED: Aspirin-Dipyridamole 200-25 mg ER Cap PO SCH (09:00)
[2017-06-22] MEDS ORDERED: Lacosamide 50 MG Tab PO SCH (09:00)
[2017-06-22] MEDS: Insulin Lispro (humaLOG) 100 Units/ml Inj SC SCH ×3 (09:59→16:08)
[2017-06-22 10:21] LABS: MAGNESIUM 2.1 MG/DL (1.6-2.3)
--- NOTE | 2017-06-22 10:30 | CARD ---
APPROVED REPORT EKG Measurement Heart [id number] <Conclusion> Normal sinus rhythm Normal ECG
[2017-06-22] MEDS ORDERED: Gadodiamide 287 MG/ML VIAL (15ML) IV ONE (10:49)
[2017-06-22 12:24] VITALS: O2SAT 96
--- NOTE | 2017-06-22 14:12 | CP.PCM.CON ---
History of Present Illness - History of Present Illness History of Present Illness: CONSULT DICTATED Hx AND DOCUMENTATION INCLUDING VIDEO REVIEWED BY ME MENTATION AND WEAKNESS ALL RESOLVED AND BACK TO HIS BASE LINE. MRI REVIEWED NO ACUTE STROKE OR MALIGNANT PROCESS CONTINUE TO OBSERVE NO NEED TO INCREASE OR ADD NEW AED FOR NOW CONTINUE AGGRENOX DVT PROPHYLAXIS AND PT Past Patient History - Past Medical History & Family History Past Medical History?: Yes - Past Social History Smoking Status: Never Smoked - CARDIAC Hx Cardiac Disorders: Yes Hx Hypercholesterolemia: Yes Hx Hypertension: Yes - PULMONARY Hx Respiratory Disorders: Yes Hx Sleep Apnea: Yes - NEUROLOGICAL Hx Neurological Disorder: Yes HX Cerebrovascular Accident: Yes (Left side weakness) Hx Seizures: Yes - HEENT Hx HEENT Problems: Yes Hx Difficulty Chewing: Yes Other/Comment: uses eyeglasses for reading and distance - RENAL Hx Chronic Kidney Disease: No - ENDOCRINE/METABOLIC Hx Endocrine Disorders: Yes Hx Diabetes Mellitus Type 2: Yes - HEMATOLOGICAL/ONCOLOGICAL Hx Blood Disorders: No Hx Human Immunodeficiency Virus (HIV): No - INTEGUMENTARY Hx Dermatological Problems: No - MUSCULOSKELETAL/RHEUMATOLOGICAL Hx Musculoskeletal Disorders: Yes Hx Falls: Yes - GASTROINTESTINAL Hx Gastrointestinal Disorders: No - GENITOURINARY/GYNECOLOGICAL Hx Genitourinary Disorders: No - PSYCHIATRIC Hx Psychophysiologic Disorder: Yes Hx Depression: Yes Hx Substance Use: No - SURGICAL HISTORY Hx Surgeries: Yes Other/Comment: s/p Craniotomy,Radiation and Chemotherapy=09/2010-Glioblastoma - ANESTHESIA Hx Anesthesia: Yes Hx Anesthesia Reactions: No Hx Malignant Hyperthermia: No Meds Allergies/Adverse Reactions: Allergies Allergy/AdvReac Type Severity Reaction Status Date / Time No Known Allergies Allergy Verified 04/01/17 20:07 - Medications Medications: Current Medications Acetaminophen (Tylenol 650 Mg Supp) 650 mg [place] Q4 PRN PRN Reason: Fever >100.4 F Albuterol/Ipratropium (Duoneb 3 Mg/0.5 Mg (3 Ml) Ud) 3 ml INH RQ6 PRN PRN Reason: Shortness of Breath Atorvastatin Calcium (Lipitor) 40 mg PO HS [facility] Dipyridamole/Aspirin (Aggrenox 25-200 Mg) 1 ea PO Q12 [facility] Last Admin: 06/22/17 09:50 Dose: 1 ea Ergocalciferol (Drisdol 50,000 Intl Units Cap) 1 cap PO QWK [facility] Last Admin: 06/22/17 09:50 Dose: 1 cap Escitalopram Oxalate (Lexapro) 10 mg PO DAILY [facility] Last Admin: 06/22/17 09:52 Dose: 10 mg Famotidine (Pepcid) 20 mg PO BID [facility] Last Admin: 06/22/17 09:57 Dose: 20 mg Insulin Human Lispro (Humalog) 0 units SC ACCU-CHECK [facility] PRN Reason: Protocol Last Admin: 06/22/17 12:12 Dose: Not Given Labetalol HCl (Trandate) 50 mg PO Q8 [facility] Last Admin: 06/22/17 09:57 Dose: 50 mg Lacosamide (Vimpat) 150 mg PO Q12 [facility] Last Admin: 06/22/17 09:56 Dose: 150 mg Metformin HCl (Glucophage) 500 mg PO DAILY [facility] Last Admin: 06/22/17 09:51 Dose: 500 mg Modafinil (Provigil) 100 mg PO DAILY [facility] Last Admin: 06/22/17 12:01 Dose: 100 mg Sitagliptin Phosphate (Januvia) 50 mg PO DAILY [facility] Last Admin: 06/22/17 09:50 Dose: 50 mg Results - Vital Signs Recent Vital Signs: Last Vital Signs Temp 98 F 06/22/17 12:00 Pulse 77 06/22/17 12:00 Resp 16 06/22/17 12:00 BP 131/76 06/22/17 12:00 Pulse Ox 96 06/22/17 12:00 - Labs Result Diagrams: 06/21/17 21:24 06/21/17 21:24 Labs: Laboratory Results - last 24 hr 06/21/17 06/21/17 06/21/17 20:33 21:20 21:24 WBC 11.4 H D RBC 4.34 L Hgb 12.4 Hct 37.0 MCV 85.3 MCH 28.7 MCHC 33.6 RDW 16.7 H Plt Count 257 MPV 7.1 L Neut % (Auto) 74.6 Lymph % (Auto) 16.0 L Payette % (Auto) 7.0 Eos % (Auto) 1.9 Baso % (Auto) 0.5 Neut # (Auto) 8.5 H Lymph # (Auto) 1.8 Payette # (Auto) 0.8 Eos # (Auto) 0.2 Baso # (Auto) 0.1 PT INR APTT Sodium Potassium Chloride Carbon Dioxide Anion Gap BUN Creatinine Est GFR ( Amer) Est GFR (Non-Af Amer) POC Glucose (mg/dL) 163 H Random Glucose Calcium Phosphorus Magnesium Total Bilirubin AST ALT Alkaline Phosphatase Troponin I Total Protein Albumin Globulin Albumin/Globulin Ratio Blood Type A POSITIVE Antibody Screen Negative BBK History Checked No verified bt 06/21/17 06/21/17 06/22/17 21:24 21:24 08:39 WBC RBC Hgb Hct MCV MCH MCHC RDW Plt Count MPV Neut % (Auto) Lymph % (Auto) Payette % (Auto) Eos % (Auto) Baso % (Auto) Neut # (Auto) Lymph # (Auto) Payette # (Auto) Eos # (Auto) Baso # (Auto) PT 10.9 INR 1.0 APTT 29.0 Sodium 141 Potassium 3.9 Chloride 102 Carbon Dioxide 23 Anion Gap 20 BUN 20 Creatinine 0.8 Est GFR ( Amer) > 60 Est GFR (Non-Af Amer) > 60 POC Glucose (mg/dL) Random Glucose 151 H Calcium 9.4 Phosphorus 2.9 3.6 Magnesium 2.1 2.1 Total Bilirubin 0.4 AST 28 ALT 31 Alkaline Phosphatase 79 Troponin I < 0.0120 Total Protein 7.9 Albumin 4.1 Globulin 3.8 Albumin/Globulin Ratio 1.1 Blood Type Antibody Screen BBK History Checked 06/22/17 12:11 WBC RBC Hgb Hct MCV MCH MCHC RDW Plt Count MPV Neut % (Auto) Lymph % (Auto) Payette % (Auto) Eos % (Auto) Baso % (Auto) Neut # (Auto) Lymph # (Auto) Payette # (Auto) Eos # (Auto) Baso # (Auto) PT INR APTT Sodium Potassium Chloride Carbon Dioxide Anion Gap BUN Creatinine Est GFR ( Amer) Est GFR (Non-Af Amer) POC Glucose (mg/dL) 106 Random Glucose Calcium Phosphorus Magnesium Total Bilirubin AST ALT Alkaline Phosphatase Troponin I Total Protein Albumin Globulin Albumin/Globulin Ratio Blood Type Antibody Screen BBK History Checked
[2017-06-22 16:12] VITALS: BP 118/69; PULSE 75; RESP 17; TEMP 97.9
--- NOTE | 2017-06-22 16:25 | MRI ---
PROCEDURE: MRI BRAIN WITH AND WITHOUT CONTRAST HISTORY: NEW ISCHEMIC OR MELEGNANT PROCESS COMPARISON: 04/05/2017 TECHNIQUE: Multiplanar, multisequence MR images of the brain were obtained with and without intravenous contrast enhancement. FINDINGS: HEMORRHAGE: None DWI: No evidence of an acute or early subacute infarction. BRAIN PARENCHYMA: No mass,mass effect or edema. Postoperative encephalomalacia noted in the left temporal lobe. Diffuse white matter signal abnormality throughout the supratentorial as well as the left brainstem compatible either with postradiation change or chronic white matter ischemic disease. No significant interval change since prior examination. No evidence of abnormal enhancement or mass to suggest recurrent tumor. ENHANCEMENT: No abnormal intracranial enhancement. VENTRICLES: Unremarkable. No hydrocephalus. CRANIUM: Unremarkable. ORBITS: Grossly unremarkable. PARANASAL SINUSES/MASTOIDS: Clear VASCULAR SYSTEM: Skull base flow voids intact. OTHER FINDINGS: None . IMPRESSION: Postoperative encephalomalacia noted in the left temporal lobe. Diffuse white matter signal abnormality throughout the supratentorial as well as the left brainstem compatible either with postradiation change or chronic white matter ischemic disease. No significant interval change since prior examination. No evidence of abnormal enhancement or mass to suggest recurrent tumor.
--- NOTE | 2017-06-23 13:09 | HP ---
HISTORY OF PRESENT ILLNESS: The patient is a 61-year-old British male with a history of multiple medical problems including CVA, status post craniotomy for glioblastoma 7 years ago. The patient was in subacute rehabilitation at when he was noticed to have abnormal dystonic movement of the left side of the body, which was repeated about six times. The patient was transferred to Emergency Room for evaluation. CT scan of the head was done that did not show any acute events. After Neurology was consulted, the patient was admitted for further management. REVIEW OF SYSTEMS: Other review of systems was negative. ALLERGIES: NO KNOWN ALLERGY. MEDICATIONS: As per MAR. PAST MEDICAL HISTORY: Type 2 diabetes mellitus, hypertension, status post craniotomy for glioblastoma, status post multiple CVAs with left-sided hemiparesis. SOCIAL HISTORY: No history of smoking, EtOH or substance abuse. FAMILY HISTORY: Noncontributory. PHYSICAL EXAMINATION: GENERAL: The patient was in bed, not in any cardiopulmonary distress. VITAL SIGNS: Blood pressure 138/77, temperature 98.2, respiratory rate 18, and pulse 84. HEENT: Pupils equal, reactive to light. Normal-appearing mucosa of the conjunctivae, oropharynx and nasal membrane mucosa. NECK: Supple. No JVD. No carotid bruit. No lymph node. No thyromegaly. CHEST AND LUNGS: Bilateral symmetrical expansion. Good air exchange. No rales, no rhonchi. CARDIOVASCULAR: PMI not localized. S1 and S2. No additional sounds. ABDOMEN: Normoactive bowel sounds. No tenderness. No organomegaly. No masses. EXTREMITIES: No cyanosis, no clubbing, no edema. LEATHER SPONGER: Alert, awake, and oriented x2. No neurological deficits could be appreciated except for left-sided hemiparesis. ASSESSMENT: 1. Abnormal dystonic movement of the hemiparetic side of uncertain etiology. 2. Hypertension. 3. Type 2 diabetes mellitus. 4. Status post multiple cerebrovascular accidents. 5. Status post craniotomy for glioblastoma 7 years ago. PLAN: Neurology consult. We will follow recommendations. Continue the anti-seizure medications for now. We will order MRI of the head with and without contrast. Les Holguin MD [facility] # [id number]
--- NOTE | 2017-06-23 13:13 | DS ---
REASON FOR ADMISSION: This is a 61-year-old [place] male with a history of multiple medical problems, who was admitted to abnormal movements of the left hemiparetic side. COURSE OF HOSPITALIZATION: The patient was admitted to telemetry floor and he was kept on neuro check. There was no change during the 18 hours. The patient stayed in the floor. The patient was seen by Neurology and no definite Etiology was given for this movement that was not repeated again. The patient had an MRI of the head with and without contrast that did not show any acute events. The patient was discharge back to subacute rehabilitation at [facility] to continue physical therapy and occupational therapy and to continue current treatment. FINAL DIAGNOSES: 1. Dystonia (abnormal movements of the left hemiparetic side of uncertain etiology). 2. Seizure disorder. 3. Multiple cerebrovascular accidents. 4. Hypertension. 5. Type 2 diabetes mellitus. Stoney MD Ezio
--- NOTE | 2017-06-24 09:10 | CON ---
NEUROLOGICAL INITIAL CONSULTATION DATE: ATTENDING PHYSICIAN: Les Holguin MD LOCATION: The patient is in room number 402, bed 2. REASON FOR CONSULTATION: Change in mental status. CHIEF COMPLAINT: The patient was brought in to [facility] with history of change in mental status with abnormal posturing. From neurological point of view, I was called in to evaluate him for further management. HISTORY OF PRESENT ILLNESS: Mr. Harish Caputo is a 61-year-old right-handed [place] male presenting with abnormal posturing of his left and right arm with change in mental status associating with changing in color. His describes around 2:30 p.m. while he was getting speech therapy, his left side of the face become reddish, the same time she noticed the left arm and shoulder become red. He also had episode of moving his left arm to the chest and right arm over his head. He has been videoed the posture, being reviewed by me as well. This kind of episode happened few times. The patient was found to be change in mental status. This episode not associating with any bitten tongue or foaming mouth or bowel and bladder incontinence. Ever since he is admitted, he does not have any new episode. PAST MEDICAL HISTORY: Significant for resection of glioblastoma multiforme four to five years ago. He was recently admitted in same hospital for his new left-sided weakness associating with pontine infarct. The patient did develop left hemiparesis from the stroke. The patient also had problem in swallow from the stroke. At present, the patient is able to tolerate oral food as well as with minimal assistance, he could able to ambulate with the support. The patient also had episodes of seizures, being controlled with Vimpat from his postsurgical scar versus previous tumor. He is also suffering from hypercholesterolemia. REVIEW OF SYSTEMS: Twelve-point systems being reviewed. From neuro, change in mental status. MEDICATIONS: Lexapro, Trandate, Vimpat, Glucophage, albuterol, Aggrenox, Drisdol, Tylenol, Pepcid, Provigil, and Nesina. PHYSICAL EXAMINATION: VITAL SIGNS: Blood pressure 131/76, mean arterial pressure of 94, respiratory rate 18, temperature 98 degrees Fahrenheit, and pulse rate 77. NECK: Supple. No carotid bruit. HEART: Heart sounds regular. CHEST: Fair air entry. EXTREMITIES: Left leg externally rotated with increased tone. NEUROLOGICAL: The patient is examined in the presence of his family members as well as his . He was fed by his . He could able to tolerate solid food. However, he is keeping his food in his mouth before he swallow. He attempted to eat more food. He knows he is in the hospital. He knows he makes a simple calculation well. No right and left confusion. He knows the current president as well. Speech is dysarthric. Cranial nerve examination; decreased visual threat on his right side. Extraocular movement decreased in all direction. Good corneal reflex. Mild facial asymmetry manifesting as a flattening of the left nasolabial fold. Hearing seems to be intact. Tongue is moist. Motor examination;decreased spontaneous movement on his left side to compare with his right side, which all related to his previous stroke, which is unchanged as per the family members. Deep tendon reflexes are hyperreflexic on the right side. Plantars are upgoing on his right side and left side. Respond to pain symmetrically on both sides. Coordination; dysmetria pronounced on his affected side. Gait deferred at this time. WORKUP: CT of the head being reviewed encephalomalacia of his left temporal lobe associating with multiple periventricular ischemic changes with atrophy. MRI of the brain also reviewed by me, which were compared with previous two MRIs in the past. No diffusion weighted images showed any perfusion or diffusion mismatch consistent with stroke. The patient does show encephalomalacia from his old stroke at left basal ganglia and mid indu on his right side. Postsurgical encephalomalacia also noted over left temporal region. LABORATORY DATA: Blood workup; WBC 11.4, hemoglobin 12.4, hematocrit 37.0, and platelets 257. PT 10.9, INR 1.0, and PTT 29.0. Sodium 141, potassium 3.9, chloride 102, bicarbonate 23, BUN 20, GFR more than 60, glucose 106, calcium 9.4, phosphorous 3.6, magnesium 2.1, and prolactin level is still pending. Liver functions are normal. CONCLUSION: Mr. Harshal Moreira has been presenting with possible focal seizure. However, the video recording not consistent with seizure episode. With the clinical history, this probably a focal seizures associating with mild disorientation probably related to complex pattern. Considering his clinical history and new stroke versus recurrent tumor should be ruled out, which were all ruled out by reviewing the MRI. This new episode of focal manifestation, I do not want to increase his Vimpat dose at present. We continue to observe him. If everything is okay, probably he can be discharged to his group home. Continue Vimpat 150 mg twice a day with Aggrenox. If any recurrent episode at that point, I would like to increase Vimpat to 200 mg twice a day. Otherwise, the patient is neurologically stable back to his baseline. Continue the present management and improve his ambulation as well with supervision. Extensive discussion with his all family members. The patient will be followed while he is in the hospital. Vikas Quezada MD
[2017-06-24 16:51] LABS: PROLACTIN 13.8 ng/mL (3.7-17.9)
== END 2017-06-22 17:43 | DRG 92 ==
LOC: H.ER 20:07 → H.ERHOLD 21:14 → H.TEL 06-22 00:37
PROVIDERS: ADMIT Internal Medicine; ATTEND Internal Medicine
DX: G24.9 Dystonia, unspecified (principal); I69.354 Hemiplegia and hemiparesis following cerebral infarction affecting left non-dominant side; G40.109 Localization-related (focal) (partial) symptomatic epilepsy and epileptic syndromes with simple partial seizures, not intractable, without status epilepticus; E11.9 Type 2 diabetes mellitus without complications; I10 Essential (primary) hypertension; I69.320 Aphasia following cerebral infarction; E78.00 Pure hypercholesterolemia, unspecified; Z85.841 Personal history of malignant neoplasm of brain; Z92.21 Personal history of antineoplastic chemotherapy